=== PATIENT | female | born 1940 | race Caucasian/White ===

== ENCOUNTER 2016-04-10 08:00 | Outpatient (CLI) | payer MEDICARE, OTHER | END 2016-04-10 08:01 | disposition home or self-care (01) | DX: E43 Unspecified severe protein-calorie malnutrition (principal); Z87.19 Personal history of other diseases of the digestive system; E87.8 Other disorders of electrolyte and fluid balance, not elsewhere classified ==

== ENCOUNTER 2016-04-16 10:00 | Outpatient (CLI) | payer MEDICARE | END 2016-04-16 10:01 | disposition home or self-care (01) | DX: E43 Unspecified severe protein-calorie malnutrition (principal); Z87.19 Personal history of other diseases of the digestive system; E87.8 Other disorders of electrolyte and fluid balance, not elsewhere classified ==

== ENCOUNTER 2016-04-23 09:00 | Outpatient (CLI) | payer MEDICARE | END 2016-04-23 09:01 | disposition home or self-care (01) | DX: E43 Unspecified severe protein-calorie malnutrition (principal); E87.8 Other disorders of electrolyte and fluid balance, not elsewhere classified; Z87.19 Personal history of other diseases of the digestive system ==

== ENCOUNTER 2016-04-30 08:45 | Outpatient (CLI) | payer MEDICARE | END 2016-04-30 08:46 | disposition home or self-care (01) | DX: E43 Unspecified severe protein-calorie malnutrition (principal); Z87.19 Personal history of other diseases of the digestive system; E87.8 Other disorders of electrolyte and fluid balance, not elsewhere classified ==

== ENCOUNTER 2016-05-09 13:19 | Outpatient (CLI) | payer MEDICARE | END 2016-05-09 13:20 | disposition home or self-care (01) | DX: E43 Unspecified severe protein-calorie malnutrition (principal); Z87.19 Personal history of other diseases of the digestive system; E87.8 Other disorders of electrolyte and fluid balance, not elsewhere classified ==

== ENCOUNTER 2016-05-14 09:00 | Outpatient (CLI) | payer MEDICARE | END 2016-05-14 09:01 | disposition home or self-care (01) | DX: E43 Unspecified severe protein-calorie malnutrition (principal); Z87.19 Personal history of other diseases of the digestive system; E87.8 Other disorders of electrolyte and fluid balance, not elsewhere classified ==

== ENCOUNTER 2016-05-21 20:04 | Outpatient (CLI) | payer MEDICARE | END 2016-05-21 20:05 | disposition home or self-care (01) | DX: E43 Unspecified severe protein-calorie malnutrition (principal); E87.8 Other disorders of electrolyte and fluid balance, not elsewhere classified; Z87.19 Personal history of other diseases of the digestive system ==

== ENCOUNTER 2016-05-28 12:48 | Outpatient (CLI) | payer MEDICARE | END 2016-05-28 12:49 | disposition home or self-care (01) | DX: E43 Unspecified severe protein-calorie malnutrition (principal); Z87.19 Personal history of other diseases of the digestive system; E87.8 Other disorders of electrolyte and fluid balance, not elsewhere classified ==

== ENCOUNTER 2016-06-05 10:23 | Outpatient (CLI) | payer MEDICARE | END 2016-06-05 10:24 | disposition home or self-care (01) | DX: E43 Unspecified severe protein-calorie malnutrition (principal); Z87.19 Personal history of other diseases of the digestive system; E87.8 Other disorders of electrolyte and fluid balance, not elsewhere classified ==

== ENCOUNTER 2016-06-11 09:05 | Outpatient (CLI) | payer MEDICARE | END 2016-06-11 09:06 | disposition home or self-care (01) | DX: E43 Unspecified severe protein-calorie malnutrition (principal); Z87.19 Personal history of other diseases of the digestive system; E87.8 Other disorders of electrolyte and fluid balance, not elsewhere classified ==

== ENCOUNTER 2016-06-18 09:00 | Outpatient (CLI) | payer MEDICARE | END 2016-06-18 09:01 | disposition home or self-care (01) | DX: Z87.19 Personal history of other diseases of the digestive system (principal); E43 Unspecified severe protein-calorie malnutrition; E87.8 Other disorders of electrolyte and fluid balance, not elsewhere classified ==

== ENCOUNTER 2016-06-25 08:00 | Outpatient (CLI) | payer MEDICARE | END 2016-06-25 08:01 | disposition home or self-care (01) | DX: E43 Unspecified severe protein-calorie malnutrition (principal); Z87.19 Personal history of other diseases of the digestive system; E87.8 Other disorders of electrolyte and fluid balance, not elsewhere classified ==

== ENCOUNTER 2016-07-02 08:45 | Outpatient (CLI) | payer MEDICARE | END 2016-07-02 08:46 | disposition home or self-care (01) | DX: E43 Unspecified severe protein-calorie malnutrition (principal); E87.8 Other disorders of electrolyte and fluid balance, not elsewhere classified; Z87.19 Personal history of other diseases of the digestive system ==

== ENCOUNTER 2016-10-19 18:18 | Outpatient (CLI) | payer MEDICARE, OTHER | END 2016-10-19 18:19 | disposition short-term general hospital (02) | LOC: EMS 18:18 | PROVIDERS: ATTEND Surgery | DX: M25.552 Pain in left hip (principal); W18.39XA Other fall on same level, initial encounter; Y93.H2 Activity, gardening and landscaping; Y92.008 Other place in unspecified non-institutional (private) residence as the place of occurrence of the external cause | CPT/HCPCS: A0170; A0425; A0429 ==

== ENCOUNTER 2016-10-24 08:00 | Outpatient (CLI) | payer MEDICARE, OTHER ==
[2016-10-24 18:37] LABS: BASOPHILS # (AUTO) 0.1 10^3/uL (0.0-0.1); BASOPHILS % (AUTO) 0.7 %; EOSINOPHILS # (AUTO) 0.2 10^3/uL (0.0-0.7); EOSINOPHILS % (AUTO) 2.1 %; HCT - HEMATOCRIT 32.7 % (37.0-47.0); HGB - HEMOGLOBIN 10.8 g/dL (12.0-16.0); LYMPHOCYTES # (AUTO) 0.4 10^3/uL (1.5-3.5); LYMPHOCYTES % (AUTO) 5.2 %; MEAN CORPUSCULAR HEMOGLOBIN 29.3 pg (27.0-31.0); MEAN CORPUSCULAR HGB CONC 32.9 g/dL (32.0-36.0); MEAN CORPUSCULAR VOLUME 88.8 fL (81.0-99.0); MEAN PLATELET VOLUME 8.4 fL (7.9-10.8); MONOCYTES # (AUTO) 0.9 10^3/uL (0.0-1.0); MONOCYTES % (AUTO) 11.2 %; NEUTROPHILS # (AUTO) 6.8 10^3/uL (1.5-6.6); NEUTROPHILS % (AUTO) 80.8 %; NUCLEATED RED BLOOD CELLS AUTO 0.1 /100WBC; RED BLOOD COUNT 3.68 10^6/uL (4.20-5.40); RED CELL DISTRIBUTION WIDTH 14.9 % (12.0-15.0); UNCORRECTED WHITE BLOOD COUNT 8.4 x10^3/uL; WHITE BLOOD COUNT 8.4 x10^3/uL (4.8-10.8)
[2016-10-24 18:50] LABS: ALBUMIN/GLOBULIN RATIO 0.9 (1.0-2.2); BILIRUBIN,TOTAL 0.7 mg/dL (0.2-1.0); CALCIUM 8.9 mg/dL (8.5-10.3); MAGNESIUM 1.8 mg/dL (1.7-2.8); PHOSPHORUS 4.2 mg/dL (2.5-4.6); TOTAL PROTEIN 6.4 g/dL (6.7-8.2)
== END 2016-10-24 08:01 | disposition home or self-care (01) ==
LOC: LAB.F 08:00
PROVIDERS: ATTEND Urology
DX: K90.9 Intestinal malabsorption, unspecified (principal); K90.49 Malabsorption due to intolerance, not elsewhere classified
CPT/HCPCS: 36415; 80053; 83735; 84100; 85025

== ENCOUNTER 2016-10-30 08:00 | Outpatient (CLI) | payer MEDICARE, OTHER ==
[2016-10-30 19:08] LABS: BASOPHILS # (AUTO) 0.1 10^3/uL (0.0-0.1); BASOPHILS % (AUTO) 1.2 %; EOSINOPHILS # (AUTO) 0.5 10^3/uL (0.0-0.7); EOSINOPHILS % (AUTO) 5.6 %; HCT - HEMATOCRIT 32.6 % (37.0-47.0); HGB - HEMOGLOBIN 10.7 g/dL (12.0-16.0); LYMPHOCYTES # (AUTO) 0.8 10^3/uL (1.5-3.5); LYMPHOCYTES % (AUTO) 9.4 %; MEAN CORPUSCULAR HEMOGLOBIN 29.5 pg (27.0-31.0); MEAN CORPUSCULAR HGB CONC 32.8 g/dL (32.0-36.0); MEAN CORPUSCULAR VOLUME 89.8 fL (81.0-99.0); MEAN PLATELET VOLUME 7.7 fL (7.9-10.8); MONOCYTES # (AUTO) 0.7 10^3/uL (0.0-1.0); NEUTROPHILS # (AUTO) 6.7 10^3/uL (1.5-6.6); NEUTROPHILS % (AUTO) 75.8 %; NUCLEATED RED BLOOD CELLS AUTO 0.1 /100WBC; RED BLOOD COUNT 3.63 10^6/uL (4.20-5.40); RED CELL DISTRIBUTION WIDTH 14.6 % (12.0-15.0); UNCORRECTED WHITE BLOOD COUNT 8.8 x10^3/uL; WHITE BLOOD COUNT 8.8 x10^3/uL (4.8-10.8)
[2016-10-30 19:22] LABS: ALBUMIN/GLOBULIN RATIO 0.9 (1.0-2.2); BILIRUBIN,TOTAL 0.5 mg/dL (0.2-1.0); CREATININE 1.1 mg/dL (0.4-1.0); PHOSPHORUS 4.4 mg/dL (2.5-4.6); POTASSIUM 3.4 mmol/L (3.5-5.0); TOTAL PROTEIN 6.7 g/dL (6.7-8.2)
== END 2016-10-30 08:01 | disposition home or self-care (01) ==
LOC: LAB.R 08:00
PROVIDERS: ATTEND Urology
DX: K90.9 Intestinal malabsorption, unspecified (principal); K90.49 Malabsorption due to intolerance, not elsewhere classified
CPT/HCPCS: 80053; 83735; 84100; 85025

== ENCOUNTER → 2016-11-06 | Outpatient (CLI) | payer MEDICARE, OTHER ==
[2016-11-06 19:34] LABS: BASOPHILS % (AUTO) 0.4 %; EOSINOPHILS % (AUTO) 0.3 %; HCT - HEMATOCRIT 33.4 % (37.0-47.0); HGB - HEMOGLOBIN 10.7 g/dL (12.0-16.0); LYMPHOCYTES # (AUTO) 0.6 10^3/uL (1.5-3.5); LYMPHOCYTES % (AUTO) 7.1 %; MEAN CORPUSCULAR HEMOGLOBIN 28.8 pg (27.0-31.0); MEAN CORPUSCULAR HGB CONC 31.9 g/dL (32.0-36.0); MEAN CORPUSCULAR VOLUME 90.3 fL (81.0-99.0); MEAN PLATELET VOLUME 7.7 fL (7.9-10.8); MONOCYTES # (AUTO) 0.5 10^3/uL (0.0-1.0); MONOCYTES % (AUTO) 6.2 %; NEUTROPHILS # (AUTO) 7.4 10^3/uL (1.5-6.6); RED BLOOD COUNT 3.69 10^6/uL (4.20-5.40); RED CELL DISTRIBUTION WIDTH 14.7 % (12.0-15.0); UNCORRECTED WHITE BLOOD COUNT 8.6 x10^3/uL; WHITE BLOOD COUNT 8.6 x10^3/uL (4.8-10.8)
[2016-11-06 19:35] LABS: ALBUMIN/GLOBULIN RATIO 0.8 (1.0-2.2); BILIRUBIN,TOTAL 0.5 mg/dL (0.2-1.0); CREATININE 1.3 mg/dL (0.4-1.0); MAGNESIUM 2.1 mg/dL (1.7-2.8); PHOSPHORUS 3.7 mg/dL (2.5-4.6); POTASSIUM 3.4 mmol/L (3.5-5.0)
== END ==
LOC: LAB.R 08:00
PROVIDERS: ATTEND Urology
DX: K90.9 Intestinal malabsorption, unspecified (principal); K90.49 Malabsorption due to intolerance, not elsewhere classified
CPT/HCPCS: 80053; 83735; 84100; 84134; 84478; 85025; 86140

== ENCOUNTER → 2016-11-13 | Outpatient (CLI) | payer MEDICARE, OTHER ==
[2016-11-13 18:19] LABS: BASOPHILS # (AUTO) 0.1 10^3/uL (0.0-0.1); BASOPHILS % (AUTO) 1.3 %; EOSINOPHILS # (AUTO) 0.6 10^3/uL (0.0-0.7); EOSINOPHILS % (AUTO) 5.6 %; HCT - HEMATOCRIT 33.1 % (37.0-47.0); HGB - HEMOGLOBIN 10.7 g/dL (12.0-16.0); LYMPHOCYTES # (AUTO) 0.6 10^3/uL (1.5-3.5); LYMPHOCYTES % (AUTO) 6.2 %; MEAN CORPUSCULAR HEMOGLOBIN 28.7 pg (27.0-31.0); MEAN CORPUSCULAR HGB CONC 32.3 g/dL (32.0-36.0); MEAN CORPUSCULAR VOLUME 88.9 fL (81.0-99.0); MEAN PLATELET VOLUME 8.3 fL (7.9-10.8); MONOCYTES # (AUTO) 0.9 10^3/uL (0.0-1.0); MONOCYTES % (AUTO) 9.5 %; NEUTROPHILS # (AUTO) 7.6 10^3/uL (1.5-6.6); NEUTROPHILS % (AUTO) 77.4 %; RED BLOOD COUNT 3.72 10^6/uL (4.20-5.40); RED CELL DISTRIBUTION WIDTH 14.5 % (12.0-15.0); UNCORRECTED WHITE BLOOD COUNT 9.8 x10^3/uL; WHITE BLOOD COUNT 9.8 x10^3/uL (4.8-10.8)
[2016-11-13 18:30] LABS: BILIRUBIN,TOTAL 0.7 mg/dL (0.2-1.0); CREATININE 0.9 mg/dL (0.4-1.0); PHOSPHORUS 3.9 mg/dL (2.5-4.6); POTASSIUM 4.4 mmol/L (3.5-5.0); TOTAL PROTEIN 6.7 g/dL (6.7-8.2)
== END ==
LOC: LAB.F 08:00
PROVIDERS: ATTEND Urology
DX: K90.9 Intestinal malabsorption, unspecified (principal); K90.89 Other intestinal malabsorption
CPT/HCPCS: 80053; 83735; 84100; 85025

== ENCOUNTER 2016-11-20 08:00 | Outpatient (CLI) | payer MEDICARE, OTHER ==
[2016-11-21 11:33] LABS: BASOPHILS # (AUTO) 0.1 10^3/uL (0.0-0.1); BASOPHILS % (AUTO) 1.2 %; EOSINOPHILS # (AUTO) 0.5 10^3/uL (0.0-0.7); EOSINOPHILS % (AUTO) 5.4 %; HCT - HEMATOCRIT 34.7 % (37.0-47.0); LYMPHOCYTES # (AUTO) 0.6 10^3/uL (1.5-3.5); LYMPHOCYTES % (AUTO) 6.7 %; MEAN CORPUSCULAR HEMOGLOBIN 28.5 pg (27.0-31.0); MEAN CORPUSCULAR HGB CONC 31.8 g/dL (32.0-36.0); MEAN CORPUSCULAR VOLUME 89.6 fL (81.0-99.0); MEAN PLATELET VOLUME 8.4 fL (7.9-10.8); MONOCYTES # (AUTO) 0.5 10^3/uL (0.0-1.0); MONOCYTES % (AUTO) 5.7 %; NEUTROPHILS # (AUTO) 7.6 10^3/uL (1.5-6.6); NUCLEATED RED BLOOD CELLS AUTO 0.1 /100WBC; RED BLOOD COUNT 3.87 10^6/uL (4.20-5.40); UNCORRECTED WHITE BLOOD COUNT 9.4 x10^3/uL; WHITE BLOOD COUNT 9.4 x10^3/uL (4.8-10.8)
[2016-11-21 11:41] LABS: ALBUMIN/GLOBULIN RATIO 0.9 (1.0-2.2); BILIRUBIN,TOTAL 0.5 mg/dL (0.2-1.0); CALCIUM 9.4 mg/dL (8.5-10.3); MAGNESIUM 1.9 mg/dL (1.7-2.8); PHOSPHORUS 3.6 mg/dL (2.5-4.6); POTASSIUM 4.5 mmol/L (3.5-5.0); TOTAL PROTEIN 7.1 g/dL (6.7-8.2)
== END 2016-11-20 08:01 | disposition home or self-care (01) ==
LOC: LAB.F 08:00
PROVIDERS: ATTEND Urology
DX: K90.49 Malabsorption due to intolerance, not elsewhere classified (principal); K63.2 Fistula of intestine; K91.2 Postsurgical malabsorption, not elsewhere classified; K90.89 Other intestinal malabsorption
CPT/HCPCS: 36415; 80053; 83735; 84100; 84134; 84478; 85025; 86140

== ENCOUNTER 2016-11-27 11:00 | Outpatient (CLI) | payer MEDICARE, OTHER ==
[2016-11-27 17:46] LABS: BASOPHILS # (AUTO) 0.1 10^3/uL (0.0-0.1); BASOPHILS % (AUTO) 0.7 %; EOSINOPHILS # (AUTO) 0.4 10^3/uL (0.0-0.7); EOSINOPHILS % (AUTO) 5.2 %; HCT - HEMATOCRIT 33.2 % (37.0-47.0); HGB - HEMOGLOBIN 10.8 g/dL (12.0-16.0); LYMPHOCYTES # (AUTO) 0.6 10^3/uL (1.5-3.5); LYMPHOCYTES % (AUTO) 7.4 %; MEAN CORPUSCULAR HEMOGLOBIN 28.6 pg (27.0-31.0); MEAN CORPUSCULAR HGB CONC 32.4 g/dL (32.0-36.0); MEAN CORPUSCULAR VOLUME 88.4 fL (81.0-99.0); MEAN PLATELET VOLUME 8.1 fL (7.9-10.8); MONOCYTES # (AUTO) 0.4 10^3/uL (0.0-1.0); MONOCYTES % (AUTO) 5.7 %; NEUTROPHILS # (AUTO) 6.3 10^3/uL (1.5-6.6); RED BLOOD COUNT 3.76 10^6/uL (4.20-5.40); RED CELL DISTRIBUTION WIDTH 14.9 % (12.0-15.0); UNCORRECTED WHITE BLOOD COUNT 7.8 x10^3/uL; WHITE BLOOD COUNT 7.8 x10^3/uL (4.8-10.8)
[2016-11-27 18:18] LABS: ALBUMIN/GLOBULIN RATIO 0.9 (1.0-2.2); BILIRUBIN,TOTAL 0.4 mg/dL (0.2-1.0); CALCIUM 8.9 mg/dL (8.5-10.3); PHOSPHORUS 3.9 mg/dL (2.5-4.6); TOTAL PROTEIN 6.8 g/dL (6.7-8.2)
== END 2016-11-27 11:01 | disposition home or self-care (01) ==
LOC: LAB.R 11:00
PROVIDERS: ATTEND Urology
DX: K90.49 Malabsorption due to intolerance, not elsewhere classified (principal)
CPT/HCPCS: 80053; 83735; 84100; 85025

== ENCOUNTER 2016-12-04 09:30 | Outpatient (CLI) | payer MEDICARE, OTHER ==
[2016-12-04 18:17] LABS: BASOPHILS % (AUTO) 0.6 %; EOSINOPHILS # (AUTO) 0.4 10^3/uL (0.0-0.7); EOSINOPHILS % (AUTO) 4.5 %; HCT - HEMATOCRIT 35.1 % (37.0-47.0); HGB - HEMOGLOBIN 11.4 g/dL (12.0-16.0); LYMPHOCYTES # (AUTO) 0.7 10^3/uL (1.5-3.5); LYMPHOCYTES % (AUTO) 8.7 %; MEAN CORPUSCULAR HEMOGLOBIN 28.7 pg (27.0-31.0); MEAN CORPUSCULAR HGB CONC 32.5 g/dL (32.0-36.0); MEAN CORPUSCULAR VOLUME 88.4 fL (81.0-99.0); MEAN PLATELET VOLUME 8.4 fL (7.9-10.8); MONOCYTES # (AUTO) 0.5 10^3/uL (0.0-1.0); MONOCYTES % (AUTO) 6.5 %; NEUTROPHILS # (AUTO) 6.2 10^3/uL (1.5-6.6); NEUTROPHILS % (AUTO) 79.7 %; RED BLOOD COUNT 3.97 10^6/uL (4.20-5.40); UNCORRECTED WHITE BLOOD COUNT 7.8 x10^3/uL; WHITE BLOOD COUNT 7.8 x10^3/uL (4.8-10.8)
[2016-12-04 18:22] LABS: BILIRUBIN,TOTAL 0.7 mg/dL (0.2-1.0); BUN - BLOOD UREA NITROGEN 70 mg/dL (6-20); CALCIUM 9.1 mg/dL (8.5-10.3); CARBON DIOXIDE - CO2 18 mmol/L (21-32); CHLORIDE 110 mmol/L (101-111); CREATININE 0.9 mg/dL (0.4-1.0); GFR - MDRD 61 (>89); GLUCOSE 120 mg/dL (70-100); PHOSPHORUS 3.9 mg/dL (2.5-4.6); POTASSIUM 3.7 mmol/L (3.5-5.0); PREALBUMIN 24 mg/dL (18-45); SODIUM 136 mmol/L (135-145); TOTAL PROTEIN 6.9 g/dL (6.7-8.2); TRIGLYCERIDES 63 mg/dL
== END 2016-12-04 09:31 | disposition home or self-care (01) ==
LOC: LAB.R 09:30
PROVIDERS: ATTEND Urology
DX: K90.49 Malabsorption due to intolerance, not elsewhere classified (principal)
CPT/HCPCS: 80053; 83735; 84100; 84134; 84478; 85025; 86140

== ENCOUNTER → 2016-12-11 | Outpatient (CLI) | payer MEDICARE, OTHER ==
[2016-12-11 19:20] LABS: BASOPHILS % (AUTO) 0.5 %; EOSINOPHILS # (AUTO) 0.3 10^3/uL (0.0-0.7); EOSINOPHILS % (AUTO) 4.5 %; HCT - HEMATOCRIT 37.4 % (37.0-47.0); HGB - HEMOGLOBIN 11.9 g/dL (12.0-16.0); LYMPHOCYTES # (AUTO) 0.9 10^3/uL (1.5-3.5); LYMPHOCYTES % (AUTO) 12.5 %; MEAN CORPUSCULAR HEMOGLOBIN 28.2 pg (27.0-31.0); MEAN CORPUSCULAR VOLUME 88.1 fL (81.0-99.0); MEAN PLATELET VOLUME 8.5 fL (7.9-10.8); MONOCYTES # (AUTO) 0.7 10^3/uL (0.0-1.0); MONOCYTES % (AUTO) 10.2 %; NEUTROPHILS % (AUTO) 72.3 %; RED BLOOD COUNT 4.24 10^6/uL (4.20-5.40); RED CELL DISTRIBUTION WIDTH 15.1 % (12.0-15.0)
[2016-12-11 19:54] LABS: BILIRUBIN,TOTAL 0.5 mg/dL (0.2-1.0); BUN - BLOOD UREA NITROGEN 67 mg/dL (6-20); CALCIUM 9.6 mg/dL (8.5-10.3); CARBON DIOXIDE - CO2 18 mmol/L (21-32); CHLORIDE 108 mmol/L (101-111); CREATININE 0.9 mg/dL (0.4-1.0); GFR - MDRD 61 (>89); GLUCOSE 85 mg/dL (70-100); MAGNESIUM 2.2 mg/dL (1.7-2.8); PHOSPHORUS 3.7 mg/dL (2.5-4.6); POTASSIUM 4.6 mmol/L (3.5-5.0); PREALBUMIN 29 mg/dL (18-45); SODIUM 136 mmol/L (135-145); TOTAL PROTEIN 7.3 g/dL (6.7-8.2); TRIGLYCERIDES 84 mg/dL
== END ==
LOC: LAB.F 08:00
PROVIDERS: ATTEND Urology
DX: K90.49 Malabsorption due to intolerance, not elsewhere classified (principal)
CPT/HCPCS: 80053; 83735; 84100; 84134; 84478; 85025; 86140

== ENCOUNTER 2016-12-18 19:34 | Outpatient (CLI) | payer MEDICARE, OTHER ==
[2016-12-18 17:43] LABS: BASOPHILS % (AUTO) 0.5 %; EOSINOPHILS # (AUTO) 0.2 10^3/uL (0.0-0.7); EOSINOPHILS % (AUTO) 2.6 %; HCT - HEMATOCRIT 36.3 % (37.0-47.0); HGB - HEMOGLOBIN 11.9 g/dL (12.0-16.0); LYMPHOCYTES % (AUTO) 10.5 %; MEAN CORPUSCULAR HEMOGLOBIN 28.2 pg (27.0-31.0); MEAN CORPUSCULAR HGB CONC 32.7 g/dL (32.0-36.0); MEAN CORPUSCULAR VOLUME 86.2 fL (81.0-99.0); MEAN PLATELET VOLUME 8.6 fL (7.9-10.8); MONOCYTES % (AUTO) 11.1 %; NEUTROPHILS # (AUTO) 7.1 10^3/uL (1.5-6.6); NEUTROPHILS % (AUTO) 75.3 %; RED BLOOD COUNT 4.21 10^6/uL (4.20-5.40); RED CELL DISTRIBUTION WIDTH 15.1 % (12.0-15.0); UNCORRECTED WHITE BLOOD COUNT 9.4 x10^3/uL; WHITE BLOOD COUNT 9.4 x10^3/uL (4.8-10.8)
[2016-12-18 18:02] LABS: BILIRUBIN,TOTAL 0.5 mg/dL (0.2-1.0); CALCIUM 9.4 mg/dL (8.5-10.3); CREATININE 0.9 mg/dL (0.4-1.0); PHOSPHORUS 3.5 mg/dL (2.5-4.6); POTASSIUM 4.3 mmol/L (3.5-5.0); TOTAL PROTEIN 7.3 g/dL (6.7-8.2)
== END 2016-12-18 19:35 | disposition home or self-care (01) ==
LOC: LAB.R 19:34
PROVIDERS: ATTEND Urology
DX: K90.49 Malabsorption due to intolerance, not elsewhere classified (principal)
CPT/HCPCS: 80053; 83735; 84100; 85025

== ENCOUNTER 2017-06-05 13:35 | Inpatient (IN) | payer MEDICARE, OTHER ==
--- NOTE | 2017-06-05 14:44 | ED Physician Documentation ---
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 for about 2 yr, and she had bladder cancer and has a RLQ urostomy for about 1 yr, and 2 weeks ago she had more surgery to create a new urostomy to be used for self catheterization and she has a R chest central access device for TPN her R chest dressing was changed at [facility] yesterday and a diff antibiotic patch was used now there is redness to the chest and she has had a fever to 100.3 no cough NVD new urinary sx Review of Systems Constitutional: reports: Fever Throat: denies: Sore throat Cardiac: denies: Chest pain / pressure Respiratory: denies: Dyspnea, Cough GI: denies: Abdominal Pain, Nausea, Vomiting, Diarrhea : reports: Other (urostomy) Skin: reports: Rash Endocrine: denies: Easy bruising / bleeding Immunocompromised: denies: Immunocompromised PD PAST MEDICAL HISTORY - Past Medical History Cardiovascular: None Neuro: None Endocrine/Autoimmune: HyPOthyroidism GI: Other : Other Psych: None Musculoskeletal: None Derm: None - Past Surgical History Past Surgical History: Yes General: Cholecystectomy, Bowel surgery Ortho: Hip replacement /CROSS CUT SAWYER: Hysterectomy, Oophrectomy HEENT: Tonsil/Adenoidectomy - Present Medications Home Medications: Ambulatory Orders Medication Instructions Recorded Confirmed Bumetanide [Bumetanide] 2 mg PO DAILY 06/05/17 06/05/17 Escitalopram Oxalate [Lexapro] 20 mg PO DAILY 06/05/17 06/05/17 Levothyroxine Sodium [Synthroid] 112 mcg PO QDAC 06/05/17 06/05/17 Potassium Chloride 20 meq PO DAILYWM 06/05/17 06/05/17 oxyCODONE [Roxicodone] 5 mg PO Q6H PRN 06/05/17 06/05/17 - Allergies Allergies/Adverse Reactions: Allergies Allergy/AdvReac Type Severity Reaction Status Date / Time codeine Allergy Nausea Verified 06/05/17 13:52 ciprofloxacin [From Cipro] AdvReac bones ache Verified 06/05/17 13:52 ciprofloxacin HCl * AdvReac bones ache Verified 06/05/17 13:52 [From Cipro] - Social History Does the pt smoke?: No Smoking Status: Former smoker Does the pt have substance abuse?: No - Immunizations Immunizations are current?: Yes PD ED PE NORMAL - Vitals Vital signs reviewed: Yes (tachy) - General General: Alert and oriented X 3 - Neck Neck: Supple, no meningeal sign - Cardiac Cardiac: RRR, No murmur, Other - Respiratory Respiratory: No respiratory distress, Clear bilaterally - Abdomen Abdomen: Soft, Non tender, Other (LLQ ileostomy, 2 RLQ ileostomy, the new one is leaking urine around the tube) - Derm Derm: Other (R chest with diffuse erythema, under op site dressing there is increased geomtric erythema suggesting some local chemical rxn, but there is also a 3 X 2 cm bullae containing thick green pus approx 1 cm above actual device insertion site, no crepitus, culture obtained and in doing dso bullae sloughed off) - Extremities Extremities: Other (mild symm edema) - Neuro Neuro: Alert and oriented X 3 Results - Vitals Vitals: Vital Signs - 24 hr 06/05/17 13:45 Temperature 37.4 C Heart Rate 109 H Respiratory 20 Rate Blood Pressure 110/75 O2 Saturation 95 Oxygen O2 Source Room air - Labs Labs: Microbiology 06/05/17 14:25 Wound Culture - Preliminary Abscess Laboratory Tests 06/05/17 06/05/17 06/05/17 15:26 15:26 15:26 WBC 13.5 H RBC 4.60 Hgb 12.0 Hct 36.9 L MCV 80.3 L MCH 26.2 L MCHC 32.6 RDW 17.7 H Plt Count 567 H MPV 7.1 L Neut # 11.5 H Lymph # 0.7 L [place] # 1.1 H Eos # 0.1 Baso # 0.2 H Absolute Nucleated RBC 0.00 Nucleated RBC % 0.0 Sodium 137 Potassium 3.7 Chloride 95 L Carbon Dioxide 27 Anion Gap 15.0 H BUN 32 H Creatinine 1.2 H Estimated GFR (MDRD) 44 L Glucose 117 H Lactic Acid 1.3 Calcium 8.8 PD MEDICAL DECISION MAKING - ED course ED course: seen by [facility] as well, site cleaned dressing changed erythema seems [employer] party an acute inflammatory rxn to new dressing but also febroile 100.3 at home, elev WBC and purulence on exam at this time infection is actually just above line insertion site so hopefully if tx aggressively will not need to pull line rec pt atay for obs overnight to get IV ab no hx MRSA and pt is very worried about getting C diff again so just gave zosyn and florastor blood cx were pulled from central line as well and periph paged hospitalist at 1700 d/w hospitalist at 1810 Departure - Departure Disposition: 66 [facility] DC/Xfer Clinical Impression: Cellulitis Qualifiers: Site of cellulitis: trunk Site of cellulitis of trunk: chest wall Qualified Code(s): L03.313 - Cellulitis of chest wall Condition: Fair
--- NOTE | 2017-06-05 15:26 | XRAY Report ---
EXAM: CHEST RADIOGRAPHY EXAM DATE: 06/05/2017 03:09 PM. CLINICAL HISTORY: Infected Right chest central access. COMPARISON: None. TECHNIQUE: 2 views. FINDINGS: Lungs/Pleura: Horizontal band opacities extend across the left mid lung to the pleura from the left h ilum, could represent malignancy, scarring or pneumonia. There are no comparisons. Small left pleural effusion. No pneumothorax. Mediastinum: Heart and mediastinal contours are unremarkable. Other: Right central line with the tip at the superior vena cava/right atrial junction. IMPRESSION: Horizontal band opacities extend across the left mid lung to the pleura from the left hil um, could represent malignancy, scarring or pneumonia. There are no comparisons. Small left pleural e ffusion. [facility] Referring Provider Line: [phone] SITE ID: [id number]
[2017-06-05 15:43] LABS: BASOPHILS # (AUTO) 0.2 10^3/uL (0.0-0.1); BASOPHILS % (AUTO) 1.2 %; EOSINOPHILS # (AUTO) 0.1 10^3/uL (0.0-0.7); EOSINOPHILS % (AUTO) 0.4 %; LYMPHOCYTES # (AUTO) 0.7 10^3/uL (1.5-3.5); LYMPHOCYTES % (AUTO) 5.1 %; MEAN CORPUSCULAR HEMOGLOBIN 26.2 pg (27.0-31.0); MEAN CORPUSCULAR HGB CONC 32.6 g/dL (32.0-36.0); MEAN CORPUSCULAR VOLUME 80.3 fL (81.0-99.0); MEAN PLATELET VOLUME 7.1 fL (7.9-10.8); MONOCYTES # (AUTO) 1.1 10^3/uL (0.0-1.0); MONOCYTES % (AUTO) 8.1 %; NEUTROPHILS # (AUTO) 11.5 10^3/uL (1.5-6.6); NEUTROPHILS % (AUTO) 85.2 %; PLT - PLATELET COUNT 567 10^3/uL (130-450); RED CELL DISTRIBUTION WIDTH 17.7 % (12.0-15.0); WHITE BLOOD COUNT 13.5 x10^3/uL (4.8-10.8)
[2017-06-05 15:54] LABS: CALCIUM 8.8 mg/dL (8.5-10.3); CREATININE 1.2 mg/dL (0.4-1.0)
[2017-06-05] MEDS ORDERED: SACCHAROMYCES BOULARDII 250 MG CAPSULE PO STA (17:03)
[2017-06-05] MEDS ORDERED: PIPERACILLIN/TAZOBACTAM 3.375 GM in SODIUM CHLORIDE 0.9% MINIBAG 100 ML IV STA (17:03)
[2017-06-05] MEDS ORDERED: PROCHLORPERAZINE 10 MG/2 ML VIAL IVP PRN (19:40)
[2017-06-05] MEDS ORDERED: TEMAZEPAM 15 MG CAPSULE PO PRN (19:40)
[2017-06-05] MEDS ORDERED: CLINDAMYCIN 600 MG/50 ML 50 ML IV SCH (20:00)
[2017-06-05] MEDS: SODIUM CHLORIDE FLUSH 0.9% 10 ML SYRINGE IVP PRN (21:10)
[2017-06-05] MEDS: CLINDAMYCIN 600 MG/50 ML 50 ML IV SCH (21:11)
[2017-06-05] MEDS: D5.45NS W/20 MEQ KCL 1,000 ML IV SCH (21:11)
--- NOTE | 2017-06-05 21:46 | HISTORY & PHYSICAL EXAMINATION ---
History of Present Illness - Admitted From Admitted From:: home - History Obtained From Records Reviewed: yes History obtained from: patient - History of Present Illness HPI Comment/Other: Mrs. Princess Aldana is a very pleasant 77-year-old female who has a history of malnutrition for which she takes nightly TPN through port in her chest. She also has multiple cancer history. She has been having some increasing discomfort in the area of her port and came into the emergency department today where an abscess was drained just superior to the port. She is brought into the hospital for IV antibiotics and monitoring. History - Past Medical History Cardiovascular: reports: None, Congestive heart failure Respiratory: reports: None Neuro: reports: None Endocrine/Autoimmune: reports: HyPOthyroidism, Other (thyroid cancer history) GI: reports: Other : reports: Other (bladder cancer history) HEENT: reports: None Psych: reports: None Musculoskeletal: reports: None Derm: reports: None MRSA Hx?: No Other Past Medical History: urostomy, TPN at night (started 9 months due to malabsorption) - Past Surgical History General: reports: Cholecystectomy, Bowel surgery Ortho: reports: Hip replacement /[employer]: reports: Hysterectomy, Oophrectomy, Other (s/p cystectomy, creation of neobladder) HEENT: reports: Tonsil/Adenoidectomy, Other (thyroidectomy) Meds/Allgy - Home Medications Home Medications: Ambulatory Orders Medication Instructions Recorded Confirmed Bumetanide [Bumetanide] 2 mg PO DAILY 06/05/17 06/05/17 Escitalopram Oxalate [Lexapro] 20 mg PO DAILY 06/05/17 06/05/17 Levothyroxine Sodium [Synthroid] 112 mcg PO QDAC 06/05/17 06/05/17 Multivitamin [Multiple Vitamins] 1 tab DAILY 06/05/17 06/05/17 Potassium Chloride 20 meq PO DAILYWM 06/05/17 06/05/17 oxyCODONE [Roxicodone] 5 mg PO Q6H PRN 06/05/17 06/05/17 - Allergies Allergies/Adverse Reactions: Allergies Allergy/AdvReac Type Severity Reaction Status Date / Time codeine Allergy Nausea Verified 06/05/17 13:52 ciprofloxacin [From Cipro] AdvReac bones ache Verified 06/05/17 13:52 ciprofloxacin HCl * AdvReac bones ache Verified 06/05/17 13:52 [From Cipro] Review of Systems - Constitutional Constitutional: denies: Fatigue, Fever, Chills, Malaise - Eyes Eyes: denies: Pain, Irritation, Blurred vision, Dipolpia - Ears, Nose & Throat Ears, Nose & Throat: denies: Ear pain, Hearing loss, Hearing aids, Tinnitus, Vertigo, Nasal pain, Nasal discharge - Cardiovascular Cariovascular: denies: Irregular heart rate, Palpitations, Chest pain, Edema - Respiratory Respiratory: denies: Cough, Sputum production, Wheezing, Snoring - Gastrointestinal Gastrointestinal: denies: Abdominal pain, Abdominal distention, Constipation, Diarrhea, Change in bowel habits, Rectal bleeding - Genitourinary Genitourinary: denies: Dysuria, Frequency, Urgency, Hematuria - Musculoskeletal Musculoskeletal: denies: Muscle pain, Back pain, Muscle aches, Stiffness - Integumentary Integumentary: reports: Pruritis, Lesions, Other (abscess r chest) - Neurological Neurological: denies: General weakness, Focal weakness, Headache, Dizziness, Numbness - Psychiatric Psychiatric: denies: Depression, Anxiety, Suicidal, Hallucinations - Endocrine Endocrine: denies: Polyuria, Polydypsia, Polyphagia, Intolerance to cold - Hematologic/Lymphatic Hematologic/Lymphatic: denies: Anemia, Bruising, Petechiae, Blood clots, Lymphadenopathy - All Other Systems All Other Systems: reports: Reviewed and negative Exam - Vital Signs Reviewed Vital Signs: Yes Vital Signs: Vital Signs x48h Temp Pulse Resp BP Pulse Ox 06/05/17 20:17 36.6 C 90 18 83/60 L 98 - Physical Exam General Appearance: positive: No acute distress, Alert Eyes Bilateral: positive: Normal inspection, PERRL, EOMI, No lid inflammation, Conjunctivae nml, No scleral icterus ENT: positive: ENT inspection nml, Pharynx nml, No signs of dehydration Neck: positive: Nml inspection, Thyroid nml, No JVD, Trachea midline. negative : Thyromegaly Respiratory: positive: Chest non-tender, No respiratory distress, Breath sounds nml. negative: Wheezes, Rales, Rhonchi Cardiovascular: positive: Regular rate & rhythm, No murmur, No gallop Peripheral Pulses: positive: 1+ Abdomen: positive: Non-tender, No organomegaly, Nml bowel sounds, No distention. negative: Guarding, Rebound Back: positive: Nml inspection. negative: CVA tenderness (R), CVA tenderness (L ) Skin: positive: Warm, Dry, Other (rubor around area of abscess superior to port) . negative: Cyanosis, Pallor Extremities: positive: Non-tender, Full ROM, Nml appearance, No pedal edema Neurologic/Psychiatric: positive: Oriented x3, CN's nml (2-12), Motor nml, Sensation nml, Mood/affect nml Conclusion/Plan - Problem List (1) Cellulitis Conclusion/Plan: The pt had an abscess drained in the ED, I have put her on clindamycin IV. Will monitor overnight, if pt remains stable will consider d/c home tomorrow. Qualifiers: Site of cellulitis: trunk Site of cellulitis of trunk: chest wall Qualified Code(s): L03.313 - Cellulitis of chest wall (2) CHF (congestive heart failure) Conclusion/Plan: Pt has CHF history, no signs of CHF exacerbation at this time. Continue home medications. (3) Anxiety and depression Conclusion/Plan: Well managed, continue Lexapro (4) Hypothyroid Conclusion/Plan: Continue levothyroxine. Will order TSH level. - Lab Results Lab results reviewed: Yes Fish Bones: 06/05/17 15:26 06/05/17 15:26 - Diagnostic Imaging Results Diagnostic Imaging Results: positive: Final report reviewed Diagnostic Imaging Results Comments: EXAM: CHEST RADIOGRAPHY EXAM DATE: 06/05/2017 03:09 PM. CLINICAL HISTORY: Infected Right chest central access. COMPARISON: None. TECHNIQUE: 2 views. FINDINGS: Lungs/Pleura: Horizontal band opacities extend across the left mid lung to the pleura from the left hilum, could represent malignancy, scarring or pneumonia. There are no comparisons. Small left pleural effusion. No pneumothorax. Mediastinum: Heart and mediastinal contours are unremarkable. Other: Right central line with the tip at the superior vena cava/right atrial junction. IMPRESSION: Horizontal band opacities extend across the left mid lung to the pleura from the left hilum, could represent malignancy, scarring or pneumonia. There are no comparisons. Small left pleural effusion. Core Measures - Anticipated LOS I expect patient to be DC'd or transferred within 96 hours.: Yes - DVT/VTE - Prophylaxis VTE/DVT Device ordered at admit?: Yes
[2017-06-05 22:19] LABS: BILIRUBIN,URINE NEGATIVE (NEGATIVE); GLUCOSE, URINE (UA) NEGATIVE (NEGATIVE); KETONES,URINE (UA) NEGATIVE (NEGATIVE); LEUKOCYTE ESTERASE, URINE MODERATE (NEGATIVE); NITRITE,URINE NEGATIVE (NEGATIVE); OCCULT BLOOD,URINE MODERATE (NEGATIVE); PROTEIN,URINE NEGATIVE (NEGATIVE); UROBILINOGEN,URINE 0.2 (NORMAL) E.U./dL (NORMAL)
[2017-06-05 22:32] LABS: CLARITY,URINE CLOUDY (CLEAR)
[2017-06-05 22:38] LABS: RBC,URINE TNTC /HPF (0-5); WBC CLUMPS,URINE PRESENT
[2017-06-05 22:39] LABS: BACTERIA,URINE Moderate /HPF (None Seen); SQUAMOUS EPITHELIAL CELL,UR FEW Squamous (<= Few)
[2017-06-06] MEDS: SODIUM CHLORIDE FLUSH 0.9% 10 ML SYRINGE IVP SCH ×3 (01:32→15:48)
[2017-06-06] MEDS: CLINDAMYCIN 600 MG/50 ML 50 ML IV SCH ×2 (06:01→14:26)
[2017-06-06] MEDS: D5.45NS W/20 MEQ KCL 1,000 ML IV SCH ×2 (06:12→19:57)
[2017-06-06] MEDS: LEVOTHYROXINE 112 MCG TABLET PO SCH (06:13)
[2017-06-06] MEDS: oxyCODONE 5 MG TABLET PO PRN ×4 (06:32→21:27)
[2017-06-06] MEDS: POTASSIUM CHLORIDE 20 MEQ TABLET PO SCH (08:20)
[2017-06-06] MEDS: ESCITALOPRAM 10 MG TABLET PO SCH (08:20)
[2017-06-06] MEDS: BUMETANIDE 1 MG TABLET PO SCH (08:25)
[2017-06-06] MEDS: POLYETHYLENE GLYCOL 3350 17 GM PACKET PO SCH (08:26)
[2017-06-06 09:07] LABS: BASOPHILS # (AUTO) 0.1 10^3/uL (0.0-0.1); BASOPHILS % (AUTO) 0.8 %; EOSINOPHILS # (AUTO) 0.1 10^3/uL (0.0-0.7); EOSINOPHILS % (AUTO) 1.7 %; LYMPHOCYTES # (AUTO) 0.6 10^3/uL (1.5-3.5); LYMPHOCYTES % (AUTO) 7.4 %; MEAN CORPUSCULAR HGB CONC 32.1 g/dL (32.0-36.0); MEAN CORPUSCULAR VOLUME 80.9 fL (81.0-99.0); MEAN PLATELET VOLUME 6.9 fL (7.9-10.8); MONOCYTES # (AUTO) 0.8 10^3/uL (0.0-1.0); MONOCYTES % (AUTO) 9.2 %; NEUTROPHILS # (AUTO) 6.8 10^3/uL (1.5-6.6); NEUTROPHILS % (AUTO) 80.9 %; PLT - PLATELET COUNT 479 10^3/uL (130-450); RED BLOOD COUNT 4.23 10^6/uL (4.20-5.40); RED CELL DISTRIBUTION WIDTH 17.3 % (12.0-15.0); WHITE BLOOD COUNT 8.4 x10^3/uL (4.8-10.8)
[2017-06-06 09:20] LABS: ALBUMIN 2.5 g/dL (3.2-5.5); ALBUMIN/GLOBULIN RATIO 0.6 (1.0-2.2); BILIRUBIN,TOTAL 0.6 mg/dL (0.2-1.0); CALCIUM 8.5 mg/dL (8.5-10.3); CREATININE 1.1 mg/dL (0.4-1.0); TOTAL PROTEIN 6.6 g/dL (6.7-8.2)
--- NOTE | 2017-06-06 13:07 | PROVIDER PROGRESS NOTE ---
Subjective - Prog Note Date Prog Note Date: 06/06/17 Prog Note Time: 08:00 - Subjective Pt reports feeling: No change, Worse Subjective: Chloé complains of moderate to severe right upper chest and neck pain that is related to the infected RU chest port. She denies other chest pain, SOB, N/V or a new cough. Current Medications - Current Medications Current Medications: Active Medications Bumetanide (Bumex) 2 mg PO DAILY [facility] Last Admin: 06/07/17 10:21 Dose: 2 mg Escitalopram Oxalate (Lexapro) 20 mg PO DAILY [facility] Last Admin: 06/07/17 10:17 Dose: 20 mg Potassium Chloride/Dextrose/Sod Cl (D5.45ns W/20 Meq Kcl) 1,000 mls @ 100 mls/ hr IV .Q10H [facility] Last Admin: 06/07/17 09:31 Dose: 100 mls/hr Cefepime HCl 2 gm/ Sodium (Chloride) 100 mls @ 200 mls/hr IV BID [facility] Last Infusion: 06/07/17 11:11 Dose: Infused Vancomycin HCl 1 gm/ Sodium (Chloride) 250 mls @ 167 mls/hr IV Q24H [facility] Multivitamins 10 ml/ Amino (Acids/Electrolytes/Dextrose) 2,010 mls @ 83 mls/hr IV Q24H [facility] PRN Reason: Protocol Last Admin: 06/07/17 00:32 Dose: 83 mls/hr Fat Emulsion Intravenous (Intralipid 20%) 250 mls @ 21 mls/hr IV Q24H [facility] Last Admin: 06/07/17 00:32 Dose: 21 mls/hr Chromium/Copper/Manganese/Seleni/Zn 1 ml/ Sodium Chloride 51 mls @ 5 mls/hr IV Q24H [facility] Last Infusion: 06/07/17 09:31 Dose: Infused Magnesium Sulfate (Magnesium Sulfate) 2 gm in 50 mls @ 50 mls/hr IV Q1H [facility] Stop: 06/07/17 13:59 Potassium Chloride (Potassium Chloride) 10 meq in 100 mls @ 100 mls/hr IV Q1H [facility] Stop: 06/07/17 15:59 Iron Sucrose 200 mg/ Sodium (Chloride) 110 mls @ 110 mls/hr IV ONCE ONE Stop: 06/07/17 12:59 Levothyroxine Sodium (Synthroid) 112 mcg PO QDAC [facility] Last Admin: 06/07/17 06:04 Dose: 112 mcg Oxycodone HCl (Roxicodone) 5 mg PO Q4HR PRN PRN Reason: Pain 5 to 7 Last Admin: 06/07/17 10:17 Dose: 5 mg Polyethylene Glycol (Miralax) 17 gm PO DAILY [facility] Last Admin: 06/07/17 10:24 Dose: Not Given Potassium Chloride (K-Dur) 20 meq PO DAILYWM [facility] Last Admin: 06/07/17 10:18 Dose: 20 meq Prochlorperazine Edisylate (Compazine Inj) 10 mg IVP Q6HR PRN PRN Reason: Nausea / Vomiting Last Admin: 06/06/17 15:48 Dose: 10 mg Sodium Chloride (Normal Saline Flush 0.9%) 10 ml IVP PRN PRN PRN Reason: NEEDED PER PROVIDER ORDERS Last Admin: 06/07/17 06:04 Dose: 10 ml Sodium Chloride (Normal Saline Flush 0.9%) 10 ml IVP 0100,0900,1700 [facility] Last Admin: 06/07/17 10:24 Dose: Not Given Temazepam (Restoril) 15 mg PO QPM PRN PRN Reason: Insomnia Bumetanide [Bumetanide] 4 mg PO DAILY 06/05/17 Escitalopram Oxalate [Lexapro] 20 mg PO DAILY 06/05/17 Levothyroxine Sodium [Synthroid] 112 mcg PO QDAC 06/05/17 Multivitamin [Multiple Vitamins] 1 tab DAILY 06/05/17 Potassium Chloride 20 meq PO DAILYWM 06/05/17 oxyCODONE [Roxicodone] 5 mg PO Q6H PRN 06/05/17 Objective - Vital Signs/Intake & Output Reviewed Vital Signs: Yes Vital Signs: Vital Signs x48h Temp Pulse Resp BP Pulse Ox 06/06/17 08:00 37.2 C 89 17 92/69 93 Intake & Output: Intake & Output 06/03/17 06/04/17 06/05/17 06/06/17 23:59 23:59 23:59 23:59 Intake Total 150 1721.667 Output Total 425 900 Balance -275 821.667 - Objective General Appearance: positive: Alert, Moderate distress, Anxious Eyes Bilateral: positive: Normal inspection Eyes: OU Conjunctivae pale ENT: positive: ENT inspection nml, Pharynx nml, Dry mucous membranes Neck: positive: Nml inspection, Thyroid nml, No JVD, Stiff neck Respiratory: positive: Chest non-tender, No respiratory distress, Wheezes Cardiovascular: positive: Regular rate & rhythm, No gallop, Systolic murmur, Decreased pulse(s) Peripheral Pulses: 1+ Radial (R), 1+ Radial (L) Abdomen: positive: Tenderness, Abnml bowel sounds, Other (ostomy device, 2 right abdominal borden devices from [place] neobladders.) Back: positive: Nml inspection Skin: positive: No rash, Warm, Dry Extremities: positive: Non-tender, Pedal edema, Joint swelling Neurologic/Psychiatric: positive: Oriented x3, CN's nml (2-12), Motor nml, Sensation nml, Depressed mood/affect Reflexes: Bicep (R): 2+, Bicep (L): 2+ - Lab Results Fish Bones: 06/07/17 05:15 06/07/17 05:15 Other Labs: Lab Results x24hrs 06/06/17 06/06/17 06/05/17 Range/Units 08:58 08:58 22:10 WBC 8.4 (4.8-10.8) x10^3/uL RBC 4.23 (4.20-5.40) 10^6/uL Hgb 11.0 L (12.0-16.0) g/dL Hct 34.2 L (37.0-47.0) % MCV 80.9 L (81.0-99.0) fL MCH 26.0 L (27.0-31.0) pg MCHC 32.1 (32.0-36.0) g/dL RDW 17.3 H (12.0-15.0) % Plt Count 479 H (130-450) 10^3/uL MPV 6.9 L (7.9-10.8) fL Neut # 6.8 H (1.5-6.6) 10^3/uL Lymph # 0.6 L (1.5-3.5) 10^3/uL [place] # 0.8 (0.0-1.0) 10^3/uL Eos # 0.1 (0.0-0.7) 10^3/uL Baso # 0.1 (0.0-0.1) 10^3/uL Absolute Nucleated RBC 0.00 x10^3/uL Nucleated RBC % 0.0 /100WBC Sodium 136 (135-145) mmol/L Potassium 3.7 (3.5-5.0) mmol/L Chloride 95 L (101-111) mmol/L Carbon Dioxide 28 (21-32) mmol/L Anion Gap 13.0 (6-13) BUN 27 H (6-20) mg/dL Creatinine 1.1 H (0.4-1.0) mg/dL Estimated GFR (MDRD) 48 L (>89) Glucose 151 H (70-100) mg/dL Calcium 8.5 (8.5-10.3) mg/dL Total Bilirubin 0.6 (0.2-1.0) mg/dL AST 26 (10-42) IU/L ALT 23 (10-60) IU/L Alkaline Phosphatase 178 H (42-121) IU/L Total Protein 6.6 L (6.7-8.2) g/dL Albumin 2.5 L (3.2-5.5) g/dL Globulin 4.1 (2.1-4.2) g/dL Albumin/Globulin Ratio 0.6 L (1.0-2.2) Urine Color YELLOW Urine Clarity CLOUDY (CLEAR) Urine pH 7.0 (5.0-7.5) PH Ur Specific [place] 1.010 (1.002-1.030) Urine Protein NEGATIVE (NEGATIVE) mg/dL Urine Glucose (UA) NEGATIVE (NEGATIVE) mg/dL Urine Ketones NEGATIVE (NEGATIVE) mg/dL Urine Occult Blood MODERATE H (NEGATIVE) Urine Nitrite NEGATIVE (NEGATIVE) Urine Bilirubin NEGATIVE (NEGATIVE) Urine Urobilinogen 0.2 (NORMAL) (NORMAL) E.U./dL Ur Leukocyte Esterase MODERATE H (NEGATIVE) Urine RBC TNTC H (0-5) /HPF Urine WBC >25 H (0-5) /HPF Urine WBC Clumps PRESENT Ur Squamous Epith Cells FEW Squamous (<= Few) Urine Bacteria Moderate H (None Seen) /HPF Ur Microscopic Review INDICATED Urine Culture Comments INDICATED - Diagnostic Imaging Diagnostic Imaging Results: positive: Final report reviewed Assessment/Plan - Problem List (1) Cellulitis and abscess of trunk Impression: Patient presented to the ED with right upper chest cellulitis, which was lanced , drained and she was admitted for further IV antibiotic treatment. Plan: Patient will have her right chest port removed by Dr. Leung, general surgery later this evening as this is thought to be the source of infection. (2) CHF (congestive heart failure) Impression: Patient has a history of this and takes Bumex and potassium at home. She has chronic BLE edema, orthopnea, and H[place]. Plan: Continue to monitor fluid status. (3) Anxiety and depression Impression: Patient and her note that she has had greater than 90 days in the hospital over the past year. She does not want to be inpatient anymore than necessary. Plan: Promote well-being and sense of worth by spending extra time and frequent nursing cares. (4) Hypothyroid Impression: Patient takes Synthroid at home for this disease that she has had for several years. Plan: Check TSH and continue supplement. (5) Altered bowel elimination due to intestinal ostomy Impression: Per chart review patient has had a very complicated bowel surgical history. It began in 1991 with stage 3 cervical CA, recurrent after cobalt radiation to her pelvis. 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 *Her complications seems to start happening after a fall in 2014 when she fractured her femur. She developed an enterocutaneous fistula where she underwent 2 complicated surgeries; she had several adhesions and fragile tissues secondary to multiple previous surgeries and her radiation treatment for cervical and bladder cancer. She remains with an [place] pouch urostomy, a loop iliostomy located in the midline, and another borden tube below the [place] pouch. Plan: Continue to monitor and continue nursing cares.
[2017-06-06] MEDS: SODIUM CHLORIDE FLUSH 0.9% 10 ML SYRINGE IVP PRN ×2 (15:48→19:59)
[2017-06-06] MEDS ORDERED: VANCOMYCIN INJ 1.5 GM in SODIUM CHLORIDE 0.9% 500 ML IV ONE (16:55)
[2017-06-06] MEDS ORDERED: VANCOMYCIN PER PHARMACY 100 GM in SODIUM CHLORIDE 0.9% 250 ML IV SCH (17:00)
[2017-06-06] MEDS ORDERED: VANCOMYCIN 1.5 GM/NS 500 ML 1.5 GM/500 ML BAG IV ONE (18:00)
[2017-06-06] MEDS: CEFEPIME 2 GM in SODIUM CHLORIDE 0.9% MINIBAG 100 ML IV SCH (19:58)
[2017-06-06] MEDS ORDERED: LIDOCAINE 1% 2 ML VIAL ONE (20:50)
--- NOTE | 2017-06-06 21:54 | PROCEDURE REPORT ---
Hospitalist Procedure Note - Procedure Note Procedure Note: NOTE: This is NOT a Hospitalist Procedure Note but rather a Surgical Procedure Note. After obtaining verbal and written consent for removal of the central line for culture and after evaluating the patient and the chest x-ray and making the determination that this was a Simpson catheter, the area was prepped and draped in the usual sterile manner and the skin overlying the cuff was injected with 2 mL of 1% lidocaine. When the patient's skin was insensate, I cut down on the cuff and with gentle traction and counter-traction as well as blunt and sharp dissection I was able to free the cuff from the surrounding tissue and remove the catheter in a sterile manner. I held pressure and the medial clavicular junction for 5 minutes with resulting excellent hemostasis. The tip was cut off with sterile scissors and sent for culture and sensitivity. The remaining catheter was removed and the patient tolerated it surprisingly well. The incision was approximated with 1/2 inch steristrips. A dressing was applied. I will check on the patient in the AM and follow up will likely only be on an as needed basis.
[2017-06-07] MEDS: PPN (CLINIMIX E 4.25/5) 2,000 ML with MULTIVITAMIN 10 ML IV SCH ×4 (00:32→18:42)
[2017-06-07] MEDS: FAT EMULSION 20% 250 ML IV SCH ×2 (00:32→18:42)
[2017-06-07] MEDS: TRACE ELEMENTS V CONC 1 ML in SODIUM CHLORIDE 0.9% 50 ML IV SCH ×2 (00:33→19:43)
[2017-06-07] MEDS: SODIUM CHLORIDE FLUSH 0.9% 10 ML SYRINGE IVP SCH ×3 (01:09→16:56)
[2017-06-07 05:34] LABS: BASOPHILS # (AUTO) 0.1 10^3/uL (0.0-0.1); BASOPHILS % (AUTO) 0.9 %; EOSINOPHILS # (AUTO) 0.1 10^3/uL (0.0-0.7); EOSINOPHILS % (AUTO) 1.1 %; HGB - HEMOGLOBIN 10.4 g/dL (12.0-16.0); LYMPHOCYTES # (AUTO) 0.7 10^3/uL (1.5-3.5); MEAN CORPUSCULAR HGB CONC 32.2 g/dL (32.0-36.0); MEAN CORPUSCULAR VOLUME 80.5 fL (81.0-99.0); MONOCYTES % (AUTO) 10.6 %; NEUTROPHILS # (AUTO) 7.8 10^3/uL (1.5-6.6); NEUTROPHILS % (AUTO) 80.4 %; PLT - PLATELET COUNT 496 10^3/uL (130-450); RED BLOOD COUNT 4.02 10^6/uL (4.20-5.40); RED CELL DISTRIBUTION WIDTH 17.2 % (12.0-15.0); WHITE BLOOD COUNT 9.7 x10^3/uL (4.8-10.8)
[2017-06-07 05:54] LABS: ALBUMIN 2.5 g/dL (3.2-5.5); ALBUMIN/GLOBULIN RATIO 0.7 (1.0-2.2); BILIRUBIN,TOTAL 0.5 mg/dL (0.2-1.0); CALCIUM 8.1 mg/dL (8.5-10.3); CREATININE 0.9 mg/dL (0.4-1.0); MAGNESIUM 1.6 mg/dL (1.7-2.8); PHOSPHORUS 3.3 mg/dL (2.5-4.6); TOTAL PROTEIN 6.3 g/dL (6.7-8.2)
[2017-06-07] MEDS: LEVOTHYROXINE 112 MCG TABLET PO SCH (06:04)
[2017-06-07] MEDS: oxyCODONE 5 MG TABLET PO PRN ×3 (06:04→18:37)
[2017-06-07] MEDS: SODIUM CHLORIDE FLUSH 0.9% 10 ML SYRINGE IVP PRN (06:04)
[2017-06-07] MEDS: D5.45NS W/20 MEQ KCL 1,000 ML IV SCH (09:31)
[2017-06-07] MEDS: ESCITALOPRAM 10 MG TABLET PO SCH (10:17)
[2017-06-07] MEDS: CEFEPIME 2 GM in SODIUM CHLORIDE 0.9% MINIBAG 100 ML IV SCH ×2 (10:17→21:20)
[2017-06-07] MEDS: POTASSIUM CHLORIDE 20 MEQ TABLET PO SCH (10:18)
[2017-06-07] MEDS: BUMETANIDE 1 MG TABLET PO SCH (10:21)
[2017-06-07] MEDS: POLYETHYLENE GLYCOL 3350 17 GM PACKET PO SCH (10:24)
--- NOTE | 2017-06-07 11:33 | PROVIDER PROGRESS NOTE ---
Subjective - General Admit Date: 06/06/17 Procedure Date: 06/06/17 Post Op Days: 1 Procedure Performed: Removal Simpson for suspected infection - bacteremia with G +C - Review of Systems Wound/Incisions: positive: Dressing dry and intact General: positive: No symptoms HEENT: positive: No symptoms Pulmonary: positive: No symptoms Cardiovascular: positive: No symptoms Gastrointestinal: positive: No symptoms Genitourinary: positive: No symptoms Musculoskeletal: positive: No symptoms Skin: positive: No symptoms All Other Systems: positive: Reviewed and negative Objective - Patient Data Reviewed Vital Signs: Yes Vital Signs: Vital Signs x48h Temp Pulse Resp BP Pulse Ox 06/07/17 08:24 36.7 C 96 18 112/60 94 Weight: Weight 06/05/17 06/06/17 06/07/17 23:59 23:59 23:59 Weight (kg) 71.5 kg 74 kg Intake & Output: Intake and Output Totals x24h 06/05/17 06/06/17 06/07/17 23:59 23:59 23:59 Intake Total 2081.667 1947.667 Output Total 1775 1400 Balance 306.667 547.667 - Lab Results Lab Results: 06/07/17 05:15 06/07/17 05:15 Other Lab Results: Lab Results x24hrs 06/07/17 06/07/17 Range/Units 05:15 05:15 WBC 9.7 (4.8-10.8) x10^3/uL RBC 4.02 L (4.20-5.40) 10^6/uL Hgb 10.4 L (12.0-16.0) g/dL Hct 32.4 L (37.0-47.0) % MCV 80.5 L (81.0-99.0) fL MCH 26.0 L (27.0-31.0) pg MCHC 32.2 (32.0-36.0) g/dL RDW 17.2 H (12.0-15.0) % Plt Count 496 H (130-450) 10^3/uL MPV 7.0 L (7.9-10.8) fL Neut # 7.8 H (1.5-6.6) 10^3/uL Lymph # 0.7 L (1.5-3.5) 10^3/uL [place] # 1.0 (0.0-1.0) 10^3/uL Eos # 0.1 (0.0-0.7) 10^3/uL Baso # 0.1 (0.0-0.1) 10^3/uL Absolute Nucleated RBC 0.00 x10^3/uL Nucleated RBC % 0.0 /100WBC Sodium 133 L (135-145) mmol/L Potassium 3.2 L (3.5-5.0) mmol/L Chloride 98 L (101-111) mmol/L Carbon Dioxide 24 (21-32) mmol/L Anion Gap 11.0 (6-13) BUN 20 (6-20) mg/dL Creatinine 0.9 (0.4-1.0) mg/dL Estimated GFR (MDRD) 61 L (>89) Glucose 144 H (70-100) mg/dL Calcium 8.1 L (8.5-10.3) mg/dL Phosphorus 3.3 (2.5-4.6) mg/dL Magnesium 1.6 L (1.7-2.8) mg/dL Iron 9 L (28-170) ug/dL TIBC 209 L (250-450) ug/dL % Saturation 4 L (20-50) % Transferrin 149 L (192-382) mg/dL Total Bilirubin 0.5 (0.2-1.0) mg/dL AST 23 (10-42) IU/L ALT 23 (10-60) IU/L Alkaline Phosphatase 174 H (42-121) IU/L Total Protein 6.3 L (6.7-8.2) g/dL Albumin 2.5 L (3.2-5.5) g/dL Globulin 3.8 (2.1-4.2) g/dL Albumin/Globulin Ratio 0.7 L (1.0-2.2) Triglycerides 151 H ( - 149) mg/dL - Current Medications Current Medications: Current Medications Generic Name Dose Route Start Last Admin Trade Name Freq PRN Reason Stop Dose Admin Bumetanide 2 mg 06/06/17 09:00 06/07/17 10:21 Bumex PO 2 mg DAILY NICHO Administration Escitalopram Oxalate 20 mg 06/06/17 09:00 06/07/17 10:17 Lexapro PO 20 mg DAILY NICHO Administration Potassium Chloride/Dextrose/Sod Cl 1,000 mls @ 100 mls/hr 06/05/17 20:00 05/26 09:31 D5.45ns W/20 Meq Kcl IV 100 mls/hr .Q10H NICHO Administration Cefepime HCl 2 gm/ Sodium 100 mls @ 200 mls/hr 06/06/17 17:00 06/07/17 11:11 Chloride IV Infused BID NICHO Infusion Multivitamins 10 ml/ Amino 2,010 mls @ 83 mls/hr 06/06/17 19:00 06/07/17 00: 32 Acids/Electrolytes/Dextrose IV 83 mls/hr Q24H NICHO Administration Protocol Fat Emulsion Intravenous 250 mls @ 21 mls/hr 06/06/17 19:00 06/07/17 00:32 Intralipid 20% IV 21 mls/hr Q24H NICHO Administration Chromium/Copper/Manganese/ 51 mls @ 5 mls/hr 06/06/17 19:00 06/07/17 09:31 Seleni/Zn 1 ml/ Sodium IV Infused Chloride Q24H NICHO Infusion Levothyroxine Sodium 112 mcg 06/06/17 07:00 06/07/17 06:04 Synthroid PO 112 mcg QDAC NICHO Administration Oxycodone HCl 5 mg 06/05/17 19:40 06/07/17 10:17 Roxicodone PO 5 mg Q4HR PRN Administration Pain 5 to 7 Polyethylene Glycol 17 gm 06/06/17 09:00 06/07/17 10:24 Miralax PO Not Given DAILY NICHO Potassium Chloride 20 meq 06/06/17 08:00 06/07/17 10:18 K-Dur PO 20 meq DAILYWM NICHO Administration Prochlorperazine Edisylate 10 mg 06/05/17 19:40 06/06/17 15:48 Compazine Inj IVP 10 mg Q6HR PRN Administration Nausea / Vomiting Sodium Chloride 10 ml 06/05/17 19:40 06/07/17 06:04 Normal Saline Flush 0.9% IVP 10 ml PRN PRN Administration NEEDED PER PROVIDER ORDERS Sodium Chloride 10 ml 06/06/17 01:00 06/07/17 10:24 Normal Saline Flush 0.9% IVP Not Given 0100,0900,1700 [facility] - Physical Exam Wound/Incisions: positive: Dressing dry and intact General Appearance: positive: No acute distress Eyes Bilateral: positive: No lid inflammation, Conjunctivae nml, No scleral icterus Neck: positive: Trachea midline Neurologic/Psychiatric: positive: Oriented x3 Impression/Plan - Problem List Problem List: D1 s/p removal Simpson and culture of tip for bacteremia with Gram + cocci. Treatment (for suspected Staph) is 4 weeks of antibiotics. I would not place a permanent or semipermanent IV catheter in prior to completion of therapy. Recommend ECHO to look for seeding or vegetations. On the good side patient's WBC has normalized and she is afebrile without signs of sepsis. Have patient follow up with me in the office upon her discharge. To be complete when was her last workup of her bowel? In short how much functional bowel does she have? Where exactly are her fistulae? A determination of this could then plan for enteric feeding (possibly).... This could be started here in this hospital with radiographic studies and then a nutrition consult or it can be done outpatient or at another institution. Will sign off her care for now call me if there are further surgical questions or concerns.
[2017-06-07] MEDS ORDERED: IRON SUCROSE 200 MG in SODIUM CHLORIDE 0.9% 100ML 100 ML IV ONE (12:00)
[2017-06-07] MEDS ORDERED: ONDANSETRON 4 MG/2 ML VIAL IVP PRN (12:18)
--- NOTE | 2017-06-07 12:32 | PROVIDER PROGRESS NOTE ---
Subjective - Prog Note Date Prog Note Date: 06/07/17 Prog Note Time: 12:31 - Subjective Pt reports feeling: No change Subjective: Namrata complains about her prolonged stay in the hospital. She denies increased cough, N/V or worsening SOB. She continues to have poor appetite. Current Medications - Current Medications Current Medications: Active Medications Bumetanide (Bumex) 2 mg PO DAILY [facility] Last Admin: 06/07/17 10:21 Dose: 2 mg Escitalopram Oxalate (Lexapro) 20 mg PO DAILY [facility] Last Admin: 06/07/17 10:17 Dose: 20 mg Potassium Chloride/Dextrose/Sod Cl (D5.45ns W/20 Meq Kcl) 1,000 mls @ 100 mls/ hr IV .Q10H [facility] Last Admin: 06/07/17 09:31 Dose: 100 mls/hr Cefepime HCl 2 gm/ Sodium (Chloride) 100 mls @ 200 mls/hr IV BID [facility] Last Infusion: 06/07/17 11:11 Dose: Infused Vancomycin HCl 1 gm/ Sodium (Chloride) 250 mls @ 167 mls/hr IV Q24H [facility] Last Admin: 06/07/17 16:56 Dose: 167 mls/hr Multivitamins 10 ml/ Amino (Acids/Electrolytes/Dextrose) 2,010 mls @ 83 mls/hr IV Q24H [facility] PRN Reason: Protocol Last Admin: 06/07/17 00:32 Dose: 83 mls/hr Fat Emulsion Intravenous (Intralipid 20%) 250 mls @ 21 mls/hr IV Q24H [facility] Last Infusion: 06/07/17 14:55 Dose: Infused Chromium/Copper/Manganese/Seleni/Zn 1 ml/ Sodium Chloride 51 mls @ 5 mls/hr IV Q24H [facility] Last Infusion: 06/07/17 09:31 Dose: Infused Levothyroxine Sodium (Synthroid) 112 mcg PO QDAC [facility] Last Admin: 06/07/17 06:04 Dose: 112 mcg Ondansetron HCl (Zofran Inj) 4 mg IVP Q4HR PRN PRN Reason: Nausea / Vomiting Last Admin: 06/07/17 12:29 Dose: 4 mg Oxycodone HCl (Roxicodone) 5 mg PO Q4HR PRN PRN Reason: Pain 5 to 7 Last Admin: 06/07/17 10:17 Dose: 5 mg Polyethylene Glycol (Miralax) 17 gm PO DAILY [facility] Last Admin: 06/07/17 10:24 Dose: Not Given Potassium Chloride (K-Dur) 20 meq PO DAILYWM [facility] Last Admin: 06/07/17 10:18 Dose: 20 meq Prochlorperazine Edisylate (Compazine Inj) 10 mg IVP Q6HR PRN PRN Reason: Nausea / Vomiting Last Admin: 06/06/17 15:48 Dose: 10 mg Sodium Chloride (Normal Saline Flush 0.9%) 10 ml IVP PRN PRN PRN Reason: NEEDED PER PROVIDER ORDERS Last Admin: 06/07/17 06:04 Dose: 10 ml Sodium Chloride (Normal Saline Flush 0.9%) 10 ml IVP 0100,0900,1700 [facility] Last Admin: 06/07/17 16:56 Dose: Not Given Temazepam (Restoril) 15 mg PO QPM PRN PRN Reason: Insomnia Bumetanide [Bumetanide] 4 mg PO DAILY 06/05/17 Escitalopram Oxalate [Lexapro] 20 mg PO DAILY 06/05/17 Levothyroxine Sodium [Synthroid] 112 mcg PO QDAC 06/05/17 Multivitamin [Multiple Vitamins] 1 tab DAILY 06/05/17 Potassium Chloride 20 meq PO DAILYWM 06/05/17 oxyCODONE [Roxicodone] 5 mg PO Q6H PRN 06/05/17 Objective - Vital Signs/Intake & Output Reviewed Vital Signs: Yes Vital Signs: Vital Signs x48h Temp Pulse Resp BP Pulse Ox 06/07/17 08:24 36.7 C 96 18 112/60 94 Intake & Output: Intake & Output 06/04/17 06/05/17 06/06/17 06/07/17 23:59 23:59 23:59 23:59 Intake Total 2081.667 1947.667 Output Total 1775 1400 Balance 306.667 547.667 - Objective General Appearance: positive: No acute distress, Alert, Anxious Eyes Bilateral: positive: Normal inspection, PERRL Eyes: OU Conjunctivae pale ENT: positive: ENT inspection nml, Pharynx nml, Dry mucous membranes Neck: positive: Nml inspection, Thyroid nml, Stiff neck Respiratory: positive: Chest non-tender, No respiratory distress Cardiovascular: positive: Regular rate & rhythm, No gallop, Systolic murmur, Decreased pulse(s) Peripheral Pulses: 1+ Radial (R), 1+ Radial (L) Abdomen: positive: No organomegaly, Tenderness Back: positive: Nml inspection Skin: positive: No rash, Warm, Dry, Pallor Extremities: positive: Non-tender, Full ROM Neurologic/Psychiatric: positive: Oriented x3, CN's nml (2-12), Motor nml, Sensation nml, Weakness, Depressed mood/affect Reflexes: Bicep (R): 2+, Bicep (L): 2+ - Lab Results Fish Bones: 06/07/17 05:15 06/07/17 05:15 Other Labs: Lab Results x24hrs 06/07/17 06/07/17 Range/Units 05:15 05:15 WBC 9.7 (4.8-10.8) x10^3/uL RBC 4.02 L (4.20-5.40) 10^6/uL Hgb 10.4 L (12.0-16.0) g/dL Hct 32.4 L (37.0-47.0) % MCV 80.5 L (81.0-99.0) fL MCH 26.0 L (27.0-31.0) pg MCHC 32.2 (32.0-36.0) g/dL RDW 17.2 H (12.0-15.0) % Plt Count 496 H (130-450) 10^3/uL MPV 7.0 L (7.9-10.8) fL Neut # 7.8 H (1.5-6.6) 10^3/uL Lymph # 0.7 L (1.5-3.5) 10^3/uL [place] # 1.0 (0.0-1.0) 10^3/uL Eos # 0.1 (0.0-0.7) 10^3/uL Baso # 0.1 (0.0-0.1) 10^3/uL Absolute Nucleated RBC 0.00 x10^3/uL Nucleated RBC % 0.0 /100WBC Sodium 133 L (135-145) mmol/L Potassium 3.2 L (3.5-5.0) mmol/L Chloride 98 L (101-111) mmol/L Carbon Dioxide 24 (21-32) mmol/L Anion Gap 11.0 (6-13) BUN 20 (6-20) mg/dL Creatinine 0.9 (0.4-1.0) mg/dL Estimated GFR (MDRD) 61 L (>89) Glucose 144 H (70-100) mg/dL Calcium 8.1 L (8.5-10.3) mg/dL Phosphorus 3.3 (2.5-4.6) mg/dL Magnesium 1.6 L (1.7-2.8) mg/dL Iron 9 L (28-170) ug/dL TIBC 209 L (250-450) ug/dL % Saturation 4 L (20-50) % Transferrin 149 L (192-382) mg/dL Total Bilirubin 0.5 (0.2-1.0) mg/dL AST 23 (10-42) IU/L ALT 23 (10-60) IU/L Alkaline Phosphatase 174 H (42-121) IU/L Total Protein 6.3 L (6.7-8.2) g/dL Albumin 2.5 L (3.2-5.5) g/dL Globulin 3.8 (2.1-4.2) g/dL Albumin/Globulin Ratio 0.7 L (1.0-2.2) Triglycerides 151 H ( - 149) mg/dL - Diagnostic Imaging Diagnostic Imaging Results: positive: Final report reviewed Assessment/Plan - Problem List (1) Cellulitis and abscess of trunk Impression: Patient's right upper chest port was removed by general surgery, Dr. Leung last evening. Plan: Culture tip-pending, and continue IV antibiotics. (2) CHF (congestive heart failure) Impression: Patient has a history of this and takes oral Bumex at home. Plan: Continue meds and monitor fluid status. (3) Anxiety and depression Impression: Patient has increased anxiety surrounding her hospital stay and her notes that she has been in the hospital over 90 days in the past year. Plan: Determine placement of tubes; ostomy and work on infusion clinic capabilities. (4) Hypothyroid Impression: Synthroid is prescribed at 112mcg PO for out patient use. Plan: Continue same dose and check a TSH. (5) Altered bowel elimination due to intestinal ostomy Impression: Records obtained via [facility]; Discharge summary from [facility] from 06/20/15-06/24/15 on Procedures performed including cystoplasty and very difficult pelvic adhesiolysis was performed in which they could not get to the base of neobladder with enterotomy closure x4. Postoperatively, she had a RONAK drain in place (then removed on post op day #2) and a 20-Urdu cystostomy tube into the neobladder. On 06/21 and 06/22 a KUB was performed and showed a probable postoperative ileus, which resolved on the day of discharge.
[2017-06-07] MEDS: MAGNESIUM SULFATE 2 GRAM 2 GM/50 ML BAG IV SCH ×2 (12:48→14:00)
[2017-06-07] MEDS: POTASSIUM CHLOR 10 MEQ/100 ML 10 MEQ/100 ML BAG IV SCH ×4 (16:56→21:26)
[2017-06-07] MEDS ORDERED: VANCOMYCIN INJ 1 GM in SODIUM CHLORIDE 0.9% 250 ML IV SCH (17:00)
[2017-06-07] MEDS ORDERED: POTASSIUM CHLOR 10 MEQ/100 ML 10 MEQ/100 ML BAG IV ONE (21:27)
[2017-06-08] MEDS: D5.45NS W/20 MEQ KCL 1,000 ML IV SCH ×3 (00:34→20:58)
[2017-06-08] MEDS: SODIUM CHLORIDE FLUSH 0.9% 10 ML SYRINGE IVP SCH ×3 (04:51→16:20)
[2017-06-08] MEDS: LEVOTHYROXINE 112 MCG TABLET PO SCH (06:51)
[2017-06-08] MEDS: POTASSIUM CHLORIDE 20 MEQ TABLET PO SCH (09:52)
[2017-06-08] MEDS: CEFEPIME 2 GM in SODIUM CHLORIDE 0.9% MINIBAG 100 ML IV SCH (09:52)
[2017-06-08] MEDS: BUMETANIDE 1 MG TABLET PO SCH (09:52)
[2017-06-08] MEDS: ESCITALOPRAM 10 MG TABLET PO SCH (09:53)
[2017-06-08] MEDS: POLYETHYLENE GLYCOL 3350 17 GM PACKET PO SCH (09:53)
[2017-06-08] MEDS ORDERED: SODIUM CHLORIDE 0.9% IV SCH (15:00)
[2017-06-08] MEDS ORDERED: GENTAMICIN PER PHARMACY IV SCH (15:00)
[2017-06-08] MEDS: FAT EMULSION 20% 250 ML IV SCH (18:36)
[2017-06-08] MEDS: PPN (CLINIMIX E 4.25/5) 2,000 ML with MULTIVITAMIN 10 ML IV SCH ×2 (18:36)
[2017-06-08] MEDS: TRACE ELEMENTS V CONC 1 ML in SODIUM CHLORIDE 0.9% 50 ML IV SCH (18:37)
--- NOTE | 2017-06-08 19:26 | PROVIDER PROGRESS NOTE ---
Subjective - Prog Note Date Prog Note Date: 06/08/17 Prog Note Time: 08:00 - Subjective Pt reports feeling: No change Subjective: Chloé was tearful about going to SNF. She said "she cannot go because she has a fear of dying in a place like that". was called and updated from her room. She denies SOB, chest pain, N/V or a new cough. Current Medications - Current Medications Current Medications: Active Medications Bumetanide (Bumex) 2 mg PO DAILY [facility] Last Admin: 06/08/17 09:52 Dose: 2 mg Escitalopram Oxalate (Lexapro) 20 mg PO DAILY [facility] Last Admin: 06/08/17 09:53 Dose: 20 mg Multivitamins 10 ml/ Amino (Acids/Electrolytes/Dextrose) 2,010 mls @ 83 mls/hr IV Q24H [facility] PRN Reason: Protocol Last Admin: 06/08/17 18:36 Dose: 83 mls/hr Fat Emulsion Intravenous (Intralipid 20%) 250 mls @ 21 mls/hr IV Q24H [facility] Last Admin: 06/08/17 18:36 Dose: 21 mls/hr Chromium/Copper/Manganese/Seleni/Zn 1 ml/ Sodium Chloride 51 mls @ 5 mls/hr IV Q24H [facility] Last Admin: 06/08/17 18:37 Dose: 5 mls/hr Potassium Chloride/Dextrose/Sod Cl (D5.45ns W/20 Meq Kcl) 1,000 mls @ 50 mls/ hr IV .Q20H [facility] Levothyroxine Sodium (Synthroid) 112 mcg PO QDAC [facility] Last Admin: 06/08/17 06:51 Dose: 112 mcg Linezolid (Zyvox) 600 mg PO BID [facility] Stop: 06/22/17 21:00 Moxifloxacin HCl (Avelox) 400 mg PO BID [facility] Stop: 06/22/17 21:00 Ondansetron HCl (Zofran Inj) 4 mg IVP Q4HR PRN PRN Reason: Nausea / Vomiting Last Admin: 06/07/17 12:29 Dose: 4 mg Oxycodone HCl (Roxicodone) 5 mg PO Q4HR PRN PRN Reason: Pain 5 to 7 Last Admin: 06/07/17 18:37 Dose: 5 mg Polyethylene Glycol (Miralax) 17 gm PO DAILY [facility] Last Admin: 06/08/17 09:53 Dose: Not Given Potassium Chloride (K-Dur) 20 meq PO DAILYWM [facility] Last Admin: 06/08/17 09:52 Dose: 20 meq Prochlorperazine Edisylate (Compazine Inj) 10 mg IVP Q6HR PRN PRN Reason: Nausea / Vomiting Last Admin: 06/06/17 15:48 Dose: 10 mg Sodium Chloride (Normal Saline Flush 0.9%) 10 ml IVP PRN PRN PRN Reason: NEEDED PER PROVIDER ORDERS Last Admin: 06/07/17 06:04 Dose: 10 ml Sodium Chloride (Normal Saline Flush 0.9%) 10 ml IVP 0100,0900,1700 [facility] Last Admin: 06/08/17 16:20 Dose: Not Given Temazepam (Restoril) 15 mg PO QPM PRN PRN Reason: Insomnia Bumetanide [Bumetanide] 4 mg PO DAILY 06/05/17 Escitalopram Oxalate [Lexapro] 20 mg PO DAILY 06/05/17 Levothyroxine Sodium [Synthroid] 112 mcg PO QDAC 06/05/17 RX: Multivitamin [Multiple Vitamins] 1 tab DAILY 06/05/17 RX: Potassium Chloride 20 meq PO DAILYWM 06/05/17 RX: oxyCODONE [Roxicodone] 5 mg PO Q6H PRN 06/05/17 Objective - Vital Signs/Intake & Output Reviewed Vital Signs: Yes Vital Signs: Vital Signs x48h Temp Pulse Resp BP Pulse Ox 06/08/17 15:45 36.8 C 94 20 102/58 L 95 Intake & Output: Intake & Output 06/05/17 06/06/17 06/07/17 06/08/17 23:59 23:59 23:59 23:59 Intake Total 2081.667 5915.500 4284.7 Output Total 1775 4400 2850 Balance 239.595 2871.500 1434.7 - Objective General Appearance: positive: Alert, Moderate distress, Anxious Eyes Bilateral: positive: Normal inspection ENT: positive: ENT inspection nml, Pharynx nml, Dry mucous membranes Neck: positive: Nml inspection, Thyroid nml, No JVD Respiratory: positive: Chest non-tender, No respiratory distress, Wheezes, Rhonchi Cardiovascular: positive: Regular rate & rhythm, No gallop, Systolic murmur, Decreased pulse(s) Peripheral Pulses: 1+ Radial (R), 1+ Radial (L) Abdomen: positive: Tenderness, Abnml bowel sounds, Other (ostomy, 2 borden devices.) Back: positive: Nml inspection Skin: positive: No rash, Warm, Dry Extremities: positive: Non-tender, Pedal edema, Joint swelling Neurologic/Psychiatric: positive: Oriented x3, CN's nml (2-12), Motor nml, Sensation nml, Depressed mood/affect Reflexes: Bicep (R): 2+, Bicep (L): 2+ - Lab Results Fish Bones: 06/07/17 05:15 06/07/17 05:15 Other Labs: Lab Results x24hrs 06/08/17 06/08/17 Range/Units 04:43 04:43 B-Natriuretic Peptide 61 (5-100) pg/mL TSH 1.58 (0.34-5.60) uIU/mL - Diagnostic Imaging Diagnostic Imaging Results: positive: Final report reviewed Assessment/Plan - Problem List (1) Cellulitis and abscess of trunk Impression: Patient's right upper chest port was removed by general surgery, Dr. Leung shortly after admission. Plan: Culture central line tip, which has been NGTD, and STOP IV antibiotics as per patient request to refuse SNF for further IV antibiotics. Start Moxifloxacin PO and linezolid PO for 14 days with probiotics. (2) CHF (congestive heart failure) Impression: Patient has a history of this and takes oral Bumex at home. Plan: Continue meds and monitor fluid status. Qualifiers: Congestive heart failure type: combined Congestive heart failure chronicity : acute on chronic Qualified Code(s): I50.43 - Acute on chronic combined systolic (congestive) and diastolic (congestive) heart failure (3) Anxiety and depression Impression: Patient has increased anxiety surrounding her hospital stay and her notes that she has been in the hospital over 90 days in the past year. Patient was presented with going to a SNF for the appropriate IV treatment of the + cultures. She immediately became tearful and stated that she just could not handle that. A phone call from her room to her was made to update him of the plans. Plan: Continue conversations about future plans and follow wishes to go home on oral antibiotics, and HOLD TPN/PPN for the next 14 days at home until a new central line can be placed. She should have 2 sets of negative blood cultures before a new line is placed. (5) Altered bowel elimination due to intestinal ostomy Impression: Records obtained via [facility]; Discharge summary from [facility] from 06/20/15-06/24/15 on Procedures performed including cystoplasty and very difficult pelvic adhesiolysis was performed in which they could not get to the base of neobladder with enterotomy closure x4. Postoperatively, she had a RONAK drain in place (then removed on post op day #2) and a 20-Tajik cystostomy tube into the neobladder. On 06/21 and 06/22 a KUB was performed and showed a probable postoperative ileus, which resolved on the day of discharge.
[2017-06-08] MEDS ORDERED: MOXIFLOXACIN 400 MG TABLET PO SCH (21:00)
[2017-06-08] MEDS: LINEZOLID 600 MG TABLET PO SCH (21:56)
[2017-06-09] MEDS: SODIUM CHLORIDE FLUSH 0.9% 10 ML SYRINGE IVP SCH ×3 (00:33→17:10)
[2017-06-09] MEDS ORDERED: WATER FOR INJECTION,STERILE 0 ML ONE (04:56)
[2017-06-09 05:11] LABS: ALBUMIN 2.3 g/dL (3.2-5.5); ALBUMIN/GLOBULIN RATIO 0.6 (1.0-2.2); BILIRUBIN,TOTAL 0.6 mg/dL (0.2-1.0); CALCIUM 8.2 mg/dL (8.5-10.3); CREATININE 0.9 mg/dL (0.4-1.0); PHOSPHORUS 3.9 mg/dL (2.5-4.6); TOTAL PROTEIN 6.4 g/dL (6.7-8.2)
[2017-06-09] MEDS: oxyCODONE 5 MG TABLET PO PRN ×3 (06:16→20:07)
[2017-06-09] MEDS: LEVOTHYROXINE 112 MCG TABLET PO SCH (06:16)
[2017-06-09] MEDS: LINEZOLID 600 MG TABLET PO SCH (08:47)
[2017-06-09] MEDS: BUMETANIDE 1 MG TABLET PO SCH (08:47)
[2017-06-09] MEDS: POTASSIUM CHLORIDE 20 MEQ TABLET PO SCH (08:47)
[2017-06-09] MEDS: ESCITALOPRAM 10 MG TABLET PO SCH (08:47)
[2017-06-09] MEDS: POLYETHYLENE GLYCOL 3350 17 GM PACKET PO SCH (08:48)
[2017-06-09] MEDS ORDERED: MOXIFLOXACIN 400 MG TABLET PO SCH (09:00)
--- NOTE | 2017-06-09 10:53 | PROVIDER PROGRESS NOTE ---
Subjective - Prog Note Date Prog Note Date: 06/09/17 Prog Note Time: 08:00 - Subjective Pt reports feeling: Improved Subjective: Patient sitting up in bed, no distress. She denies fever, chills, she has had some pain in the hands which she says is from the antibiotics (moxifloxcin?). She reports no N/V, normal loose output from ileostomy. She reports weakness from lack of mobility here, says she hasn't been out of bed, reports usually walks with walker. Current Medications - Current Medications Current Medications: Active Medications Bumetanide (Bumex) 2 mg PO DAILY [facility] Last Admin: 06/09/17 08:47 Dose: 2 mg Escitalopram Oxalate (Lexapro) 20 mg PO DAILY [facility] Last Admin: 06/09/17 08:47 Dose: 20 mg Multivitamins 10 ml/ Amino (Acids/Electrolytes/Dextrose) 2,010 mls @ 83 mls/hr IV Q24H [facility] PRN Reason: Protocol Last Admin: 06/08/17 18:36 Dose: 83 mls/hr Fat Emulsion Intravenous (Intralipid 20%) 250 mls @ 21 mls/hr IV Q24H [facility] Last Infusion: 06/09/17 06:52 Dose: Infused Chromium/Copper/Manganese/Seleni/Zn 1 ml/ Sodium Chloride 51 mls @ 5 mls/hr IV Q24H [facility] Last Infusion: 06/09/17 05:28 Dose: Infused Potassium Chloride/Dextrose/Sod Cl (D5.45ns W/20 Meq Kcl) 1,000 mls @ 50 mls/ hr IV .Q20H [facility] Last Admin: 06/08/17 20:58 Dose: 50 mls/hr Cefepime HCl 2 gm/ Sodium (Chloride) 100 mls @ 200 mls/hr IV Q12H [facility] Last Infusion: 06/09/17 11:36 Dose: Infused Vancomycin HCl 1 gm/ Sodium (Chloride) 250 mls @ 167 mls/hr IV Q12H [facility] Last Infusion: 06/09/17 13:15 Dose: Infused Levothyroxine Sodium (Synthroid) 112 mcg PO QDAC [facility] Last Admin: 06/09/17 06:16 Dose: 112 mcg Ondansetron HCl (Zofran Inj) 4 mg IVP Q4HR PRN PRN Reason: Nausea / Vomiting Last Admin: 06/07/17 12:29 Dose: 4 mg Oxycodone HCl (Roxicodone) 5 mg PO Q4HR PRN PRN Reason: Pain 5 to 7 Last Admin: 06/09/17 06:16 Dose: 5 mg Polyethylene Glycol (Miralax) 17 gm PO DAILY [facility] Last Admin: 06/09/17 08:48 Dose: Not Given Potassium Chloride (K-Dur) 20 meq PO DAILYWM [facility] Last Admin: 06/09/17 08:47 Dose: 20 meq Prochlorperazine Edisylate (Compazine Inj) 10 mg IVP Q6HR PRN PRN Reason: Nausea / Vomiting Last Admin: 06/06/17 15:48 Dose: 10 mg Sodium Chloride (Normal Saline Flush 0.9%) 10 ml IVP PRN PRN PRN Reason: NEEDED PER PROVIDER ORDERS Last Admin: 06/07/17 06:04 Dose: 10 ml Sodium Chloride (Normal Saline Flush 0.9%) 10 ml IVP 0100,0900,1700 [facility] Last Admin: 06/09/17 08:48 Dose: Not Given Temazepam (Restoril) 15 mg PO QPM PRN PRN Reason: Insomnia HOME MEDS: Bumetanide [Bumetanide] 4 mg PO DAILY 06/05/17 Escitalopram Oxalate [Lexapro] 20 mg PO DAILY 06/05/17 Levothyroxine Sodium [Synthroid] 112 mcg PO QDAC 06/05/17 Multivitamin [Multiple Vitamins] 1 tab DAILY 06/05/17 Potassium Chloride 20 meq PO DAILYWM 06/05/17 oxyCODONE [Roxicodone] 5 mg PO Q6H PRN 06/05/17 Objective - Vital Signs/Intake & Output Reviewed Vital Signs: Yes Vital Signs: Vital Signs x48h Temp Pulse Resp BP Pulse Ox 06/09/17 09:10 37.0 C 88 18 113/62 99 Intake & Output: Intake & Output 06/06/17 06/07/17 06/08/17 06/09/17 23:59 23:59 23:59 23:59 Intake Total 2081.667 5915.500 5884.7 501 Output Total 1775 4400 4450 1000 Balance 514.617 8795.500 1434.7 -499 - Objective General Appearance: positive: No acute distress Eyes Bilateral: positive: Normal inspection ENT: positive: No signs of dehydration Neck: positive: No JVD Respiratory: positive: Chest non-tender, No respiratory distress, Breath sounds nml Cardiovascular: positive: Regular rate & rhythm Peripheral Pulses: 1+ Dorsalis pedis (R), 1+ Dorsalis pedis (L), 2+ Radial (R), 2+ Radial (L) Abdomen: positive: Non-tender, Nml bowel sounds, No distention, Other ( ileostomy with liquid brown output) Rectal: positive: Other (urostomy tube and neobladder catheter to gravity borden bag) Skin: positive: Color nml, Warm, Dry Extremities: positive: Non-tender, Full ROM, Nml appearance. negative: Pedal edema Neurologic/Psychiatric: positive: Oriented x3, Motor nml, Sensation nml, Mood/ affect nml - Lab Results Fish Bones: 06/07/17 05:15 06/09/17 04:39 Other Labs: Lab Results x24hrs 06/09/17 Range/Units 04:39 Sodium 131 L (135-145) mmol/L Potassium 3.4 L (3.5-5.0) mmol/L Chloride 96 L (101-111) mmol/L Carbon Dioxide 24 (21-32) mmol/L Anion Gap 11.0 (6-13) BUN 28 H (6-20) mg/dL Creatinine 0.9 (0.4-1.0) mg/dL Estimated GFR (MDRD) 61 L (>89) Glucose 139 H (70-100) mg/dL Calcium 8.2 L (8.5-10.3) mg/dL Phosphorus 3.9 (2.5-4.6) mg/dL Magnesium 2.0 (1.7-2.8) mg/dL Total Bilirubin 0.6 (0.2-1.0) mg/dL AST 42 (10-42) IU/L ALT 42 (10-60) IU/L Alkaline Phosphatase 182 H (42-121) IU/L Total Protein 6.4 L (6.7-8.2) g/dL Albumin 2.3 L (3.2-5.5) g/dL Globulin 4.1 (2.1-4.2) g/dL Albumin/Globulin Ratio 0.6 L (1.0-2.2) Prealbumin 10 L (18-45) mg/dL Triglycerides 98 ( - 149) mg/dL Assessment/Plan - Problem List (1) Bacteremia associated with IV line Impression: P/W right chest wall cellulitis at site of barrett catheter., WBC 13k. BCx2 obtained, line cx x2 + Methicillin Resistant Staph Epi. Patient had coverage with vancomycin 06/06-06/08, then stopped 06/09 because patient did not want to go to SNF to complete antibiotics. I discussed case with CAT Caldwell at [facility]. Would reccomend 1 week IV coverage, PO will not provide adequate coverage. -Repeat BC today, if negative then it will be safe to replace line (PICC) -D/w patient and her , she is agreeable to complete antibiotics at home, this will be out of pocket cost but she is willing to accept that in place of going to SNF -Resume vanco per pharmacy dosing Qualifiers: Encounter type: initial encounter Qualified Code(s): T82.7XXA - Infection and inflammatory reaction due to other cardiac and vascular devices, implants and grafts, initial encounter; R78.81 - Bacteremia; R78.81 - Bacteremia (2) UTI (urinary tract infection) due to urinary indwelling catheter Impression: S/P cystectomy with neobladder and has [address], 1 created more recently for self-catheterization, the other (larger one) should be removed in a few weeks. Urine cx + psuedomonas aeruginosa, she denies hx of same. Covered by cefepime from 06/06-06/08, stopped for same as above. -Resume cefepime 2g IV bid -Drains to gravity Qualifiers: Indwelling urinary catheter type: cystostomy catheter Encounter type: initial encounter Qualified Code(s): T83.510A - Infection and inflammatory reaction due to cystostomy catheter, initial encounter; N39.0 - Urinary tract infection, site not specified; N39.0 - Urinary tract infection, site not specified (3) Cellulitis Impression: P/W right chest cellulitos which occurred 2d [employer], thought to be chemical reaction to new antibiotic disc used during routine care. She did have a 3x2cm bullae superior to port which had green pus, Cx of pus had no growth. Cellulitis resolved with coverage as noted above. Qualifiers: Site of cellulitis: trunk Site of cellulitis of trunk: chest wall Qualified Code(s): L03.313 - Cellulitis of chest wall (4) Hypothyroid Impression: Due to thyroid cancer. 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 Has been on TPN qHS [id number] and "dwindles" when it is stopped per her . No CVC currently so has been on PPN. -Continue PPN ans resume qHS TPN once CVC reestablished -Dual lumen PICC preferred DC PLAN: Home with , [facility] to manage TPN and Vanco + Cefepime until .
[2017-06-09] MEDS ORDERED: CEFEPIME 2 GM in SODIUM CHLORIDE 0.9% MINIBAG 100 ML IV SCH (11:00)
[2017-06-09] MEDS ORDERED: VANCOMYCIN PER PHARMACY 100 GM in SODIUM CHLORIDE 0.9% 250 ML IV SCH (11:00)
[2017-06-09] MEDS: CEFEPIME 2 GM in SODIUM CHLORIDE 0.9% MINIBAG 100 ML IV SCH (11:06)
[2017-06-09] MEDS: VANCOMYCIN INJ 1 GM in SODIUM CHLORIDE 0.9% 250 ML IV SCH (11:43)
[2017-06-09] MEDS: PPN (CLINIMIX E 4.25/5) 2,000 ML with MULTIVITAMIN 10 ML IV SCH ×2 (18:27)
[2017-06-09] MEDS: D5.45NS W/20 MEQ KCL 1,000 ML IV SCH (18:27)
[2017-06-09] MEDS: FAT EMULSION 20% 250 ML IV SCH (18:28)
[2017-06-09] MEDS: TRACE ELEMENTS V CONC 1 ML in SODIUM CHLORIDE 0.9% 50 ML IV SCH (18:28)
[2017-06-10] MEDS: CEFEPIME 2 GM in SODIUM CHLORIDE 0.9% MINIBAG 100 ML IV SCH ×3 (00:02→22:06)
[2017-06-10] MEDS ORDERED: IBUPROFEN 600 MG TABLET PO PRN (00:15)
[2017-06-10] MEDS: oxyCODONE 5 MG TABLET PO PRN ×4 (00:31→22:06)
[2017-06-10] MEDS: VANCOMYCIN INJ 1 GM in SODIUM CHLORIDE 0.9% 250 ML IV SCH ×2 (01:06→12:27)
[2017-06-10] MEDS: SODIUM CHLORIDE FLUSH 0.9% 10 ML SYRINGE IVP SCH ×4 (01:08→22:14)
[2017-06-10] MEDS: LEVOTHYROXINE 112 MCG TABLET PO SCH (06:39)
[2017-06-10] MEDS ORDERED: ACETAMINOPHEN 325 MG TABLET PO PRN (07:33)
[2017-06-10] MEDS: BUMETANIDE 1 MG TABLET PO SCH (09:11)
[2017-06-10] MEDS: ESCITALOPRAM 10 MG TABLET PO SCH (09:11)
[2017-06-10] MEDS: POTASSIUM CHLORIDE 20 MEQ TABLET PO SCH (09:11)
[2017-06-10] MEDS: D5.45NS W/20 MEQ KCL 1,000 ML IV SCH (14:05)
[2017-06-10] MEDS ORDERED: IRON DEXTRAN 25 MG in SODIUM CHLORIDE 0.9% 50 ML IV SCH (14:30)
--- NOTE | 2017-06-10 14:59 | PROVIDER PROGRESS NOTE ---
Subjective - Prog Note Date Prog Note Date: 06/10/17 Prog Note Time: 08:45 - Subjective Pt reports feeling: Improved Subjective: Pateint sitting up in bed, ate 70% of breakfast. She reports pain from moxifloxacin is slowly improving, so bad she could only sit EOB yesterday. She reports otherwise feeling well and hoping to go home tomorrow. She denies fever , chills, no chest pain or SOB, no coughing/congestion. No abdominal pain. Current Medications - Current Medications Current Medications: Active Medications Acetaminophen (Tylenol) 650 mg PO Q4HR PRN PRN Reason: Pain or Fever > 38C (100.4F) Bumetanide (Bumex) 2 mg PO DAILY [facility] Last Admin: 06/10/17 09:11 Dose: 2 mg Escitalopram Oxalate (Lexapro) 20 mg PO DAILY [facility] Last Admin: 06/10/17 09:11 Dose: 20 mg Multivitamins 10 ml/ Amino (Acids/Electrolytes/Dextrose) 2,010 mls @ 83 mls/hr IV Q24H [facility] PRN Reason: Protocol Stop: 06/10/17 18:59 Last Admin: 06/09/17 18:27 Dose: 83 mls/hr Fat Emulsion Intravenous (Intralipid 20%) 250 mls @ 21 mls/hr IV Q24H [facility] Last Infusion: 06/10/17 06:25 Dose: Infused Chromium/Copper/Manganese/Seleni/Zn 1 ml/ Sodium Chloride 51 mls @ 5 mls/hr IV Q24H [facility] Last Infusion: 06/10/17 04:40 Dose: Infused Potassium Chloride/Dextrose/Sod Cl (D5.45ns W/20 Meq Kcl) 1,000 mls @ 50 mls/ hr IV .Q20H [facility] Last Admin: 06/10/17 14:05 Dose: Not Given Cefepime HCl 2 gm/ Sodium (Chloride) 100 mls @ 200 mls/hr IV Q12H [facility] Last Infusion: 06/10/17 11:32 Dose: Infused Vancomycin HCl 1 gm/ Sodium (Chloride) 250 mls @ 167 mls/hr IV Q12H [facility] Last Infusion: 06/10/17 13:57 Dose: Infused Multivitamins 10 ml/ Amino (Acids/Dextrose) 2,010 mls @ 83 mls/hr IV Q24H [facility] PRN Reason: Protocol Iron Dextran 200 mg/ Sodium (Chloride) 104 mls @ 208 mls/hr IV ONCE [facility] Stop: 06/10/17 16:30 Ibuprofen (Motrin) 600 mg PO Q6HR PRN PRN Reason: PAIN Last Admin: 06/10/17 01:08 Dose: 600 mg Levothyroxine Sodium (Synthroid) 112 mcg PO QDAC [facility] Last Admin: 06/10/17 06:39 Dose: 112 mcg Miconazole Nitrate (Remedy Antifungal) 1 applic TOP Q6HR [facility] Ondansetron HCl (Zofran Inj) 4 mg IVP Q4HR PRN PRN Reason: Nausea / Vomiting Last Admin: 06/07/17 12:29 Dose: 4 mg Oxycodone HCl (Roxicodone) 5 mg PO Q4HR PRN PRN Reason: Pain 5 to 7 Last Admin: 06/10/17 00:31 Dose: 5 mg Oxycodone HCl (Roxicodone) 10 mg PO Q4HR PRN PRN Reason: pain Last Admin: 06/10/17 12:33 Dose: 10 mg Potassium Chloride (K-Dur) 20 meq PO DAILYWM [facility] Last Admin: 06/10/17 09:11 Dose: 20 meq Prochlorperazine Edisylate (Compazine Inj) 10 mg IVP Q6HR PRN PRN Reason: Nausea / Vomiting Last Admin: 06/06/17 15:48 Dose: 10 mg Sodium Chloride (Normal Saline Flush 0.9%) 10 ml IVP PRN PRN PRN Reason: NEEDED PER PROVIDER ORDERS Last Admin: 06/07/17 06:04 Dose: 10 ml Sodium Chloride (Normal Saline Flush 0.9%) 10 ml IVP 0100,0900,1700 [facility] Last Admin: 06/10/17 09:11 Dose: Not Given Temazepam (Restoril) 15 mg PO QPM PRN PRN Reason: Insomnia HOME MEDS: Bumetanide [Bumetanide] 4 mg PO DAILY 06/05/17 Escitalopram Oxalate [Lexapro] 20 mg PO DAILY 06/05/17 Levothyroxine Sodium [Synthroid] 112 mcg PO QDAC 06/05/17 Multivitamin [Multiple Vitamins] 1 tab DAILY 06/05/17 Potassium Chloride 20 meq PO DAILYWM 06/05/17 oxyCODONE [Roxicodone] 5 mg PO Q6H PRN 06/05/17 Objective - Vital Signs/Intake & Output Reviewed Vital Signs: Yes Vital Signs: Vital Signs x48h Temp Pulse Pulse Pulse Resp BP BP 06/10/17 14:41 86 108/49 L 06/10/17 10:15 84 80 118/60 06/10/17 08:55 36.4 C L 79 20 103/50 L BP Pulse Ox 06/10/17 14:41 06/10/17 10:15 114/57 L 06/10/17 08:55 97 Intake & Output: Intake & Output 06/07/17 06/08/17 06/09/17 06/10/17 23:59 23:59 23:59 23:59 Intake Total 5915.500 5884.7 4870.55 1351.5 Output Total 4400 4450 3250 2850 Balance 9316.646 2344.7 1620.55 -1498.5 - Objective General Appearance: positive: No acute distress, Alert Eyes Bilateral: positive: Normal inspection, PERRL, EOMI ENT: positive: Pharynx nml, No signs of dehydration Neck: positive: No JVD Respiratory: positive: Chest non-tender, No respiratory distress, Breath sounds nml Cardiovascular: positive: Regular rate & rhythm Peripheral Pulses: 1+ Dorsalis pedis (R), 1+ Dorsalis pedis (L), 2+ Radial (R), 2+ Radial (L) Abdomen: positive: Non-tender, Nml bowel sounds, No distention, Other ( ileostomy with liquid brown output) Skin: positive: Color nml, No rash, Warm, Dry Extremities: positive: Non-tender, Full ROM, Nml appearance. negative: Pedal edema, Calf tenderness Neurologic/Psychiatric: positive: Oriented x3, Motor nml, Sensation nml, Mood/ affect nml - Lab Results Fish Bones: 06/07/17 05:15 06/09/17 04:39 Assessment/Plan - Problem List (1) Bacteremia associated with IV line Impression: P/W right chest wall cellulitis at site of barrett catheter. WBC 13k. BCx2 obtained, line cx x2 + Methicillin Resistant Staph Epi. Patient had coverage with vancomycin 06/06-06/08, then stopped 3/4 because patient did not want to go to SNF to complete antibiotics. I discussed case with CAT Caldwell at [facility]. Would recommend 1 week IV coverage, PO will not provide adequate coverage. Repeat BC 06/10. -If repeat BC negative then it will be safe to replace line (PICC) on 06/11 -D/w patient and her , she is agreeable to complete antibiotics at home, this will be out of pocket cost but she is willing to accept that in place of going to SNF -Continue vanco till 06/16, pharm dosing, trough tonight (2) UTI (urinary tract infection) due to urinary indwelling catheter Impression: S/P cystectomy with neobladder and has [address], 1 created more recently for self-catheterization, the other (larger one) will be removed in a few weeks. Urine cx + psuedomonas aeruginosa, she denies hx of same. Covered by cefepime from 06/06-06/08, stopped for same as above. -Cefepime 2g IV bid until 06/16 -Drains to gravity (3) Cellulitis Impression: P/W right chest cellulitis which occurred 2d [employer], thought to be chemical reaction to new antibiotic disc used during routine care. She did have a 3x2cm bullae superior to port which had green pus, Cx of pus had no growth. Cellulitis resolved with coverage as noted above. (4) Hypothyroid Impression: Due to thyroid cancer. Stable -Continue synthroid (5) Malnutrition Impression: Due to malabsorption from multiple GI surgeries and now ileostomy. Has been on TPN qHS [id number] and "dwindles" when it is stopped per her . No CVC currently so has been on PPN. -Continue PPN ans resume qHS TPN once CVC reestablished -Dual lumen PICC preferred (6) Iron deficinecy anemia Impression: Lack of absorption, iron studies very low. Given 200mg IV iron sucrose on 06/07. Based on iron studies and current H&H she needs ~1gr of IV iron. -Proceed with test dose 25mg then 175mg if no adverse reaction. -She will need additional 600mg IV infusion as oupatient, order will need to come for PCP for [facility] DC PLAN: Home with on 06/11, [facility] to manage TPN and Vanco BID + Cefepime BID until 06/16/17. Follow-up with [facility] weekly for labs and dressing change
[2017-06-10] MEDS ORDERED: IRON DEXTRAN 200 MG in SODIUM CHLORIDE 0.9% 100ML 100 ML IV SCH (15:30)
[2017-06-10] MEDS: MICONAZOLE CREAM 118 ML TUBE TOP SCH (22:06)
[2017-06-11] MEDS: FAT EMULSION 20% 250 ML IV SCH ×2 (00:47→19:34)
[2017-06-11] MEDS: TRACE ELEMENTS V CONC 1 ML in SODIUM CHLORIDE 0.9% 50 ML IV SCH ×2 (00:49→19:34)
[2017-06-11] MEDS: D5.45NS W/20 MEQ KCL 1,000 ML IV SCH (00:53)
[2017-06-11] MEDS: SODIUM CHLORIDE FLUSH 0.9% 10 ML SYRINGE IVP SCH ×4 (00:53→19:33)
[2017-06-11] MEDS: MICONAZOLE CREAM 118 ML TUBE TOP SCH ×4 (00:53→19:37)
[2017-06-11] MEDS: PPN IV SCH ×4 (02:45→19:34)
[2017-06-11] MEDS: MULTIVITAMIN IV SCH ×4 (02:45→19:34)
[2017-06-11] MEDS: VANCOMYCIN INJ 1 GM in SODIUM CHLORIDE 0.9% 250 ML IV SCH (02:47)
[2017-06-11 05:10] LABS: BASOPHILS # (AUTO) 0.1 10^3/uL (0.0-0.1); BASOPHILS % (AUTO) 1.3 %; EOSINOPHILS # (AUTO) 0.4 10^3/uL (0.0-0.7); HGB - HEMOGLOBIN 10.6 g/dL (12.0-16.0); LYMPHOCYTES # (AUTO) 0.7 10^3/uL (1.5-3.5); LYMPHOCYTES % (AUTO) 7.2 %; MEAN CORPUSCULAR HGB CONC 32.5 g/dL (32.0-36.0); MEAN PLATELET VOLUME 7.1 fL (7.9-10.8); MONOCYTES # (AUTO) 1.3 10^3/uL (0.0-1.0); MONOCYTES % (AUTO) 12.6 %; NEUTROPHILS # (AUTO) 7.8 10^3/uL (1.5-6.6); NEUTROPHILS % (AUTO) 74.9 %; PLT - PLATELET COUNT 446 10^3/uL (130-450); RED BLOOD COUNT 4.08 10^6/uL (4.20-5.40); WHITE BLOOD COUNT 10.4 x10^3/uL (4.8-10.8)
[2017-06-11 05:22] LABS: ALBUMIN 2.4 g/dL (3.2-5.5); ALBUMIN/GLOBULIN RATIO 0.5 (1.0-2.2); BILIRUBIN,TOTAL 0.6 mg/dL (0.2-1.0); CALCIUM 8.9 mg/dL (8.5-10.3); CREATININE 0.9 mg/dL (0.4-1.0); PHOSPHORUS 3.8 mg/dL (2.5-4.6); TOTAL PROTEIN 6.9 g/dL (6.7-8.2)
[2017-06-11] MEDS: LEVOTHYROXINE 112 MCG TABLET PO SCH (06:38)
[2017-06-11] MEDS: oxyCODONE 5 MG TABLET PO PRN ×2 (07:13→11:24)
[2017-06-11] MEDS ORDERED: POTASSIUM CHLOR 20 MEQ/100 ML 20 MEQ/100 ML BAG IV SCH (08:03)
[2017-06-11] MEDS: ESCITALOPRAM 10 MG TABLET PO SCH (08:47)
[2017-06-11] MEDS: POTASSIUM CHLORIDE 20 MEQ TABLET PO SCH (08:48)
[2017-06-11] MEDS: BUMETANIDE 1 MG TABLET PO SCH (08:48)
[2017-06-11] MEDS ORDERED: POTASSIUM CHLOR 10 MEQ/100 ML 10 MEQ/100 ML BAG IV SCH (09:00)
[2017-06-11] MEDS ORDERED: POTASSIUM CHLOR 10 MEQ/100 ML 10 MEQ/100 ML BAG IV ONE (11:00)
[2017-06-11] MEDS: CEFEPIME 2 GM in SODIUM CHLORIDE 0.9% MINIBAG 100 ML IV SCH ×2 (12:12→22:14)
--- NOTE | 2017-06-11 14:15 | PROVIDER PROGRESS NOTE ---
Subjective - Prog Note Date Prog Note Date: 06/11/17 - Subjective Pt reports feeling: Improved Subjective: pt denies fever, chill, cough, chest pain, shortness of breath. Pt refuse to go to nurse home or SNF. I explain to pt the risk of TPN on PICC to go to home, specially pt already got infection, bacteremia, by the port on TPN. Pt agree to have antibiotic on PICC but not TPN to go to home. Pt report she can eat foot without issue. Current Medications - Current Medications Current Medications: Active Medications Acetaminophen (Tylenol) 650 mg PO Q4HR PRN PRN Reason: Pain or Fever > 38C (100.4F) Bumetanide (Bumex) 2 mg PO DAILY [facility] Last Admin: 06/11/17 08:48 Dose: 2 mg Escitalopram Oxalate (Lexapro) 20 mg PO DAILY [facility] Last Admin: 06/11/17 08:47 Dose: 20 mg Fat Emulsion Intravenous (Intralipid 20%) 250 mls @ 21 mls/hr IV Q24H [facility] Last Admin: 06/11/17 00:47 Dose: Not Given Chromium/Copper/Manganese/Seleni/Zn 1 ml/ Sodium Chloride 51 mls @ 5 mls/hr IV Q24H [facility] Last Admin: 06/11/17 00:49 Dose: Not Given Potassium Chloride/Dextrose/Sod Cl (D5.45ns W/20 Meq Kcl) 1,000 mls @ 50 mls/ hr IV .Q20H [facility] Last Infusion: 06/11/17 12:42 Dose: 50 mls/hr Cefepime HCl 2 gm/ Sodium (Chloride) 100 mls @ 200 mls/hr IV Q12H [facility] Last Infusion: 06/11/17 12:42 Dose: Infused Multivitamins 10 ml/ Amino (Acids/Dextrose) 2,010 mls @ 83 mls/hr IV Q24H [facility] PRN Reason: Protocol Last Admin: 06/11/17 02:45 Dose: Not Given Vancomycin HCl 1 gm/ Sodium (Chloride) 250 mls @ 167 mls/hr IV Q24H [facility] Ibuprofen (Motrin) 600 mg PO Q6HR PRN PRN Reason: PAIN Last Admin: 06/10/17 01:08 Dose: 600 mg Levothyroxine Sodium (Synthroid) 112 mcg PO QDAC [facility] Last Admin: 06/11/17 06:38 Dose: 112 mcg Miconazole Nitrate (Remedy Antifungal) 1 applic TOP Q6HR [facility] Last Admin: 06/11/17 12:12 Dose: 1 applic Ondansetron HCl (Zofran Inj) 4 mg IVP Q4HR PRN PRN Reason: Nausea / Vomiting Last Admin: 06/07/17 12:29 Dose: 4 mg Oxycodone HCl (Roxicodone) 5 mg PO Q4HR PRN PRN Reason: Pain 5 to 7 Last Admin: 06/10/17 00:31 Dose: 5 mg Oxycodone HCl (Roxicodone) 10 mg PO Q4HR PRN PRN Reason: pain Last Admin: 06/11/17 11:24 Dose: 10 mg Potassium Chloride (K-Dur) 20 meq PO DAILYWM [facility] Last Admin: 06/11/17 08:48 Dose: 20 meq Prochlorperazine Edisylate (Compazine Inj) 10 mg IVP Q6HR PRN PRN Reason: Nausea / Vomiting Last Admin: 06/06/17 15:48 Dose: 10 mg Sodium Chloride (Normal Saline Flush 0.9%) 10 ml IVP PRN PRN PRN Reason: NEEDED PER PROVIDER ORDERS Last Admin: 06/07/17 06:04 Dose: 10 ml Sodium Chloride (Normal Saline Flush 0.9%) 10 ml IVP 0100,0900,1700 [facility] Last Admin: 06/11/17 08:06 Dose: Not Given Temazepam (Restoril) 15 mg PO QPM PRN PRN Reason: Insomnia Bumetanide [Bumetanide] 4 mg PO DAILY 06/05/17 Escitalopram Oxalate [Lexapro] 20 mg PO DAILY 06/05/17 Levothyroxine Sodium [Synthroid] 112 mcg PO QDAC 06/05/17 Multivitamin [Multiple Vitamins] 1 tab DAILY 06/05/17 Potassium Chloride 20 meq PO DAILYWM 06/05/17 oxyCODONE [Roxicodone] 5 mg PO Q6H PRN 06/05/17 Objective - Vital Signs/Intake & Output Reviewed Vital Signs: Yes Vital Signs: Vital Signs x48h Temp Pulse Resp BP Pulse Ox 06/11/17 07:58 36.8 C 88 16 107/52 L 95 Intake & Output: Intake & Output 06/08/17 06/09/17 06/10/17 06/11/17 23:59 23:59 23:59 23:59 Intake Total 5884.7 4870.55 5215.5 918.333 Output Total 4450 3250 4200 400 Balance 1434.7 1620.55 1015.5 518.333 - Objective General Appearance: positive: No acute distress, Alert. negative: Lethargic Eyes Bilateral: positive: Normal inspection, PERRL, No lid inflammation, Conjunctivae nml ENT: positive: ENT inspection nml, Pharynx nml, No signs of dehydration. negative: Purulent nasal drainage, Pharyngeal erythema, Oral lesions, Dry mucous membranes Neck: positive: Nml inspection, Thyroid nml, No JVD, Trachea midline. negative : Thyromegaly, Lymphadenopathy (R), Lymphadenopathy (L), Stiff neck, Carotid bruit, Swelling/bruising, Tracheal deviation Respiratory: positive: Chest non-tender, No respiratory distress, Breath sounds nml. negative: Wheezes, Rales, Rhonchi Cardiovascular: positive: Regular rate & rhythm, No murmur, No gallop. negative : Irregularly irregular, Extrasystoles, Tachycardia, Bradycardia, JVD present, Systolic murmur, Diastolic murmur Peripheral Pulses: 2+ Radial (R), 2+ Radial (L), 2+ Dorsalis pedis (R), 2+ Dorsalis pedis (L) Abdomen: positive: Non-tender, No organomegaly, Nml bowel sounds, No distention. negative: Tenderness, Guarding, Rebound Back: positive: Nml inspection. negative: CVA tenderness (R), CVA tenderness (L ) Skin: positive: Color nml, No rash, Warm, Dry. negative: Cyanosis, Diaphoresis , Pallor Extremities: positive: Non-tender, Full ROM, Nml appearance. negative: Calf tenderness, Joint swelling, Kyra's sign/cords Neurologic/Psychiatric: positive: Oriented x3, Sensation nml, Mood/affect nml. negative: Sensory loss, Facial droop, Slurred/abnml speech, Depressed mood/ affect - Lab Results Fish Bones: 06/11/17 04:59 06/11/17 04:59 Other Labs: Lab Results x24hrs 06/11/17 06/11/17 06/10/17 Range/Units 04:59 04:59 23:25 WBC 10.4 (4.8-10.8) x10^3/uL RBC 4.08 L (4.20-5.40) 10^6/uL Hgb 10.6 L (12.0-16.0) g/dL Hct 32.6 L (37.0-47.0) % MCV 80.0 L (81.0-99.0) fL MCH 26.0 L (27.0-31.0) pg MCHC 32.5 (32.0-36.0) g/dL RDW 17.0 H (12.0-15.0) % Plt Count 446 (130-450) 10^3/uL MPV 7.1 L (7.9-10.8) fL Neut # 7.8 H (1.5-6.6) 10^3/uL Lymph # 0.7 L (1.5-3.5) 10^3/uL [place] # 1.3 H (0.0-1.0) 10^3/uL Eos # 0.4 (0.0-0.7) 10^3/uL Baso # 0.1 (0.0-0.1) 10^3/uL Absolute Nucleated RBC 0.00 x10^3/uL Nucleated RBC % 0.0 /100WBC Sodium 132 L (135-145) mmol/L Potassium 3.1 L (3.5-5.0) mmol/L Chloride 97 L (101-111) mmol/L Carbon Dioxide 23 (21-32) mmol/L Anion Gap 12.0 (6-13) BUN 38 H (6-20) mg/dL Creatinine 0.9 (0.4-1.0) mg/dL Estimated GFR (MDRD) 61 L (>89) Glucose 133 H (70-100) mg/dL Calcium 8.9 (8.5-10.3) mg/dL Phosphorus 3.8 (2.5-4.6) mg/dL Magnesium 2.0 (1.7-2.8) mg/dL Total Bilirubin 0.6 (0.2-1.0) mg/dL AST 54 H (10-42) IU/L ALT 109 H (10-60) IU/L Alkaline Phosphatase 309 H (42-121) IU/L Total Protein 6.9 (6.7-8.2) g/dL Albumin 2.4 L (3.2-5.5) g/dL Globulin 4.5 H (2.1-4.2) g/dL Albumin/Globulin Ratio 0.5 L (1.0-2.2) Prealbumin 12 L (18-45) mg/dL Triglycerides 97 ( - 149) mg/dL Last Dose Date 06/10/17 Last Dose Time 1357 Vancomycin Trough 27.0 H* (5.0-15.0) ug/mL Assessment/Plan - Problem List (1) Bacteremia associated with IV line Impression: (1) Bacteremia associated with IV line Impression: call [facility], will put PICC today for home with antibiotics for bacteremia pt still refuse to be D/C to nurse home or SNF. pt agree to go to home without TPN. pt understand she had bacteremia, and high risk to get infection again with TPN. pt report she can normally eat food. Pt report she will see PCP and GI appointment as out-pt to manage her malnutrition. P/W right chest wall cellulitis at site of barrett catheter. WBC 13k. BCx2 obtained, line cx x2 + Methicillin Resistant Staph Epi. Patient had coverage with vancomycin 06/06-06/08, then stopped 06/09 because patient did not want to go to SNF to complete antibiotics. I discussed case with CAT Caldwell at [facility]. Would recommend 1 week IV coverage, PO will not provide adequate coverage. Repeat BC 06/10. -If repeat BC negative then it will be safe to replace line (PICC) on 06/11 -D/w patient and her , she is agreeable to complete antibiotics at home, this will be out of pocket cost but she is willing to accept that in place of going to SNF -Continue vanco till 06/16, pharm dosing, trough tonight (2) UTI (urinary tract infection) due to urinary indwelling catheter Impression: continue Cefepime S/P cystectomy with neobladder and has [address], 1 created more recently for self-catheterization, the other (larger one) will be removed in a few weeks. Urine cx + psuedomonas aeruginosa, she denies hx of same. Covered by cefepime from 06/06-06/08, stopped for same as above. -Cefepime 2g IV bid until 06/16 -Drains to gravity (3) Cellulitis Impression: continue dressing change, antibiotics P/W right chest cellulitis which occurred 2d [employer], thought to be chemical reaction to new antibiotic disc used during routine care. She did have a 3x2cm bullae superior to port which had green pus, Cx of pus had no growth. Cellulitis resolved with coverage as noted above. (4) Hypothyroid Impression: Due to thyroid cancer. Stable -Continue synthroid (5) Malnutrition Impression: pt agree PICC for antibiotic but not TPN. pt report she can eat normally. She will see her PCP and GI to manage her malnutrition. Due to malabsorption from multiple GI surgeries and now ileostomy. Has been on TPN qHS [id number] and "dwindles" when it is stopped per her . No CVC currently so has been on PPN. -Continue PPN ans resume qHS TPN once CVC reestablished -Dual lumen PICC preferred (6) Iron deficinecy anemia Impression: Lack of absorption, iron studies very low. Given 200mg IV iron sucrose on 06/07. Based on iron studies and current H&H she needs ~1gr of IV iron. -Proceed with test dose 25mg then 175mg if no adverse reaction. -She will need additional 600mg IV infusion as oupatient, order will need to come for PCP for [facility]
--- NOTE | 2017-06-11 17:17 | XRAY Report ---
FRONTAL CHEST: 06/11/2017 CLINICAL INDICATION: Right arm PICC placement. FINDINGS: Frontal view of the chest demonstrates a normal cardiac silhouette. Linear scarring or atelectasis in the left midlung is stable from 05/28/2017. Right arm PICC terminates in the right atrium, approximately 3 cm past the cavoatrial junction. Right jugular venous catheter has been removed. IMPRESSION: RIGHT ARM PICC TERMINATING IN THE RIGHT ATRIUM, APPROXIMATELY 3 CM PAST THE CAVOATRIAL JUNCTION. STABLE LEFT MIDLUNG OPACITY. TD: 06/11/2017 17:16 MTDD
[2017-06-11] MEDS: SODIUM CHLORIDE FLUSH 0.9% 10 ML SYRINGE IVP PRN (19:32)
[2017-06-12] MEDS: oxyCODONE 5 MG TABLET PO PRN (01:14)
[2017-06-12] MEDS: MICONAZOLE CREAM 118 ML TUBE TOP SCH ×3 (01:14→13:54)
[2017-06-12] MEDS: D5.45NS W/20 MEQ KCL 1,000 ML IV SCH (04:36)
[2017-06-12] MEDS: SODIUM CHLORIDE FLUSH 0.9% 10 ML SYRINGE IVP SCH ×2 (06:37→09:44)
[2017-06-12] MEDS: LEVOTHYROXINE 112 MCG TABLET PO SCH (06:41)
[2017-06-12] MEDS ORDERED: POTASSIUM CHLORIDE 20 MEQ TABLET PO SCH (07:29)
[2017-06-12] MEDS ORDERED: POTASSIUM CHLOR 20 MEQ/100 ML 20 MEQ/100 ML BAG IV SCH (07:30)
[2017-06-12] MEDS ORDERED: VANCOMYCIN INJ 1 GM in SODIUM CHLORIDE 0.9% 250 ML IV SCH (09:00)
[2017-06-12 09:01] LABS: VANCOMYCIN,TROUGH 9.9 ug/mL (5.0-15.0)
[2017-06-12] MEDS: POTASSIUM CHLORIDE 20 MEQ TABLET PO SCH (09:43)
[2017-06-12] MEDS: BUMETANIDE 1 MG TABLET PO SCH (09:43)
[2017-06-12] MEDS: ESCITALOPRAM 10 MG TABLET PO SCH (09:43)
--- NOTE | 2017-06-12 12:17 | Discharge Plan ---
Discharge Plan Disposition: Home, Self Care Condition: Stable Prescriptions: Miconazole Cream [Remedy Antifungal] 1 applic TOP Q6HR PRN #1 tube PRN Reason: Itching Bumetanide [Bumex] 2 mg PO DAILY #7 tablet Diet: Regular Activity Restrictions: Activity as Tolerated Shower Restrictions: No Weight Bearing: Full Weight Instruction Topics: Cefepime injection, Vancomycin injection, PICC, Nutrition Total Parenteral Ch, Central Line Infecs, PICC Line Flush Home Additional Instructions or Follow Up instructions: may see PCP in 2-3 days, follow up division superintendent as out-pt in one week, have home in fusion of Cefepime and Vancomycin for one week, have blood culture in one week. Follow-Up Care: Dietitian, Home Health - PT No Smoking: If you smoke, Please STOP! Call for help. Follow-up with: Julio Cesar Calixto MD [Primary Care Provider] -
[2017-06-12] MEDS: CEFEPIME 2 GM in SODIUM CHLORIDE 0.9% MINIBAG 100 ML IV SCH (13:00)
--- NOTE | 2017-06-12 14:13 | DISCHARGE SUMMARY ---
"Discharge Summary Discharge Date: 06/12/17 Discharging Provider: GEORGE Primary Care Provider: Julio Cesar Jin Condition at Discharge: Stable Discharge Disposition: 01 Home, Self Care Discharge Facility Name: Home - DIAGNOSES Admission Diagnoses: (1) Cellulitis (2) CHF (congestive heart failure) (3) Anxiety and depression (4) Hypothyroid Discharge Diagnoses with Status of Each Condition: (1) Bacteremia associated with IV line continue PCP management for one week IV antibiotics, and blood culture to R/O bacteremia (2) UTI (urinary tract infection) due to urinary indwelling catheter continue antibiotic course (3) Cellulitis continue dressing change as nurse instruction, and antibiotics as the above instruction (4) Hypothyroid Stable-Continue synthroid (5) Malnutrition Explain to pt the risk and benefit of TPN. Pt had bacteremia infected on her port site when she was on TPN. pt understand PICC for antibiotic but not TPN. pt report she can eat normally. She state she will see her PCP and GI to manage her malnutrition and TPN. (6) Iron deficinecy anemia Given 200mg IV iron sucrose in hospital, will continue to be managed by PCP - HPI History of Present Illness: refer from Dr. Aguilar's HPI on 06/05/17 as the following: Mrs. Princess Aldana is a very pleasant 77-year-old female who has a history of malnutrition for which she takes nightly TPN through port in her chest. She also has multiple cancer history. She has been having some increasing discomfort in the area of her port and came into the emergency department today where an abscess was drained just superior to the port. She is brought into the hospital for IV antibiotics and monitoring. - CONSULTS | PROCEDURES Consultations: consult with Dr. Leung and Anesthesiologist for PICC insert - HOSPITAL COURSE Hospital Course: Pt was admitted for an abscess with drainage just superior to the port. Pt used the port for her TPN. Surgeon was consulted to remove the port and treat the abscess. Pt was then found to have bacteremia in blood culture, appear to be infected from the port where pt used for her TPN. Pt was also found to have UTI. Pt was then treated with antibiotics according to the sensitive study. Pt was inserted PICC for out-pt continuing of IV antibiotics. - ALLERGIES Allergies/Adverse Reactions: Allergies Allergy/AdvReac Type Severity Reaction Status Date / Time codeine Allergy Nausea Verified 06/05/17 13:52 ciprofloxacin [From Cipro] AdvReac bones ache Verified 06/05/17 13:52 ciprofloxacin HCl * AdvReac bones ache Verified 06/05/17 13:52 [From Cipro] - MEDICATIONS Home Medications: Ambulatory Orders Medication Instructions Recorded Confirmed Escitalopram Oxalate [Lexapro] 20 mg PO DAILY 06/05/17 06/05/17 Levothyroxine Sodium [Synthroid] 112 mcg PO QDAC 06/05/17 06/05/17 Multivitamin [Multiple Vitamins] 1 tab DAILY 06/05/17 06/05/17 Potassium Chloride 20 meq PO DAILYWM 06/05/17 06/05/17 oxyCODONE [Roxicodone] 5 mg PO Q6H PRN 06/05/17 06/05/17 Bumetanide [Bumex] 2 mg PO DAILY #7 tablet 06/12/17 Cefepime 2 gm IV Q12H 06/12/17 06/12/17 Miconazole Cream [Remedy 1 applic TOP Q6HR PRN #1 tube 06/12/17 Antifungal] Vancomycin/0.9 % Sod Chloride 1 gm IV Q24H 06/12/17 06/12/17 [Vanco 1 Gram/250 ml-0.9% NaCl] - PHYSICAL EXAM AT DISCHARGE General Appearance: positive: No acute distress, Alert. negative: Lethargic Eyes Bilateral: positive: Normal inspection, PERRL, No lid inflammation, Conjunctivae nml ENT: positive: ENT inspection nml, Pharynx nml, No signs of dehydration. negative: Purulent nasal drainage, Pharyngeal erythema, Oral lesions Neck: positive: Nml inspection, Thyroid nml, No JVD, Trachea midline. negative : Thyromegaly, Lymphadenopathy (R), Lymphadenopathy (L), Stiff neck, Carotid bruit, Swelling/bruising, Tracheal deviation Cardiovascular: positive: Regular rate & rhythm, No murmur, No gallop. negative : Irregularly irregular, Extrasystoles, Tachycardia, Bradycardia, Systolic murmur, Diastolic murmur Peripheral Pulses: positive: 2+ Abdomen: positive: Non-tender, No organomegaly, Nml bowel sounds, No distention. negative: Tenderness, Guarding, Rebound Back: positive: Nml inspection. negative: CVA tenderness (R), CVA tenderness (L ) Skin: positive: Color nml, No rash, Warm, Dry. negative: Cyanosis, Diaphoresis , Pallor Extremities: positive: Non-tender, Full ROM. negative: Calf tenderness, Joint swelling, Kyra's sign/cords Neurologic/Psychiatric: positive: Oriented x3, Sensation nml, Mood/affect nml. negative: Sensory loss, Facial droop, Slurred/abnml speech, Depressed mood/ affect - LABS Result Diagrams: 06/11/17 04:59 06/11/17 04:59 - FOLLOW UP Follow Up: May have home infusion of antibiotics Cefepime and Vancomycin for one week, and with Vancomycin through to test vancomycin concentration in blood stream as the schedule per pharmacy. may have blood culture in one week. may see PCP in 2-3 days. May see teletype installer as the schedule. pt refused to be d/c to nurse home or SNF. I explained pt and her the risk and benefit of TPN. Pt state she understand the PICC is for home infusion of antibiotics not for TPN. Pt state she will discuss with her PCP and teletype installer about her malnutrition and TPN please refer the discharge summary to pt's PCP - TIME SPENT Time Spent in Discharge (Minutes): 60"
[2017-06-12 16:07] VITALS: BP 119/56
== END 2017-06-12 16:30 | disposition home health service (06) | DRG 314 ==
LOC: ED 13:35 → OBS 19:40 → MS3 06-06 10:22 → OBSVTOIN 06-06 10:22
PROVIDERS: ADMIT Hospitalist; ATTEND Nurse Practitioner Gerontology
PROC: 02PY33Z Removal of Infusion Device from Great Vessel, Percutaneous Approach (ICD-10-PCS; principal; 2017-06-06)
PROC: 3E0336Z Introduction of Nutritional Substance into Peripheral Vein, Percutaneous Approach (ICD-10-PCS; 2017-06-06)
PROC: 02H633Z Insertion of Infusion Device into Right Atrium, Percutaneous Approach (ICD-10-PCS; 2017-06-11)
DX: T80.212A Local infection due to central venous catheter, initial encounter (principal); T80.211A Bloodstream infection due to central venous catheter, initial encounter; I50.43 Acute on chronic combined systolic (congestive) and diastolic (congestive) heart failure; I50.9 Heart failure, unspecified; K90.9 Intestinal malabsorption, unspecified; L03.313 Cellulitis of chest wall; L02.213 Cutaneous abscess of chest wall; T83.510A Infection and inflammatory reaction due to cystostomy catheter, initial encounter; Y83.1 Surgical operation with implant of artificial internal device as the cause of abnormal reaction of the patient, or of later complication, without mention of misadventure at the time of the procedure; N39.0 Urinary tract infection, site not specified; Z85.41 Personal history of malignant neoplasm of cervix uteri; Z85.51 Personal history of malignant neoplasm of bladder; K91.2 Postsurgical malabsorption, not elsewhere classified; Z87.891 Personal history of nicotine dependence; Z86.19 Personal history of other infectious and parasitic diseases; B96.5 Pseudomonas (aeruginosa) (mallei) (pseudomallei) as the cause of diseases classified elsewhere; Y83.8 Other surgical procedures as the cause of abnormal reaction of the patient, or of later complication, without mention of misadventure at the time of the procedure; B95.7 Other staphylococcus as the cause of diseases classified elsewhere; F41.9 Anxiety disorder, unspecified; F32.9 Major depressive disorder, single episode, unspecified; E89.0 Postprocedural hypothyroidism; Y84.6 Urinary catheterization as the cause of abnormal reaction of the patient, or of later complication, without mention of misadventure at the time of the procedure; D50.8 Other iron deficiency anemias; Z16.11 Resistance to penicillins; Z96.0 Presence of urogenital implants; Z93.2 Ileostomy status; Z93.59 Other cystostomy status; Z93.6 Other artificial openings of urinary tract status; Z85.850 Personal history of malignant neoplasm of thyroid
CPT/HCPCS: 36415; 71045; 71046; 80048; 80053; 81001; 81003; 83540; 83605; 83735; 83880; 84100; 84134; 84443; 84466; 84478; 85025; 87040; 87070; 87071; 87077; 87086; 87205; 96361; 96365; 96366; 96367; 99283; 99284

== ENCOUNTER 2017-06-16 08:00 | Outpatient (CLI) | payer MEDICARE, OTHER ==
[2017-06-16 15:37] LABS: ALBUMIN 2.8 g/dL (3.2-5.5); ALBUMIN/GLOBULIN RATIO 0.7 (1.0-2.2); ALKALINE PHOSPHATASE 228 IU/L (42-121); ALT ALANINE AMINOTRANSFERASE 40 IU/L (10-60); AST ASPARTATE AMINOTRANSFERASE 24 IU/L (10-42); BILIRUBIN,TOTAL 0.7 mg/dL (0.2-1.0); BUN - BLOOD UREA NITROGEN 60 mg/dL (6-20); CALCIUM 9.2 mg/dL (8.5-10.3); CARBON DIOXIDE - CO2 22 mmol/L (21-32); CHLORIDE 101 mmol/L (101-111); CREATININE 1.6 mg/dL (0.4-1.0); GFR - MDRD 31 (>89); GLUCOSE 99 mg/dL (70-100); PHOSPHORUS 3.5 mg/dL (2.5-4.6); SODIUM 134 mmol/L (135-145); TOTAL PROTEIN 7.1 g/dL (6.7-8.2); VANCOMYCIN,TROUGH 22.7 ug/mL (5.0-15.0)
[2017-06-16 15:39] LABS: BASOPHILS % (AUTO) 1.1 %; EOSINOPHILS % (AUTO) 3.7 %; HGB - HEMOGLOBIN 11.4 g/dL (12.0-16.0); LYMPHOCYTES % (AUTO) 7.2 %; MEAN CORPUSCULAR HEMOGLOBIN 25.3 pg (27.0-31.0); MEAN CORPUSCULAR HGB CONC 31.4 g/dL (32.0-36.0); MEAN CORPUSCULAR VOLUME 80.6 fL (81.0-99.0); MEAN PLATELET VOLUME 7.8 fL (7.9-10.8); MONOCYTES % (AUTO) 7.9 %; NEUTROPHILS % (AUTO) 80.1 %; PLT - PLATELET COUNT 491 10^3/uL (130-450); RED BLOOD COUNT 4.52 10^6/uL (4.20-5.40); RED CELL DISTRIBUTION WIDTH 17.2 % (12.0-15.0); WHITE BLOOD COUNT 13.1 x10^3/uL (4.8-10.8)
[2017-06-16 15:42] LABS: ABNORMAL LYMPHS % (MANUAL) 0 %
[2017-06-16 18:06] LABS: BAND NEUTROPHILS % (MANUAL) 2 %; EOSINOPHILS # (MANUAL) 0.7 10^3/uL (0-0.7); LYMPHOCYTES # (MANUAL) 0.8 10^3/uL (1.5-3.5); LYMPHOCYTES % (MANUAL) 6 %; METAMYELOCYTES % (MANUAL) 1 %; MONOCYTES # (MANUAL) 0.9 10^3/uL (0.0-1.0); NEUTROPHILS # (MANUAL) 10.6 10^3/uL (1.5-6.6); NEUTROPHILS % (MANUAL) 79 %
[2017-06-16 18:08] LABS: DIFFERENTIAL COMMENT MANUAL DIFFERENTIAL; PLATELET ESTIMATE, MANUAL INCREASED (>450,000) (NORMAL); PLATELET MORPHOLOGY 1+ GIANT PLATELETS (NORMAL); RBC MORPHOLOGY (MULTIPLE) NORMAL APPEARANCE (NORMAL)
== END 2017-06-16 08:01 | disposition home or self-care (01) ==
LOC: LAB.R 08:00
PROVIDERS: ATTEND Urology
DX: K63.2 Fistula of intestine (principal); K91.2 Postsurgical malabsorption, not elsewhere classified; K90.89 Other intestinal malabsorption
CPT/HCPCS: 80053; 83735; 84100; 85025

== ENCOUNTER 2018-09-09 08:00 | Outpatient (CLI) | payer MEDICARE, OTHER ==
[2018-09-09 17:47] LABS: BILIRUBIN,URINE NEGATIVE (NEGATIVE); GLUCOSE, URINE (UA) NEGATIVE (NEGATIVE); KETONES,URINE (UA) NEGATIVE (NEGATIVE); LEUKOCYTE ESTERASE, URINE LARGE (NEGATIVE); NITRITE,URINE NEGATIVE (NEGATIVE); OCCULT BLOOD,URINE TRACE-INTA (NEGATIVE); PH,URINE 6.5 PH (5.0-7.5); PROTEIN,URINE NEGATIVE (NEGATIVE); UROBILINOGEN,URINE 0.2 (NORMAL) E.U./dL (NORMAL)
[2018-09-09 17:48] LABS: CLARITY,URINE CLOUDY (CLEAR)
[2018-09-09 18:40] LABS: BACTERIA,URINE Few /HPF (None Seen); SQUAMOUS EPITHELIAL CELL,UR RARE Squamous (<= Few)
== END 2018-09-09 23:59 | disposition home or self-care (01) ==
LOC: LAB.F 08:00
PROVIDERS: ATTEND Urology
DX: R30.0 Dysuria (principal)
CPT/HCPCS: 81001; 81003; 87086

== ENCOUNTER 2019-10-29 12:31 | Outpatient (CLI) | payer MEDICARE, OTHER ==
--- NOTE | 2019-10-29 17:21 | DEXA Report ---
Reason: OSTEOPENIA Procedure Date: 10/29/2019 Accession Number: [id number] / [id number] Procedure: DEX - Dexa Spine and/or Hip CPT Code: Final Report FULL RESULT: PROCEDURE: Dexa Spine and/or Hip INDICATIONS: OSTEOPENIA TECHNIQUE: Dual energy x-ray absorptiometry (DXA) was performed on a Click Contact System. Regions measured are the AP Spine, femoral neck, and if needed forearm. COMPARISON: 09/05/2012. FINDINGS: Lumbar Spine: Bone Mineral Density 1.061 g/cm/cm,T score -1.0, normal Left forearm: Bone Mineral Density 0.447 g/cm/cm, T score -3.8, osteopenia (T score greater or equal to -1.0: NORMAL) (T score from -1.1 to -2.4: OSTEOPENIA) (T score less than or equal to -2.5 to: OSTEOPOROSIS) Impression: Osteopenia. Patients with diagnosis of osteoporosis or osteopenia should have regular bone mineral density assessment. For those eligible for Medicare, routine testing is allowed once every 2 years. Testing frequency can be increased for patients who have rapidly progressing disease or for those who are receiving medical therapy to restore bone mass. Reviewed by: Jeannette Rivera MD, PhD on 10/29/2019 5:20 PM PDT Approved by: Jeannette Rivera MD, PhD on 10/29/2019 5:20 PM PDT Station ID: [id number]
== END 2019-10-29 12:32 | disposition home or self-care (01) ==
LOC: DI 12:31
PROVIDERS: ATTEND Family Medicine
DX: M85.89 Other specified disorders of bone density and structure, multiple sites (principal); Z13.820 Encounter for screening for osteoporosis
CPT/HCPCS: 77080; 77081

== ENCOUNTER 2021-01-05 11:52 | Outpatient (CLI) | payer MEDICARE, OTHER ==
--- NOTE | 2021-01-05 13:51 | XRAY Report ---
PROCEDURE: Chest 2 View X-Ray INDICATIONS: Cough TECHNIQUE: 2 view(s) of the chest. COMPARISON: 06/13/2017 FINDINGS: Surgical changes and devices: Right IJ catheter terminates near the cavoatrial junction. Lungs and pleura: No pleural effusions or pneumothorax. Streaky opacity in the left hilum and midlun g is unchanged. No new air space opacity identified. Mediastinum: Mediastinal contours are normal. Heart size is normal. Bones and chest wall: No suspicious bony abnormalities. Soft tissues appear unremarkable. IMPRESSION: No new or acute airspace opacity when compared with 06/13/2017 exam. Streaky opacity in th e left hilum and midlung is not significantly changed. Reviewed by: Jose Garcia MD on 01/05/2021 1:49 PM PDT Approved by: Jose Garcia MD on 01/05/2021 1:49 PM PDT Station ID: [id number]
== END 2021-01-05 11:53 ==
LOC: DI.S 11:52
PROVIDERS: ATTEND Physician Assistant Medical
DX: R05 Cough (principal); R91.8 Other nonspecific abnormal finding of lung field

== ENCOUNTER 2021-03-16 14:02 | Outpatient (CLI) | payer MEDICARE, OTHER ==
--- NOTE | 2021-03-16 16:02 | XRAY Report ---
PROCEDURE: Chest 2 View X-Ray INDICATIONS: CENTRILOBULAR EMPYSEMA TECHNIQUE: 2 view(s) of the chest. COMPARISON: Chest x-ray 2 view, 01/05/2021. Chest x-ray one view, 06/11/2017. FINDINGS: Surgical changes and devices: There is a right-sided central line with tip projecting to the area of SVC. Lungs and pleura: Diffuse interstitial prominence appears unchanged. No pleural effusions or pneumot horax. Linear densities in the left mid lung is compatible with scarring and atelectasis. Mediastinum: Mediastinal contours are normal. Heart size is normal. Bones and chest wall: No suspicious bony abnormalities. Soft tissues appear unremarkable. IMPRESSION: 1. Diffuse chronic interstitial prominence appears unchanged. 2. Left midlung scars and atelectasis. Reviewed by: Dona Westbrook MD on 03/16/2021 4:01 PM PST Approved by: Dona Westbrook MD on 03/16/2021 4:01 PM PST Station ID: [id number]
== END 2021-03-16 14:03 | disposition home or self-care (01) ==
LOC: DI 14:02
PROVIDERS: ATTEND Internal Medicine Pulmonary Disease
DX: J43.2 Centrilobular emphysema (principal); J47.9 Bronchiectasis, uncomplicated; C34.12 Malignant neoplasm of upper lobe, left bronchus or lung

== ENCOUNTER 2021-04-24 16:05 | Outpatient (CLI) | payer MEDICARE, OTHER ==
[2021-04-24 16:40] LABS: ALBUMIN 2.5 g/dL (3.2-5.5); ALBUMIN/GLOBULIN RATIO 0.5 (1.0-2.2); BILIRUBIN,TOTAL 0.5 mg/dL (0.2-1.0); CALCIUM 8.7 mg/dL (8.5-10.3); MAGNESIUM 2.1 mg/dL (1.7-2.8); PHOSPHORUS 3.4 mg/dL (2.5-4.6); POTASSIUM 4.6 mmol/L (3.5-5.0); TOTAL PROTEIN 7.2 g/dL (6.7-8.2)
== END 2021-04-24 16:06 | disposition home or self-care (01) ==
LOC: LAB.R 16:05
PROVIDERS: ATTEND Urology
DX: K63.2 Fistula of intestine (principal); K91.2 Postsurgical malabsorption, not elsewhere classified
CPT/HCPCS: 80053; 83735; 84100

== ENCOUNTER 2021-05-01 16:34 | Outpatient (CLI) | payer MEDICARE, OTHER ==
[2021-05-01 17:08] LABS: BASOPHILS # (AUTO) 0.1 10^3/uL (0.0-0.1); BASOPHILS % (AUTO) 0.8 %; EOSINOPHILS # (AUTO) 0.3 10^3/uL (0.0-0.7); EOSINOPHILS % (AUTO) 3.4 %; HCT - HEMATOCRIT 30.8 % (37.0-47.0); LYMPHOCYTES # (AUTO) 0.7 10^3/uL (1.5-3.5); LYMPHOCYTES % (AUTO) 7.6 %; MEAN CORPUSCULAR HEMOGLOBIN 22.5 pg (27.0-31.0); MEAN CORPUSCULAR HGB CONC 29.2 g/dL (32.0-36.0); MEAN PLATELET VOLUME 9.9 fL (7.9-10.8); MONOCYTES # (AUTO) 0.5 10^3/uL (0.0-1.0); MONOCYTES % (AUTO) 5.4 %; NEUTROPHILS # (AUTO) 7.8 10^3/uL (1.5-6.6); NEUTROPHILS % (AUTO) 81.8 %; PLT - PLATELET COUNT 333 10^3/uL (130-450); WHITE BLOOD COUNT 9.6 x10^3/uL (4.8-10.8)
[2021-05-01 17:23] LABS: ALBUMIN 2.4 g/dL (3.2-5.5); ALBUMIN/GLOBULIN RATIO 0.6 (1.0-2.2); BILIRUBIN,TOTAL 0.3 mg/dL (0.2-1.0); CALCIUM 8.3 mg/dL (8.5-10.3); CREATININE 1.1 mg/dL (0.4-1.0); PHOSPHORUS 3.5 mg/dL (2.5-4.6); TOTAL PROTEIN 6.7 g/dL (6.7-8.2)
== END 2021-05-01 16:35 | disposition home or self-care (01) ==
LOC: LAB.R 16:34
PROVIDERS: ATTEND Urology
DX: K63.2 Fistula of intestine (principal); K91.2 Postsurgical malabsorption, not elsewhere classified
CPT/HCPCS: 80053; 83735; 84100; 85025

== ENCOUNTER 2021-05-15 15:26 | Outpatient (CLI) | payer MEDICARE, OTHER ==
[2021-05-15 15:49] LABS: BASOPHILS # (AUTO) 0.1 10^3/uL (0.0-0.1); BASOPHILS % (AUTO) 0.8 %; EOSINOPHILS # (AUTO) 0.2 10^3/uL (0.0-0.7); EOSINOPHILS % (AUTO) 2.2 %; HCT - HEMATOCRIT 32.4 % (37.0-47.0); HGB - HEMOGLOBIN 9.5 g/dL (12.0-16.0); LYMPHOCYTES # (AUTO) 0.9 10^3/uL (1.5-3.5); MEAN CORPUSCULAR HEMOGLOBIN 22.5 pg (27.0-31.0); MEAN CORPUSCULAR HGB CONC 29.3 g/dL (32.0-36.0); MEAN CORPUSCULAR VOLUME 76.6 fL (81.0-99.0); MEAN PLATELET VOLUME 10.1 fL (7.9-10.8); MONOCYTES # (AUTO) 0.6 10^3/uL (0.0-1.0); MONOCYTES % (AUTO) 6.3 %; NEUTROPHILS # (AUTO) 7.1 10^3/uL (1.5-6.6); PLT - PLATELET COUNT 301 10^3/uL (130-450); RED BLOOD COUNT 4.23 10^6/uL (4.20-5.40); RED CELL DISTRIBUTION WIDTH 17.2 % (12.0-15.0); WHITE BLOOD COUNT 8.9 x10^3/uL (4.8-10.8)
[2021-05-15 15:54] LABS: SLIDE REVIEW? Not Indicated
[2021-05-15 16:04] LABS: ALBUMIN 2.4 g/dL (3.2-5.5); ALBUMIN/GLOBULIN RATIO 0.5 (1.0-2.2); BILIRUBIN,TOTAL 0.7 mg/dL (0.2-1.0); CALCIUM 8.6 mg/dL (8.5-10.3); CREATININE 0.9 mg/dL (0.4-1.0); CRP - C-REACTIVE PROTEIN 6.5 mg/dL (0-1.0); MAGNESIUM 1.9 mg/dL (1.7-2.8); PHOSPHORUS 3.2 mg/dL (2.5-4.6); POTASSIUM 4.1 mmol/L (3.5-5.0); TOTAL PROTEIN 7.2 g/dL (6.7-8.2)
== END 2021-05-15 15:27 | disposition home or self-care (01) ==
LOC: LAB.R 15:26
PROVIDERS: ATTEND Urology
DX: K63.2 Fistula of intestine (principal); K91.2 Postsurgical malabsorption, not elsewhere classified
CPT/HCPCS: 80053; 83735; 84100; 84478; 85025; 86140

== ENCOUNTER 2021-05-22 15:09 | Outpatient (CLI) | payer MEDICARE, OTHER ==
[2021-05-22 15:25] LABS: BASOPHILS # (AUTO) 0.1 10^3/uL (0.0-0.1); BASOPHILS % (AUTO) 0.8 %; EOSINOPHILS # (AUTO) 0.3 10^3/uL (0.0-0.7); EOSINOPHILS % (AUTO) 3.1 %; HCT - HEMATOCRIT 31.6 % (37.0-47.0); HGB - HEMOGLOBIN 9.3 g/dL (12.0-16.0); LYMPHOCYTES % (AUTO) 10.1 %; MEAN CORPUSCULAR HEMOGLOBIN 22.6 pg (27.0-31.0); MEAN CORPUSCULAR HGB CONC 29.4 g/dL (32.0-36.0); MEAN CORPUSCULAR VOLUME 76.7 fL (81.0-99.0); MEAN PLATELET VOLUME 10.1 fL (7.9-10.8); MONOCYTES # (AUTO) 0.6 10^3/uL (0.0-1.0); MONOCYTES % (AUTO) 6.4 %; NEUTROPHILS # (AUTO) 7.7 10^3/uL (1.5-6.6); NEUTROPHILS % (AUTO) 78.9 %; PLT - PLATELET COUNT 365 10^3/uL (130-450); RED BLOOD COUNT 4.12 10^6/uL (4.20-5.40); RED CELL DISTRIBUTION WIDTH 17.1 % (12.0-15.0); WHITE BLOOD COUNT 9.8 x10^3/uL (4.8-10.8)
[2021-05-22 15:43] LABS: ALBUMIN 2.6 g/dL (3.2-5.5); ALBUMIN/GLOBULIN RATIO 0.5 (1.0-2.2); BILIRUBIN,TOTAL 0.4 mg/dL (0.2-1.0); CALCIUM 8.5 mg/dL (8.5-10.3); CREATININE 0.9 mg/dL (0.4-1.0); PHOSPHORUS 3.7 mg/dL (2.5-4.6); POTASSIUM 4.4 mmol/L (3.5-5.0); TOTAL PROTEIN 7.4 g/dL (6.7-8.2)
== END 2021-05-22 15:10 | disposition home or self-care (01) ==
LOC: LAB.R 15:09
PROVIDERS: ATTEND Urology
DX: K63.2 Fistula of intestine (principal); Z79.899 Other long term (current) drug therapy; K91.2 Postsurgical malabsorption, not elsewhere classified
CPT/HCPCS: 80053; 83735; 84100; 85025

== ENCOUNTER 2021-05-29 16:02 | Outpatient (CLI) | payer MEDICARE, OTHER ==
[2021-05-29 16:32] LABS: BASOPHILS # (AUTO) 0.1 10^3/uL (0.0-0.1); BASOPHILS % (AUTO) 0.9 %; EOSINOPHILS # (AUTO) 0.4 10^3/uL (0.0-0.7); EOSINOPHILS % (AUTO) 4.5 %; HCT - HEMATOCRIT 31.9 % (37.0-47.0); HGB - HEMOGLOBIN 9.2 g/dL (12.0-16.0); LYMPHOCYTES % (AUTO) 10.4 %; MEAN CORPUSCULAR HEMOGLOBIN 22.3 pg (27.0-31.0); MEAN CORPUSCULAR HGB CONC 28.8 g/dL (32.0-36.0); MEAN CORPUSCULAR VOLUME 77.4 fL (81.0-99.0); MEAN PLATELET VOLUME 9.7 fL (7.9-10.8); MONOCYTES # (AUTO) 0.6 10^3/uL (0.0-1.0); MONOCYTES % (AUTO) 5.9 %; NEUTROPHILS # (AUTO) 7.3 10^3/uL (1.5-6.6); NEUTROPHILS % (AUTO) 77.7 %; PLT - PLATELET COUNT 408 10^3/uL (130-450); RED BLOOD COUNT 4.12 10^6/uL (4.20-5.40); RED CELL DISTRIBUTION WIDTH 17.2 % (12.0-15.0); WHITE BLOOD COUNT 9.4 x10^3/uL (4.8-10.8)
[2021-05-29 16:47] LABS: ALBUMIN 2.4 g/dL (3.2-5.5); ALBUMIN/GLOBULIN RATIO 0.5 (1.0-2.2); BILIRUBIN,TOTAL 0.4 mg/dL (0.2-1.0); CALCIUM 8.4 mg/dL (8.5-10.3); CREATININE 0.9 mg/dL (0.4-1.0); PHOSPHORUS 3.6 mg/dL (2.5-4.6); POTASSIUM 4.8 mmol/L (3.5-5.0); TOTAL PROTEIN 7.1 g/dL (6.7-8.2)
== END 2021-05-29 16:03 | disposition home or self-care (01) ==
LOC: LAB.R 16:02
PROVIDERS: ATTEND Urology
DX: K63.2 Fistula of intestine (principal); K91.2 Postsurgical malabsorption, not elsewhere classified
CPT/HCPCS: 80053; 83735; 84100; 85025

== ENCOUNTER 2021-06-12 15:54 | Outpatient (CLI) | payer MEDICARE, OTHER ==
[2021-06-12 16:15] LABS: BASOPHILS # (AUTO) 0.1 10^3/uL (0.0-0.1); BASOPHILS % (AUTO) 0.9 %; EOSINOPHILS # (AUTO) 0.3 10^3/uL (0.0-0.7); EOSINOPHILS % (AUTO) 2.6 %; HGB - HEMOGLOBIN 8.9 g/dL (12.0-16.0); LYMPHOCYTES # (AUTO) 1.2 10^3/uL (1.5-3.5); LYMPHOCYTES % (AUTO) 10.7 %; MEAN CORPUSCULAR HGB CONC 28.7 g/dL (32.0-36.0); MEAN CORPUSCULAR VOLUME 76.5 fL (81.0-99.0); MEAN PLATELET VOLUME 9.7 fL (7.9-10.8); MONOCYTES # (AUTO) 0.7 10^3/uL (0.0-1.0); MONOCYTES % (AUTO) 6.8 %; NEUTROPHILS # (AUTO) 8.4 10^3/uL (1.5-6.6); NEUTROPHILS % (AUTO) 78.2 %; PLT - PLATELET COUNT 394 10^3/uL (130-450); RED BLOOD COUNT 4.05 10^6/uL (4.20-5.40); RED CELL DISTRIBUTION WIDTH 17.3 % (12.0-15.0); WHITE BLOOD COUNT 10.8 x10^3/uL (4.8-10.8)
[2021-06-12 16:41] LABS: ALBUMIN 2.4 g/dL (3.2-5.5); ALBUMIN/GLOBULIN RATIO 0.5 (1.0-2.2); BILIRUBIN,TOTAL 0.5 mg/dL (0.2-1.0); CALCIUM 8.3 mg/dL (8.5-10.3); CRP - C-REACTIVE PROTEIN 6.4 mg/dL (0-1.0); PHOSPHORUS 3.9 mg/dL (2.5-4.6); POTASSIUM 4.7 mmol/L (3.5-5.0); TOTAL PROTEIN 7.1 g/dL (6.7-8.2)
[2021-06-12 17:44] LABS: PLATELET ESTIMATE, MANUAL NORMAL (130-450,000) (NORMAL); PLATELET MORPHOLOGY NORMAL APPEARANCE (NORMAL); SLIDE REVIEW? Indicated
[2021-06-12 17:45] LABS: WBC MORPHOLOGY (MULTIPLE) NORMAL APPEARANCE (NORMAL)
== END 2021-06-12 15:55 | disposition home or self-care (01) ==
LOC: LAB.R 15:54
PROVIDERS: ATTEND Urology
DX: K63.2 Fistula of intestine (principal); K91.2 Postsurgical malabsorption, not elsewhere classified; K90.89 Other intestinal malabsorption
CPT/HCPCS: 80053; 83735; 84100; 84478; 85025; 86140

== ENCOUNTER 2021-07-10 08:00 | Outpatient (CLI) | payer MEDICARE, OTHER ==
[2021-07-10 17:34] LABS: BASOPHILS # (AUTO) 0.1 10^3/uL (0.0-0.1); BASOPHILS % (AUTO) 0.7 %; EOSINOPHILS # (AUTO) 0.2 10^3/uL (0.0-0.7); EOSINOPHILS % (AUTO) 1.7 %; HCT - HEMATOCRIT 33.4 % (37.0-47.0); HGB - HEMOGLOBIN 9.4 g/dL (12.0-16.0); LYMPHOCYTES # (AUTO) 1.9 10^3/uL (1.5-3.5); LYMPHOCYTES % (AUTO) 13.6 %; MEAN CORPUSCULAR HEMOGLOBIN 21.2 pg (27.0-31.0); MEAN CORPUSCULAR HGB CONC 28.1 g/dL (32.0-36.0); MEAN CORPUSCULAR VOLUME 75.2 fL (81.0-99.0); MEAN PLATELET VOLUME 10.1 fL (7.9-10.8); MONOCYTES # (AUTO) 0.8 10^3/uL (0.0-1.0); MONOCYTES % (AUTO) 5.9 %; NEUTROPHILS # (AUTO) 10.9 10^3/uL (1.5-6.6); NEUTROPHILS % (AUTO) 77.6 %; PLT - PLATELET COUNT 481 10^3/uL (130-450); RED BLOOD COUNT 4.44 10^6/uL (4.20-5.40); RED CELL DISTRIBUTION WIDTH 18.9 % (12.0-15.0)
[2021-07-10 18:03] LABS: ALBUMIN 2.2 g/dL (3.2-5.5); ALBUMIN/GLOBULIN RATIO 0.4 (1.0-2.2); BILIRUBIN,TOTAL 0.5 mg/dL (0.2-1.0); CALCIUM 8.2 mg/dL (8.5-10.3); CRP - C-REACTIVE PROTEIN 4.6 mg/dL (0-1.0); MAGNESIUM 1.9 mg/dL (1.7-2.8); PHOSPHORUS 4.2 mg/dL (2.5-4.6); POTASSIUM 4.6 mmol/L (3.5-5.0); TOTAL PROTEIN 7.6 g/dL (6.7-8.2)
[2021-07-10 19:29] LABS: SLIDE REVIEW? Indicated
[2021-07-10 19:30] LABS: PLATELET ESTIMATE, MANUAL INCREASED (>450,000) (NORMAL); PLATELET MORPHOLOGY NORMAL APPEARANCE (NORMAL); WBC MORPHOLOGY (MULTIPLE) NORMAL APPEARANCE (NORMAL)
== END 2021-07-10 23:59 | disposition home or self-care (01) ==
LOC: LAB.R 08:00
PROVIDERS: ATTEND Urology
DX: K63.2 Fistula of intestine (principal); K91.2 Postsurgical malabsorption, not elsewhere classified
CPT/HCPCS: 80053; 83735; 84100; 84478; 85025; 86140

== ENCOUNTER 2021-07-18 16:23 | Outpatient (CLI) | payer MEDICARE, OTHER | END 2021-07-18 16:24 | disposition critical access hospital (66) | LOC: EMS 16:23 | DX: R06.02 Shortness of breath (principal); R05.9 Cough, unspecified; R50.9 Fever, unspecified; Z20.822 Contact with and (suspected) exposure to COVID-19 | CPT/HCPCS: A0425; A0429 ==

== ENCOUNTER 2021-07-18 17:03 | Inpatient (IN) | payer MEDICARE, OTHER ==
[2021-07-18] MEDS ORDERED: SODIUM CHLORIDE 0.9% 1,000 ML IV STA ×2 (17:36)
[2021-07-18] MEDS ORDERED: LORazepam 2 MG/ML VIAL IVP STA (17:36)
--- NOTE | 2021-07-18 17:40 | ED Physician Documentation ---
History of Present Illness - Stated complaint Stated Complaint: SOA - Chief complaint Chief Complaint: Resp - History obtained from History obtained from: Patient - History of Present Illness Pain level max: 0 Pain level now: 0 - Additonal information Additional information: Patient is an 81-year-old female with increasing cough over the past few days. Her tested positive for Covid yesterday. She states she has not had any fevers at home. She uses albuterol at home. She states that she had a "spot" on her right lung. She states that she had radiation that "made it fall off". She does not know what the spot was. She does not know if this was cancerous or not. Patient has a right-sided central line for home TPN. She has a Taveras catheter in place. She also has an ileostomy. Review of Systems Ten Systems: 10 systems reviewed and negative Constitutional: denies: Fever, Chills Throat: denies: Sore throat Cardiac: denies: Chest pain / pressure, Palpitations Respiratory: reports: Dyspnea, Cough, Wheezing GI: denies: Vomiting PD PAST MEDICAL HISTORY - Past Medical History Cardiovascular: None, Congestive heart failure Respiratory: Asthma, COPD Endocrine/Autoimmune: HyPOthyroidism, Other GI: Other : Other (bladder cancer history) HEENT: None Psych: None Musculoskeletal: None Derm: None - Past Surgical History Past Surgical History: Yes General: Cholecystectomy, Bowel surgery Ortho: Hip replacement /FOOT CUTTER: Hysterectomy, Oophrectomy, Other HEENT: Tonsil/Adenoidectomy, Other - Present Medications Home Medications: Ambulatory Orders Medication Instructions Recorded Confirmed Levothyroxine Sodium [Synthroid] 112 mcg PO QDAC 06/05/17 07/18/21 - Allergies Allergies/Adverse Reactions: Allergies Allergy/AdvReac Type Severity Reaction Status Date / Time codeine Allergy Nausea Verified 07/18/21 17:28 ciprofloxacin [From Cipro] AdvReac bones ache Verified 07/18/21 17:28 - Social History Does the pt smoke?: No Smoking Status: Former smoker Does the pt have substance abuse?: No - Immunizations Immunizations are current?: Yes PD ED PE NORMAL - Vitals Vital signs reviewed: Yes - General General: Alert and oriented X 3, Well developed/nourished, Other (Pursed lip breathing, tachypneic) - HEENT HEENT: Moist mucous membranes - Neck Neck: Supple, no meningeal sign - Cardiac Cardiac: RRR - Respiratory Respiratory: Other (Wheezing, tachypnea) - Abdomen Abdomen: Soft, Non tender, Non distended - Derm Derm: Warm and dry - Extremities Extremities: No edema - Neuro Neuro: Alert and oriented X 3 - Psych Psych: Normal mood, Normal affect Results - Vitals Vitals: Vital Signs - 24 hr 07/18/21 07/18/21 07/18/21 17:21 19:25 19:26 Temperature 37.7 C 37.2 C Heart Rate 122 H 121 H Respiratory 28 H 24 Rate Blood Pressure 149/59 H 133/59 H O2 Saturation 98 88 L 100 07/18/21 07/18/21 07/18/21 19:48 20:46 21:00 Temperature 37.2 C Heart Rate 113 H 118 H 119 H Respiratory 22 24 36 H Rate Blood Pressure 129/61 O2 Saturation 94 Oxygen O2 Source Nasal cannula - Labs Labs: Laboratory Tests 07/18/21 07/18/21 07/18/21 18:17 20:23 20:23 WBC 9.8 RBC 4.08 L Hgb 8.7 L Hct 29.8 L MCV 73.0 L MCH 21.3 L MCHC 29.2 L RDW 18.7 H Plt Count 334 MPV 9.1 Neut # (Auto) 8.1 H Lymph # (Auto) 1.0 L [place] # (Auto) 0.7 Eos # (Auto) 0.0 Baso # (Auto) 0.1 Absolute Nucleated RBC 0.00 Nucleated RBC % 0.0 Sodium 138 Potassium 4.7 Chloride 107 Carbon Dioxide 23 Anion Gap 8.0 BUN 30 H Creatinine 1.1 H Estimated GFR (MDRD) 48 L Glucose 111 H Calcium 8.2 L Total Bilirubin 0.6 AST 36 ALT 45 Alkaline Phosphatase 227 H Total Protein 8.1 Albumin 2.4 L Globulin 5.7 H Albumin/Globulin Ratio 0.4 L Lipase 36 Nasal Adenovirus (PCR) NOT DETECTED Nasal B. parapertussis DNA (PCR) NOT DETECTED Nasal Coronavir 229E PCR NOT DETECTED Nasal Coronavir HKU1 PCR NOT DETECTED Nasal Coronavir NL63 PCR NOT DETECTED Nasal Coronavir OC43 PCR NOT DETECTED Nasal Enterovir/Rhinovir PCR NOT DETECTED Nasal Influenza B PCR NOT DETECTED Nasal Influenza A PCR NOT DETECTED Nasal Parainfluen 1 PCR NOT DETECTED Nasal Parainfluen 2 PCR NOT DETECTED Nasal Parainfluen 3 PCR NOT DETECTED Nasal Parainfluen 4 PCR NOT DETECTED Nasal RSV (PCR) NOT DETECTED Nasal B.pertussis DNA PCR NOT DETECTED Nasal C.pneumoniae (PCR) NOT DETECTED Aurelio Human Metapneumo PCR NOT DETECTED Nasal M.pneumoniae (PCR) NOT DETECTED Nasal SARS-CoV-2 (PCR) DETECTED A - Rads (name of study) cxr Radiology: Final report received, EMP read contemporaneously, See rad report (no acute disease) PD MEDICAL DECISION MAKING - ED course Complexity details: reviewed results, re-evaluated patient, considered differential, d/w patient, d/w building performance consultant ED course: Patient is an 81-year-old female who presents to the emergency department with hypoxia, cough, tachypnea, tachycardia. She does use inhalers at home. She is Covid positive. She is requiring supplemental oxygen. She drops to 87 to 88% on room air fairly rapidly in the emergency department. No indication for antibiotics. She was given a dose of steroids for the COPD. She was also given nebulizer treatments. Continues to be hypoxic. Will need admission. Discussed the case with Dr. Gatica, hospitalist who accepts This document was made in part using voice recognition software. While efforts are made to proofread this document, sound alike and grammatical errors may occur. Departure - Departure Disposition: 66 [facility] DC/Xfer Clinical Impression: Hypoxia, COVID-19, Altered bowel elimination due to intestinal ostomy, Tachypnea, Tachycardia COPD (chronic obstructive pulmonary disease) Qualifiers: COPD type: unspecified COPD Qualified Code(s): J44.9 - Chronic obstructive pulmonary disease, unspecified Condition: Stable
--- NOTE | 2021-07-18 18:26 | XRAY Report ---
PROCEDURE: Chest 1 View X-Ray INDICATIONS: chest pain TECHNIQUE: One view of the chest was acquired. COMPARISON: CXR 03/16/2021, 01/05/2021, 06/11/2017. FINDINGS: Surgical changes and devices: Right-sided central venous line with the catheter tip at the right atri um. Wire projecting over the right lateral chest wall. Lungs and pleura: No pleural effusions or pneumothorax. Calcified granuloma in the right midlung fie ld appears unchanged. Curvilinear opacity in the left midlung is also unchanged and likely represents scarring or atelectasis. Mediastinum: Mediastinal contours appear unchanged. Heart size is normal. Bones and chest wall: No suspicious bony lesions. Overlying soft tissues appear unremarkable. IMPRESSION: No acute cardiopulmonary abnormality. Reviewed by: Tawanda Mathews MD on 07/18/2021 6:25 PM PDT Approved by: Tawanda Mathews MD on 07/18/2021 6:25 PM PDT Station ID: [id number]
[2021-07-18 19:27] LABS: CORONAVIRUS 229E-RESP PCR NOT DETECTED; CORONAVIRUS HKU1-RESP PCR NOT DETECTED; CORONAVIRUS NL63-RESP PCR NOT DETECTED; CORONAVIRUS OC43-RESP PCR NOT DETECTED
[2021-07-18 19:29] LABS: B. PARAPERTUSSIS- RESP PCR PAN NOT DETECTED; B. PERTUSSIS- RESP PCR PANEL NOT DETECTED; C. PNEUMONIAE- RESP PCR PANEL NOT DETECTED; HUMAN METAPNEUMOVIRUS NOT DETECTED; INFLUENZA A- RESP PCR PANEL NOT DETECTED; INFLUENZA B - RESP PCR PANEL NOT DETECTED; M. PNEUMONIAE- RESP PCR PANEL NOT DETECTED; PARAINFLUENZA VIRUS 1 NOT DETECTED; PARAINFLUENZA VIRUS 2 NOT DETECTED; PARAINFLUENZA VIRUS 3 NOT DETECTED; PARAINFLUENZA VIRUS 4 NOT DETECTED; RHINOVIRUS/ENTEROVIRUS NOT DETECTED; RSV- RESP PCR PANEL NOT DETECTED; SARS-CoV-2 -RESP PCR PANEL DETECTED
[2021-07-18] MEDS ORDERED: ALBUTEROL 1 PUFF INH STA (19:29)
[2021-07-18] MEDS ORDERED: predniSONE 20 MG TABLET PO STA (19:29)
[2021-07-18 20:29] LABS: BASOPHILS # (AUTO) 0.1 10^3/uL (0.0-0.1); BASOPHILS % (AUTO) 0.5 %; EOSINOPHILS % (AUTO) 0.2 %; HCT - HEMATOCRIT 29.8 % (37.0-47.0); HGB - HEMOGLOBIN 8.7 g/dL (12.0-16.0); LYMPHOCYTES % (AUTO) 9.7 %; MEAN CORPUSCULAR HEMOGLOBIN 21.3 pg (27.0-31.0); MEAN CORPUSCULAR HGB CONC 29.2 g/dL (32.0-36.0); MEAN PLATELET VOLUME 9.1 fL (7.9-10.8); MONOCYTES # (AUTO) 0.7 10^3/uL (0.0-1.0); MONOCYTES % (AUTO) 6.9 %; NEUTROPHILS # (AUTO) 8.1 10^3/uL (1.5-6.6); PLT - PLATELET COUNT 334 10^3/uL (130-450); RED BLOOD COUNT 4.08 10^6/uL (4.20-5.40); RED CELL DISTRIBUTION WIDTH 18.7 % (12.0-15.0); WHITE BLOOD COUNT 9.8 x10^3/uL (4.8-10.8)
[2021-07-18] MEDS ORDERED: IPRATROPIUM/ALBUTEROL 3 ML NEB INH STA (20:32)
[2021-07-18 20:40] LABS: ALBUMIN 2.4 g/dL (3.2-5.5); ALBUMIN/GLOBULIN RATIO 0.4 (1.0-2.2); BILIRUBIN,TOTAL 0.6 mg/dL (0.2-1.0); CALCIUM 8.2 mg/dL (8.5-10.3); CREATININE 1.1 mg/dL (0.4-1.0); POTASSIUM 4.7 mmol/L (3.5-5.0); TOTAL PROTEIN 8.1 g/dL (6.7-8.2)
[2021-07-18] MEDS ORDERED: NIRMATRELVIR/RITONAVIR PREPACK PO STA (20:58)
[2021-07-18] MEDS ORDERED: oxyCODONE 5 MG TABLET PO PRN (22:08)
[2021-07-18] MEDS ORDERED: ACETAMINOPHEN 325 MG TABLET PO PRN (22:08)
[2021-07-18] MEDS ORDERED: ONDANSETRON 4 MG/2 ML VIAL IVP PRN (22:08)
[2021-07-18] MEDS ORDERED: ONDANSETRON ODT 4 MG TABLET TL PRN (22:08)
[2021-07-18] MEDS ORDERED: ALBUTEROL NEB 2.5 MG/3 ML INH PRN (22:36)
--- NOTE | 2021-07-19 00:03 | ADVANCE CARE PLANNING NOTE ---
Advance Care Planning - Planning Encounter Date: 07/19/21 Time: 00:01 Purpose: establish care goals and code status Parties in Attendance: on phone, patient, hospitalist Decisional Capacity of the Patient: alert, disoriented to place, but able to state wishes that endorses - Diagnosis for Encounter (1) Dementia Qualifiers: Dementia type: Alzheimer's Alzheimer's disease onset: late-onset Dementia behavioral disturbance: without behavioral disturbance Qualified Code(s): G30.1 - Alzheimer's disease with late onset; F02.80 - Dementia in other diseases classified elsewhere without behavioral disturbance Summary: Context of a patient who has had catastrophic complications from the treatment of remote cervical cancer from 1965. - Encounter Subjective/Patient's Story: She is retired nurse. to her of over 62 years [place] to self as an active person. That even with all of her multiple abdominal problems due to her complications of treatment for cervical cancer in 1965, she persevered. Everything really started going really downhill when she fell and broke her hip in the fall 2014. A subsequent fall and pelvic fracture where she drove a pin from the hip repair into the acetabulum was the beginning of the end. She is continue to have problems due to her bowels and ureter. But pain in the hip has caused her to become less and less mobile to the point that her calls her "housebound". She is in constant pain. She is on constant TPN because she cannot eat normal food due to the complications of abdominal surgeries. She has been having problems with memory loss over the last couple of years but in the last 5 to 6 months much more severe. In addition to the memory, she has been having problems with increasing phlegm, increasing cough, increasing shortness of breath. He attributed somehow to the laser surgery she had to the right lung 2 and half years ago. He says it was either a new metastatic disease to the lung or a primary. He is not quite clear. Because of that they already filled out a POLST form for DO NOT RESUSCITATE status. Limited interventions, but no intubation, no CPR. Lately she and he have been talking about the diminished quality of her life such as it is. She can no longer garden. She cannot drive a car. She cannot focus to read. Her memory is bad. She is getting more despondent about it all. Objective/Medical Story: This is a patient who had some type of lung neoplasm treated 2-1/2 years ago. It is unclear if this was a primary lung neoplasm or whether it was metastatic disease from her remote cervical cancer from 1965 that recurred in 1991. For 1- 1/2 years she did "okay" after the treatment. She is described as having emphysema from her remote cigarettes that she stop smoking in approximately 1989. But she is not on oxygen. She did not have any need for bronchodilators either. Starting 5 or 6 months ago she began having increasing shortness of breath, increasing cough and increasing production of mucus. At times is quite copious and overwhelming. She and her are careful about their exposure because of her immunocompromised status. He goes out for groceries and she basically stays home. He became ill last week, and was diagnosed with Covid on Saturday (today is Saturday). He states that he kept a "close eye on her" this last weekend and she seemed to be doing okay. Her lung problems were stable. Then for the last 2 days she has been complaining of increasing fatigue, chills, coldness, but at the same time felt feverish. Cough was getting worse. No hemoptysis. No new GI symptoms. Today she was so fatigued that her called EMS.. This morning she became so short of breath. With the emergency room provider she was tachycardic to a heart rate was 122. Temperature was 37.7. Blood pressure 149/59. Respiratory rate 28. 88% on room air requiring 3 L to saturate to 94%. The emergency room provider described her as a fatigued, confused elderly female. She did respond to nasal cannula oxygen and tachypnea and tachycardia improved. Chest x-ray had no acute cardiopulmo nary abnormality. She does have the right port in place with the catheter tip at the right atrium. Calcified granuloma in the right midlung. Curvilinear opacity in the left midlung is unchanged. These are compared to chest x-rays from December and March 2021.Laboratory studies showed her to have acute kidney insufficiency. Baseline creatinine is 0.9 and she is 1.1. Baseline GFR is 60 and she is 48 today. Albumin is chronically low and she is 2.4 today. Total protein 8.1. White cell count 9.8 and hemoglobin is 8.7. She is usually chronically anemic with a hemoglobin of 9.3-9.5. She is Covid positive. Urinalysis has a large amount of leukocyte Estrace, greater than 25 white cells, 6-10 red cells, rare squamous, few bacteria. We are now placing her in inpatient status for acute hypoxia due to Covid pneumonia and possible early COPD exacerbation 1. Cervical cancer 1965. Status post complete hysterectomy and cobalt treatment. 1991 anterior pelvic exoneration for recurrent stage III cervical cancer. 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 Also had multiple enterocutaneous fistulas starting in 2014 with multiple hospitalizations due to significant network of adhesions and fragile tissues. Another significant complication was bladder cancer attributed to radiation therapy for the cervical cancer. Amanda pouch created for urinary diversion. Most recent complication is mets to the right lung June 2014, status post radiation therapy: a. anterior pelvic exenteration and creation of [place] pouch, urinary diversion 1991 b. percutaneous stent placement 1998 c.percutaneous drainage of perinephric abscess December 1999 d. Removal and replacement of obstructive left ureteral stent December 1999 e. Percutaneous neobladder cystoscopy and cystoscopy lithoplasty September 2000 f. Percutaneous removal and replacement of left double-J ureteral stent September 2000 g. Percutaneous antegrade double-J left ureteral stent in 2005 h. Percutaneous neobladder and cystoscopy and retrograde enterotomy September 2006 i. Cystoplasty lysis of pelvic adhesions and enterotomy repair June 2015 j. Fistula resection, small bowel resection, and lysis of adhesions September 2015 k. Exploratory laparotomy, removal of necrotic small bowel, anastomosis, ileostomy, moved [place] pouch location, colonic mucous fistula formation October 2015 2. Thyroid cancer with thyroidectomy 1978 3. Osteoarthritis with right hip replacement 2013, fall with trochanteric left femoral fracture November 2014 ([facility]), fall with pelvic fracture 2015 and dislodged left hip pin, reconstructed 4. Small bowel obstruction June 2014 with subsequent small bowel resection, ileostomy, and starting of maintenance TPN 5. Chronic protein calorie malnutrition. Admitted November 2015 for dehydration, failure to thrive, IV fluids. Usual baseline weight is 160. By June 2015 was 143 pounds 6. Depression, Anxiety and panic regarding health 7. Chest wall abscess due to port May 2017 8. C. difficile enteritis December 2015 9. History of coccyx pressure ulcers 10. COPD with use of bronchodilators, intubated after pelvic fracture postop 7 days Goals of Care: She would like to return to home as soon as possible. Her would like to move forward with focusing on comfort measures. They would like her tool room supervisor, and primary care provider kept up-to-date with what is going on. Plan: I have asked to bring in POLST form from home. The one we have in our EMR has DNR, comfort measures only. He thinks that it is still limited intervention. During the stay, we may have to fill out a new one depending on what she would like. I will send a copy of her history and physical to her tool room supervisor, and Dr. Cooper I will asked Dr. Valdez to refer her for palliative care follow-up in the outpatient setting Code Status: Do Not Attempt Resuscitation Time spent on advance care plannin minutes
--- NOTE | 2021-07-19 00:17 | HISTORY & PHYSICAL EXAMINATION ---
Chief Complaint - Chief Complaint Chief Complaint: short of breath History of Present Illness - Admitted From Admitted From:: home - History Obtained From Records Reviewed: [facility] History obtained from: patient, and Dr. Steven Exam Limitations: she has mild dementia worsening over 6 months - History of Present Illness HPI Comment/Other: This is a patient who had some type of lung neoplasm treated 2-1/2 years ago. It is unclear if this was a primary lung neoplasm or whether it was metastatic disease from her remote cervical cancer from 1965 that recurred in 1991. For 1- 1/2 years she did "okay" after the treatment. She is described as having emphysema from her remote cigarettes that she stop smoking in approximately 1989. But she is not on oxygen. She did not have any need for bronchodilators either. Starting 5 or 6 months ago she began having increasing shortness of breath, increasing cough and increasing production of mucus. At times is quite copious and overwhelming. She and her are careful about their exposure because of her immunocompromised status. He goes out for groceries and she basically stays home. He became ill last week, and was diagnosed with Covid on Saturday (today is Saturday). He states that he kept a "close eye on her" this last weekend and she seemed to be doing okay. Her lung problems were stable. Then for the last 2 days she has been complaining of increasing fatigue, chills, coldness, but at the same time felt feverish. Cough was getting worse. No hem optysis. No new GI symptoms. Today she was so fatigued that her called EMS.. This morning she became so short of breath. With the emergency room provider she was tachycardic to a heart rate was 122. Temperature was 37.7. Blood pressure 149/59. Respiratory rate 28. 88% on room air requiring 3 L to saturate to 94%. The emergency room provider described her as a fatigued, confused elderly female. She did respond to nasal cannula oxygen and tachypnea and tachycardia improved. Chest x-ray had no acute cardiopulmonary abnormality. She does have the right port in place with the cat heter tip at the right atrium. Calcified granuloma in the right midlung. Curvilinear opacity in the left midlung is unchanged. These are compared to chest x-rays from December and March 2021.Laboratory studies showed her to have acute kidney insufficiency. Baseline creatinine is 0.9 and she is 1.1. Baseline GFR is 60 and she is 48 today. Albumin is chronically low and she is 2.4 today. Total protein 8.1. White cell count 9.8 and hemoglobin is 8.7. She is usually chronically anemic with a hemoglobin of 9.3-9.5. She is Covid positive. Urinalysis has a large amount of leukocyte Estrace, greater than 25 white cells, 6-10 red cells, rare squamous, few bacteria. We are now placing her in inpatient status for acute hypoxia due to Covid pneumonia and possible early COPD exacerbation 1. Cervical cancer 1965. Status post complete hysterectomy and cobalt treatment. 1991 anterior pelvic exoneration for recurrent stage III cervical cancer. 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 Also had multiple enterocutaneous fistulas starting in 2014 with multiple hospitalizations due to significant network of adhesions and fragile tissues. Another significant complication was bladder cancer attributed to radiation therapy for the cervical cancer. Amanda pouch created for urinary diversion. Most recent complication is mets to the right lung June 2014, status post radiation therapy: a. anterior pelvic exenteration and creation of Amanda pouch, urinary diversion 1991 b. percutaneous stent placement 1998 c.percutaneous drainage of perinephric abscess December 1999 d. Removal and replacement of obstructive left ureteral stent December 1999 e. Percutaneous neobladder cystoscopy and cystoscopy lithoplasty September 2000 f. Percutaneous removal and replacement of left double-J ureteral stent September 2000 g. Percutaneous antegrade double-J left ureteral stent in 2005 h. Percutaneous neobladder and cystoscopy and retrograde enterotomy September 2006 i. Cystoplasty lysis of pelvic adhesions and enterotomy repair June 2015 j. Fistula resection, small bowel resection, and lysis of adhesions September 2015 k. Exploratory laparotomy, removal of necrotic small bowel, anastomosis, ileostomy, moved Haakon pouch location, colonic mucous fistula formation October 2015 2. Thyroid cancer with thyroidectomy 1978 3. Osteoarthritis with right hip replacement 2013, fall with trochanteric left femoral fracture November 2014 (ORIF), fall with pelvic fracture 2015 and dislodged left hip pin, reconstructed 4. Small bowel obstruction June 2014 with subsequent small bowel resection, ileostomy, and starting of maintenance TPN 5. Chronic protein calorie malnutrition. Admitted November 2015 for dehydration, failure to thrive, IV fluids. Usual baseline weight is 160. By June 2015 was 143 pounds 6. Depression, Anxiety and panic regarding health 7. Chest wall abscess due to port May 2017 8. C. difficile enteritis December 2015 9. History of coccyx pressure ulcers 10. COPD with use of bronchodilators, intubated after pelvic fracture postop 7 days History - Past Medical History Respiratory: reports: Asthma, COPD, Other (right lung tumor tx w laser 2.5 yrs ago) Neuro: reports: Dementia (started 2 yrs ago and getting worse last 6 months) Endocrine/Autoimmune: reports: HyPOthyroidism, Other GI: reports: Other SAND SLINGER OPERATOR: reports: Other (m, cervical cancer) : reports: Indwelling catheter, Other (bladder cancer history) HEENT: reports: None Psych: reports: Depression, Anxiety, Panic attacks, Post traumatic stress disorder Musculoskeletal: reports: Osteoarthritis, Osteoporosis Derm: reports: None MRSA Hx?: No Other Past Medical History: Chronic Borden catheter, Illeostomy - Past Surgical History General: reports: Cholecystectomy, Bowel surgery (multiple) Ortho: reports: Hip replacement ( and repair after fall/fracture) /SAND SLINGER OPERATOR: reports: Hysterectomy, Oophrectomy, Other (Haakon pouch) HEENT: reports: Tonsil/Adenoidectomy, Other (thyroidectomy) - Family & Social History Family History Comment/Other: Parents of old age, does not remember any major medical illnesses. Daughters are healthy Living arrangement: At home Living Situation: With spouse/s.o. Social History Notes: She is a retired nurse. 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 She quit smoking 1 pack/day in 1989. She has no history of alcohol abuse or recreational substance abuse. Her is her primary caregiver. - Substance History Use: Uses substance without health or social issues: NONE Abuse: Recurrent use of substance despite neg consequences: NONE Dependence: Experiences withdrawal or developed tolerances: NONE - POLST Patient has POLST: Yes POLST Status: DNR (On her refrigerator door) Meds/Allgy - Home Medications Home Medications: Ambulatory Orders Medication Instructions Recorded Confirmed Levothyroxine Sodium [Synthroid] 112 mcg PO QDAC 06/05/17 07/18/21 - Allergies Allergies/Adverse Reactions: Allergies Allergy/AdvReac Type Severity Reaction Status Date / Time codeine Allergy Nausea Verified 07/18/21 17:28 ciprofloxacin [From Cipro] AdvReac bones ache Verified 07/18/21 17:28 Review of Systems - Constitutional Constitutional: reports: Fatigue, Fever, Chills, Malaise, Weakness, Poor appetite, Weight loss - Eyes Eyes: reports: Blurred vision - Ears, Nose & Throat Ears, Nose & Throat: reports: Sore throat, Hoarseness. denies: Hearing loss, Hearing aids, Tinnitus - Cardiovascular Cariovascular: reports: Exertional dyspnea, Decr. exercise tolerance. denies: Irregular heart rate, Palpitations, Chest pain - Respiratory Respiratory: reports: Cough, Sputum production, SOB at rest, SOB with exertion, Other (2.5 years ago right lung mass, status post laser. Okay x1.5 years. 5 to 6 months ago terrible mucus production and increased work of breathing. This last week much worse). denies: Hemoptysis - Gastrointestinal Gastrointestinal: denies: Abdominal pain, Abdominal distention, Constipation, Diarrhea, Change in bowel habits, Rectal bleeding - Genitourinary Genitourinary: reports: Other (A urinary diversion with poorly fitting borden with on right mid to right upper quadrant of abdomen) - Musculoskeletal Musculoskeletal: reports: Stiffness, Joint pain, Other (Is basically immobile. Spends most of her time in bed or chair. Too much pain on a daily basis especially from left hip and left pelvic fracture history) - Integumentary Integumentary: reports: Dryness (Severe skin flaking lower extremities. Not able to get a regular bath for many months now. She is afraid of getting her port wet in her ileostomy wet) - Neurological Neurological: reports: General weakness, Memory problems, Incoordination - Psychiatric Psychiatric: reports: Depression, Anxiety. denies: Suicidal (But lately wishing that the "end would come" with her ), Hallucinations, Homicidal - Endocrine Endocrine: reports: Intolerance to cold (this weekend). denies: Polyuria, Polydypsia, Polyphagia - Hematologic/Lymphatic Hematologic/Lymphatic: reports: Anemia, Bruising. denies: Petechiae, Blood clots, Lymphadenopathy Prior Level of Functionality: She is unable to weight-bear on the left hip. Uses a wheelchair, and stays in chair or bed all day long. Sleeps 12 to 14 hours a night. She describes her self as a very active person who used to garden. Ever since her first fall and fracture of left hip in 2014, she feels that her life is slowly deteriorated and that she has no quality of life now. This makes her tearful and depressed. Exam - Vital Signs Reviewed Vital Signs: Yes Vital Signs: Vital Signs x48h Temp Pulse Resp BP Pulse Ox 07/18/21 23:00 37.2 C 115 H 35 H 104/78 93 07/18/21 21:00 37.2 C 119 H 36 H 129/61 94 07/18/21 20:46 118 H 24 07/18/21 19:48 113 H 22 07/18/21 19:26 37.2 C 121 H 24 133/59 H 100 07/18/21 19:25 88 L 07/18/21 17:21 37.7 C 122 H 28 H 149/59 H 98 - Physical Exam General Appearance: positive: Alert, Mild distress (panting but no longer pursed lip breathing in ER.), Other (tearful and forgetful, Elderly white female. Looks stated age) Eyes Bilateral: positive: PERRL, EOMI ENT: positive: Dry mucous membranes, Other (Bilateral temporal wasting) Neck: positive: No JVD, Lymphadenopathy (R), Lymphadenopathy (L). negative: Stiff neck, Carotid bruit Respiratory: positive: Other (inspiratory whistle upper anterior chest left > right, no cough, no phlem tyson up during exam, mildly tachypneic) Cardiovascular: positive: Regular rate & rhythm, Tachycardia. negative: Systolic murmur, Gallop/S4, Friction rub Peripheral Pulses: positive: 0 Abdomen: positive: Non-tender, No organomegaly, Nml bowel sounds, No distention, Other (R mid abd with borden leaking at skin site where Haakon pouch is. Ileostomy is almost suprapub and to the left slightly. Dark liquid in bag.) Skin: positive: Other (Dry and flaky. Moderately severe below the knees. Right leg worse than left leg. Has not had a bath in months. Feet are quite cold) Extremities: positive: Pedal edema (Left worse than right, calves and feet), Other Neurologic/Psychiatric: positive: CN's nml (2-12), Motor nml (except for weakness, generalized, nonfocal), Disoriented to place (she thinks she's in [facility]), Disoriented to time, Weakness, Depressed mood/affect (tearful). negative: Facial droop, Slurred/abnml speech Conclusion/Plan - Problem List (1) Acute respiratory failure with hypoxia Conclusion/Plan: She is not on oxygen at home but does have COPD. I do not think she is an acute COPD exacerbation. She does have COVID-19 by screening but no pneumonia on chest x-ray. Her chest x-ray may be lagging behind with objective findings at this time. Plan: Inpatient admission Treat causes of the hypoxia (2) COVID-19 Conclusion/Plan: is home with COVID-19. This amilcar lady has multiple factors that would make her at risk for morbidity and mortality from Covid. Chest x-ray is negative at this time. Plan: Remdesivir protocol for 5 days Decadron 6 mg for 10 days (3) COPD (chronic obstructive pulmonary disease) Conclusion/Plan: She is an extobacco smoker. Quit approximately 1989. She and her husban are asking me to make sure that her traffic operator, Dr. Salvador Ceballos is notified. She will already be getting steroids due to the Covid status. We will add DuoNeb via nebulizer 3 times daily with albuterol as needed Qualifiers: COPD type: emphysema Emphysema type: unspecified Qualified Code(s): J43.9 - Emphysema, unspecified (4) Renal insufficiency Conclusion/Plan: Baseline creatinine 0.9. She is 1.1 tonight. Will hydrate with IV fluids overnight and recheck tomorrow morning. (5) Protein-calorie malnutrition, mild Conclusion/Plan: As evidenced by low albumin that is chronic, as well as bilateral temporal wasting. She usually gets TPN for the week delivered on Saturday. And then every night her gives her her TPN bag. Our pharmacy policy does not allow TPN from home infusion services to be used here. She will start with our TPN here in [place] get a nutrition consult. (6) Complications of immobility Conclusion/Plan: She fell and broke her hip in the fall 2014. That was repaired. Then in the spring 2015 she fell again and was told that it was a simple small pelvic fracture. However with continued pain she was reevaluated and found to have driven one of the pins from the hip repair into the acetabulum. As such she was transferred to [facility] and had a repair there. Ever since then she has been unable to walk normally. Pain has caused her to be for the most part chair bound or bedbound and in the end, housebound. Plan: PT and OT eval. I do not know if it would help for her to be seen at home as well for PT and OT (7) Anemia Conclusion/Plan: This presents in a patient who is on chronic TPN and as such may not have enough supplements in her back. This woman is also had small bowel resection and may have resected the terminal ileum so that iron or B12 is not being absorbed well. Plan: Check anemia panel for etiologies to see if we can supplement Qualifiers: Anemia type: unspecified type Qualified Code(s): D64.9 - Anemia, unspecified (8) Anxiety and depression Conclusion/Plan: Her is emotionally exhausted and physically "done in". He and she have been discussing how much she is physically deteriorated in the last year. They have also started recognizing that her memory loss is getting precipitously worse over the last 6 months. She is housebound. Patient is requesting DNR status. We will also ask her palliative care consultation when she goes home. Please see advance care planning conversation under separate dictation (9) Hypothyroid Conclusion/Plan: check TSH Qualifiers: Hypothyroidism type: postoperative Qualified Code(s): E89.0 - Postprocedural hypothyroidism (10) History of urinary diversion procedure Conclusion/Plan: She has an Haakon Pouch which is a continent urinary reservoir, meaning no bag is necessary to store the urine outside the body. Instead of a bag, the right colon is removed from the rest of the bowel and re-fashioned into a pouch that can hold 600mL of fluid (equivalent to about two soda cans). UA has bacteria but I don't think it is clinically relevant at this time. I think it's colonized. will bring in supplies for the borden as well as for the ileostomy. Will ask ostomy nurse to oversee instructions for our nurses since she is prone to skin breakdown and has a difficult anatomy. (11) Assistance needed for personal hygiene Conclusion/Plan: Because of her immobility, her has not been able to get her up and safely in a tub or shower for many many months now. She is afraid of falling even with a shower chair. The 2 of them are not in agreement with 1 another. She states that he is the barrier to getting regular help in the home, that he does not want it. Her states that she is the barrier and does not likes "strangers" in her house. Due to the condition of her legs, I explained to the that she really needs a bath at least once a week. We will see if physical therapy and Occupational Therapy can evaluate her and help us with suggestions. will also ask social work to see if they qualify for home caretaker. (12) Dementia Conclusion/Plan: To her physical pain and suffering, she is now having problems with memory loss. Is been present for a couple of years but in the last few months much worse. She and have been talking about this additional burden on top of her already numerous medical problems. Again, he is interested in moving forward wi th discussing advance care planning, focusing on comfort for her sake. Qualifiers: Dementia type: Alzheimer's Alzheimer's disease onset: late-onset Dementia behavioral disturbance: without behavioral disturbance Qualified Code(s): G30.1 - Alzheimer's disease with late onset; F02.80 - Dementia in other diseases classified elsewhere without behavioral disturbance - Lab Results Lab results reviewed: Yes Fish Bones: 07/18/21 20:23 07/18/21 20:23 - Diagnostic Imaging Results Diagnostic Imaging Results: positive: Final report reviewed Diagnostic Imaging Results Comments: Surgical changes with right-sided central venous line with catheter tip at the right atrium. Wire projecting over the right lateral chest wall. No pleural effusions or pneumothorax. Calcified granuloma in the right midlung. Curvilinear opacity left midlung. Mediastinal contour unchanged. Heart size normal.
[2021-07-19] MEDS: SODIUM CHLORIDE 0.9% 1,000 ML IV SCH ×2 (00:36→11:44)
[2021-07-19] MEDS: SODIUM CHLORIDE FLUSH 0.9% 10 ML SYRINGE IVP SCH ×3 (00:36→15:38)
[2021-07-19] MEDS: LEVOTHYROXINE 112 MCG TABLET PO SCH (06:20)
[2021-07-19] MEDS: ZINC OXIDE 20% OINT 30 GM TUBE TOP PRN (06:20)
[2021-07-19] MEDS ORDERED: REMDESIVIR 100MG VIAL 200 MG in SODIUM CHLORIDE 0.9% 250 ML IV ONE ×2 (07:00→09:00)
[2021-07-19] MEDS ORDERED: NON FORMULARY MED (Remdesivir 200 MG) IVP ONE (07:00)
[2021-07-19] MEDS ORDERED: IOVERSOL 320 100 ML VIAL IVP ONE ×2 (07:46→09:39)
[2021-07-19] MEDS: DEXAMETHASONE 4 MG/ML VIAL IVP SCH (09:13)
[2021-07-19] MEDS: ENOXAPARIN 40 MG/0.4 ML SYRINGE SUBQ SCH (09:14)
--- NOTE | 2021-07-19 10:28 | CT Report ---
PROCEDURE: ANGIO CHEST W/WO INDICATIONS: Dyspnea. Hypoxia. Normal CXR. CONTRAST: IV CONTRAST: Optiray 320 ml: 80 PO CONTRAST: *NO PO CONTRAST TECHNIQUE: After the administration of intravenous contrast, 2 mm axial images were acquired from the pulmonary apices to the posterior costophrenic angles during the arterial phase. In addition, 1 mm lung kernel and 5 mm soft tissue kernel reconstructions were performed. 3-dimensional coronal oblique maximum int ensity projection (MIP) reformats, 8 mm axial MIP, and 5 mm coronal and sagittal MPR reformats were t hen performed through the thorax. For radiation dose reduction, the following was used: automated exp osure control, adjustment of mA and/or kV according to patient size. COMPARISON: Chest x-ray 07/18/2021 FINDINGS: Image quality: Excellent. Pulmonary arteries: Pulmonary arteries are normal in size, and demonstrate no intraluminal filling d efects to suggest central pulmonary embolism. Lungs and pleura: There is an overall appearance of increased pulmonary vascularity. Minimal to mild effusions are present. Patchy opacity is noted in the left perihilar region. No pneumothorax. Centra l and peripheral airways are patent. Mediastinum: Heart size is normal, without pericardial effusion. Borderline prominent mediastinal ly mph nodes are present. Thoracic aorta is normal in caliber and enhancement. Esophagus is normal in c aliber, without hiatal hernia. Bones and chest wall: No suspicious bony lesions. Ribs and thoracic spine appear intact throughout. No axillary or supraclavicular adenopathy. The thyroid is poorly visualized. Abdomen: Partially visualized atrophic left kidney with cysts are noted. Liver and spleen appear enl arged, although not completely visualized. Otherwise, visualized upper abdominal solid organs appear normal in the early arterial phase of enhancement. IMPRESSION: Increased vascular suggestive of edema. No pulmonary embolism. Minimal to mild bilateral effusions. Patchy opacity in the left perihilar region. This could be related to atelectasis or potentially pneu monia. However, given appearance other etiologies of mass lesion cannot be definitively excluded. Rec ommend short interval imaging follow-up with CT chest document resolution after appropriate therapy. CLINICAL RECOMMENDATION STATEMENTS: In patients <35 years with an ITN detected on CT, MRI, or extrathyroidal ultrasound, the Committee re commends further evaluation with dedicated thyroid ultrasound if the nodule is "e1 cm and has no susp icious imaging features, and if the patient has normal life expectancy. In patients "e35 years with an ITN detected on CT, MRI, or extrathyroidal ultrasound, the Committee r ecommends further evaluation with dedicated thyroid ultrasound if the nodule is "e1.5 cm and has no s uspicious imaging features, and if the patient has normal life expectancy. (ACR, 2014) Reviewed by: Maryjane Landin MD on 07/19/2021 10:27 AM PDT Approved by: Maryjane Landin MD on 07/19/2021 10:27 AM PDT Station ID: [id number]
[2021-07-19] MEDS: ALBUTEROL 1 PUFF INH PRN (13:26)
[2021-07-19] MEDS: INSULIN ASPART 300 UNIT/3 ML PEN SUBQ SCH ×3 (14:41→21:36)
--- NOTE | 2021-07-19 18:12 | PROVIDER PROGRESS NOTE ---
Subjective - Prog Note Date Prog Note Date: 07/19/21 - Subjective Subjective: She feels improved compared to last night. Still feels short of breath at times and has an occasional cough. She feels like she is most short of breath just at night and in the early mornings. Current Medications - Current Medications Current Medications: Active Medications Acetaminophen (Acetaminophen 325 Mg Tablet) 650 mg PO Q4HR PRN PRN Reason: Pain 1 to 4, or Fever Albuterol (Albuterol 1 Puff) 2 puffs INH Q4HR PRN PRN Reason: Wheezing Stop: 07/26/21 07:00 Last Admin: 07/19/21 13:26 Dose: 2 puffs Dexamethasone (Dexamethasone 4 Mg/Ml Vial) 6 mg IVP DAILY [facility] Last Admin: 07/19/21 09:13 Dose: 6 mg Enoxaparin Sodium (Enoxaparin 40 Mg/0.4 Ml Syringe) 40 mg SUBQ DAILY [facility] Last Admin: 07/19/21 09:14 Dose: 40 mg Remdesivir 100 mg/ Sodium (Chloride) 100 mls @ 200 mls/hr IV DAILY [facility] Stop: 07/23/21 09:29 Multivitamins 10 ml/ TRACE ELEMENTS 1 ml/ Amino Ac/Electrol/Dextrose/Calcium 2,011 mls @ 83 mls/hr IV Q24H [facility]; Protocol Fat Emulsion Intravenous (Intralipid 20%) 250 mls @ 21 mls/hr IV Q24H [facility] Insulin Aspart (Insulin Aspart 300 Unit/3 Ml Pen) 1 - 5 unit SUBQ 0800,1200,170 0,2100 [facility]; Protocol Last Admin: 07/19/21 17:03 Dose: Not Given Levothyroxine Sodium (Levothyroxine 112 Mcg Tablet) 112 mcg PO QDAC [facility] Last Admin: 07/19/21 06:20 Dose: 112 mcg Multi-Ingredient Ointment (Zinc Oxide 20% Oint 30 Gm Tube) 1 applic TOP PRN PRN PRN Reason: Skin Care Last Admin: 07/19/21 06:20 Dose: 1 applic Ondansetron HCl (Ondansetron Odt 4 Mg Tablet) 4 mg TL Q6HR PRN PRN Reason: Nausea / Vomiting Ondansetron HCl (Ondansetron 4 Mg/2 Ml Vial) 4 mg IVP Q6HR PRN PRN Reason: Nausea / Vomiting Oxycodone HCl (Oxycodone 5 Mg Tablet) 5 mg PO Q4HR PRN PRN Reason: Pain 5 to 7 Sodium Chloride (Sodium Chloride Flush 0.9% 10 Ml Syringe) 10 ml IVP PRN PRN PRN Reason: NEEDED PER PROVIDER ORDERS Sodium Chloride (Sodium Chloride Flush 0.9% 10 Ml Syringe) 10 ml IVP 01 00,0900,1700 [facility] Last Admin: 07/19/21 15:38 Dose: 10 ml Levothyroxine Sodium [Synthroid] 112 mcg PO QDAC 06/05/17 Albuterol Sulfate [Proair Hfa Inhaler] 1 - 2 puffs INH Q4H PRN 07/19/21 Cyclobenzaprine [Flexeril] 10 mg PO DAILY PRN 07/19/21 Ondansetron HCl 4 mg PO BID PRN 07/19/21 Oxycodone HCl 10 mg PO Q6H PRN 07/19/21 Umeclidinium Brm/Vilanterol Tr [Anoro Ellipta 62.5-25 Mcg INH] 1 puffs INH DAILY 07/19/21 Objective - Vital Signs/Intake & Output Reviewed Vital Signs: Yes Vital Signs: Vital Signs x48h Temp Pulse Pulse Resp BP Pulse Ox 07/19/21 15:40 36.5 C 85 24 117/53 L 92 07/19/21 13:30 80 22 07/19/21 13:00 84 30 H 118/54 L 98 Intake & Output: Intake & Output 07/16/21 07/17/21 07/18/21 07/19/21 23:59 23:59 23:59 23:59 Intake Total 1697.5 2810 Output Total 200 950 Balance 1497.5 1860 - Objective General Appearance: positive: No acute distress, Alert Eyes Bilateral: positive: Normal inspection, Conjunctivae nml ENT: positive: ENT inspection nml Neck: positive: Nml inspection Respiratory: positive: No respiratory distress. negative: Wheezes, Rales Cardiovascular: positive: Regular rate & rhythm. negative: Tachycardia Abdomen: positive: Other (Ileostomy in place over mid left abdomen. Taveras in place in right lower quadrant urostomy.) Skin: positive: Warm, Dry Extremities: positive: No pedal edema Neurologic/Psychiatric: positive: Other (No focal deficits.). negative: Disoriented to person, Disoriented to place - Lab Results Fish Bones: 07/18/21 20:23 07/18/21 20:23 Other Labs: Lab Results x24hrs 07/19/21 07/19/21 07/18/21 Range/Units 12:22 12:22 20:23 WBC (4.8-10.8) x10^3/uL RBC (4.20-5.40) 10^6/uL Hgb (12.0-16.0) g/dL Hct (37.0-47.0) % MCV (81.0-99.0) fL MCH (27.0-31.0) pg MCHC (32.0-36.0) g/dL RDW (12.0-15.0) % Plt Count (130-450) 10^3/uL MPV (7.9-10.8) fL Neut # (Auto) (1.5-6.6) 10^3/uL Lymph # (Auto) (1.5-3.5) 10^3/uL [place] # (Auto) (0.0-1.0) 10^3/uL Eos # (Auto) (0.0-0.7) 10^3/uL Baso # (Auto) (0.0-0.1) 10^3/uL Absolute Nucleated RBC x10^3/uL Nucleated RBC % /100WBC Sodium 138 (135-145) mmol/L Potassium 4.7 (3.5-5.0) mmol/L Chloride 107 (101-111) mmol/L Carbon Dioxide 23 (21-32) mmol/L Anion Gap 8.0 (6-13) BUN 30 H (6-20) mg/dL Creatinine 1.1 H (0.4-1.0) mg/dL Estimated GFR (MDRD) 48 L (>89) Glucose 111 H (70-100) mg/dL Calcium 8.2 L (8.5-10.3) mg/dL Total Bilirubin 0.6 (0.2-1.0) mg/dL AST 36 (10-42) IU/L ALT 45 (10-60) IU/L Alkaline Phosphatase 227 H (42-121) IU/L B-Natriuretic Peptide 170 H (5-100) pg/mL Total Protein 8.1 (6.7-8.2) g/dL Albumin 2.4 L (3.2-5.5) g/dL Globulin 5.7 H (2.1-4.2) g/dL Albumin/Globulin Ratio 0.4 L (1.0-2.2) Lipase 36 (22-51) U/L TSH 3.17 (0.34-5.60) uIU/mL Nasal Adenovirus (PCR) Nasal B. parapertussis DNA (PCR) Nasal Coronavir 229E PCR Nasal Coronavir HKU1 PCR Nasal Coronavir NL63 PCR Nasal Coronavir OC43 PCR Nasal Enterovir/Rhinovir PCR Nasal Influenza B PCR Nasal Influenza A PCR Nasal Parainfluen 1 PCR Nasal Parainfluen 2 PCR Nasal Parainfluen 3 PCR Nasal Parainfluen 4 PCR Nasal RSV (PCR) Nasal B.pertussis DNA PCR Nasal C.pneumoniae (PCR) Aurelio Human Metapneumo PCR Nasal M.pneumoniae (PCR) Nasal SARS-CoV-2 (PCR) 07/18/21 07/18/21 Range/Units 20:23 18:17 WBC 9.8 (4.8-10.8) x10^3/uL RBC 4.08 L (4.20-5.40) 10^6/uL Hgb 8.7 L (12.0-16.0) g/dL Hct 29.8 L (37.0-47.0) % MCV 73.0 L (81.0-99.0) fL MCH 21.3 L (27.0-31.0) pg MCHC 29.2 L (32.0-36.0) g/dL RDW 18.7 H (12.0-15.0) % Plt Count 334 (130-450) 10^3/uL MPV 9.1 (7.9-10.8) fL Neut # (Auto) 8.1 H (1.5-6.6) 10^3/uL Lymph # (Auto) 1.0 L (1.5-3.5) 10^3/uL [place] # (Auto) 0.7 (0.0-1.0) 10^3/uL Eos # (Auto) 0.0 (0.0-0.7) 10^3/uL Baso # (Auto) 0.1 (0.0-0.1) 10^3/uL Absolute Nucleated RBC 0.00 x10^3/uL Nucleated RBC % 0.0 /100WBC Sodium (135-145) mmol/L Potassium (3.5-5.0) mmol/L Chloride (101-111) mmol/L Carbon Dioxide (21-32) mmol/L Anion Gap (6-13) BUN (6-20) mg/dL Creatinine (0.4-1.0) mg/dL Estimated GFR (MDRD) (>89) Glucose (70-100) mg/dL Calcium (8.5-10.3) mg/dL Total Bilirubin (0.2-1.0) mg/dL AST (10-42) IU/L ALT (10-60) IU/L Alkaline Phosphatase (42-121) IU/L B-Natriuretic Peptide (5-100) pg/mL Total Protein (6.7-8.2) g/dL Albumin (3.2-5.5) g/dL Globulin (2.1-4.2) g/dL Albumin/Globulin Ratio (1.0-2.2) Lipase (22-51) U/L TSH (0.34-5.60) uIU/mL Nasal Adenovirus (PCR) NOT DETECTED Nasal B. parapertussis DNA (PCR) NOT DETECTED Nasal Coronavir 229E PCR NOT DETECTED Nasal Coronavir HKU1 PCR NOT DETECTED Nasal Coronavir NL63 PCR NOT DETECTED Nasal Coronavir OC43 PCR NOT DETECTED Nasal Enterovir/Rhinovir PCR NOT DETECTED Nasal Influenza B PCR NOT DETECTED Nasal Influenza A PCR NOT DETECTED Nasal Parainfluen 1 PCR NOT DETECTED Nasal Parainfluen 2 PCR NOT DETECTED Nasal Parainfluen 3 PCR NOT DETECTED Nasal Parainfluen 4 PCR NOT DETECTED Nasal RSV (PCR) NOT DETECTED Nasal B.pertussis DNA PCR NOT DETECTED Nasal C.pneumoniae (PCR) NOT DETECTED [place] Human Metapneumo PCR NOT DETECTED Nasal M.pneumoniae (PCR) NOT DETECTED Nasal SARS-CoV-2 (PCR) DETECTED A Assessment/Plan - Problem List (1) Acute respiratory failure with hypoxia Impression: We suspect this to be related to Covid pneumonia. We ordered a CT angiogram today to active pulmonary embolism. This was negative for PE and suggested mild pulmonary edema versus pneumonia. Clinically, she does not appear to be in hear t failure. I suspect her hypoxia may be due to Covid and she has shown significant improvement since admission yesterday evening. She is now on room air. We will continue Decadron and remdesivir. Hold off on antibiotics given lack of evidence of bacterial infection at this time. If she continues to improve we will do an exercise desaturation test tomorrow and consider discharge. If she is still dyspneic or becomes hypoxic will consider diuresis. Ideally would obtain an echocardiogram we do not have this available. (2) COVID-19 Impression: We suspect the cause of her respiratory failure with hypoxia. She is vaccinated with the booster vaccine. Continue contact precautions. Continue Decadron and remdesivir. 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 Continue her home TPN regimen with diet as tolerated. (4) Anemia Impression: She has chronic anemia which has progressed over the past few months. Her MCV is decreased with suggest iron deficiency. We will check iron studies and if they are suggestive of iron deficiency we will start her on iron segmentation. This may also be anemia of chronic disease. Qualifiers: Anemia type: unspecified type Qualified Code(s): D64.9 - Anemia, unspecified (5) Dementia Impression: She is little forgetful at times and does have some underlying dementia. We will try and avoid sedatives to decrease her risk of delirium. Qualifiers: Dementia type: Alzheimer's Alzheimer's disease onset: late-onset Dementia behavioral disturbance: without behavioral disturbance Qualified Code(s): G30.1 - Alzheimer's disease with late onset; F02.80 - Dementia in other diseases classified elsewhere without behavioral disturbance (6) Hypothyroid Impression: Continue Synthroid. Qualifiers: Hypothyroidism type: postoperative Qualified Code(s): E89.0 - Postprocedural hypothyroidism
[2021-07-19] MEDS: TPN (CLINIMIX E 5/15) 2,000 ML with MULTIVITAMIN 10 ML, TRACE ELEMENTS 1 ML IV SCH ×3 (18:41)
[2021-07-19] MEDS: FAT EMULSION 20% 250 ML IV SCH (18:42)
[2021-07-20] MEDS: SODIUM CHLORIDE FLUSH 0.9% 10 ML SYRINGE IVP SCH ×3 (00:32→16:44)
[2021-07-20 05:28] LABS: BASOPHILS % (AUTO) 0.4 %; EOSINOPHILS # (AUTO) 0.1 10^3/uL (0.0-0.7); EOSINOPHILS % (AUTO) 0.7 %; HCT - HEMATOCRIT 28.3 % (37.0-47.0); HGB - HEMOGLOBIN 8.1 g/dL (12.0-16.0); LYMPHOCYTES # (AUTO) 0.8 10^3/uL (1.5-3.5); LYMPHOCYTES % (AUTO) 11.6 %; MEAN CORPUSCULAR HEMOGLOBIN 21.2 pg (27.0-31.0); MEAN CORPUSCULAR HGB CONC 28.6 g/dL (32.0-36.0); MEAN CORPUSCULAR VOLUME 74.1 fL (81.0-99.0); MEAN PLATELET VOLUME 9.3 fL (7.9-10.8); MONOCYTES # (AUTO) 0.5 10^3/uL (0.0-1.0); MONOCYTES % (AUTO) 7.4 %; NEUTROPHILS # (AUTO) 5.6 10^3/uL (1.5-6.6); NEUTROPHILS % (AUTO) 79.1 %; PLT - PLATELET COUNT 323 10^3/uL (130-450); RED BLOOD COUNT 3.82 10^6/uL (4.20-5.40); RED CELL DISTRIBUTION WIDTH 18.8 % (12.0-15.0); WHITE BLOOD COUNT 7.1 x10^3/uL (4.8-10.8)
[2021-07-20 05:47] LABS: ALBUMIN 2.2 g/dL (3.2-5.5); ALBUMIN/GLOBULIN RATIO 0.4 (1.0-2.2); BILIRUBIN,TOTAL 0.2 mg/dL (0.2-1.0); CALCIUM 8.2 mg/dL (8.5-10.3); CREATININE 0.8 mg/dL (0.4-1.0); MAGNESIUM 1.8 mg/dL (1.7-2.8); PHOSPHORUS 2.8 mg/dL (2.5-4.6); POTASSIUM 3.5 mmol/L (3.5-5.0); TOTAL PROTEIN 7.5 g/dL (6.7-8.2)
[2021-07-20] MEDS: LEVOTHYROXINE 112 MCG TABLET PO SCH (06:26)
[2021-07-20] MEDS: ALBUTEROL 1 PUFF INH PRN (08:26)
[2021-07-20] MEDS: INSULIN ASPART 300 UNIT/3 ML PEN SUBQ SCH ×4 (08:46→21:59)
[2021-07-20] MEDS: ENOXAPARIN 40 MG/0.4 ML SYRINGE SUBQ SCH (08:48)
[2021-07-20] MEDS: DEXAMETHASONE 4 MG/ML VIAL IVP SCH (08:48)
[2021-07-20] MEDS ORDERED: REMDESIVIR 100MG VIAL 100 MG in SODIUM CHLORIDE 0.9% 100ML 100 ML IV SCH (09:00)
[2021-07-20] MEDS: FERROUS SULFATE 325 MG TABLET PO SCH (13:14)
--- NOTE | 2021-07-20 14:37 | PHARMACY PROGRESS NOTE ---
- Best Possible Medication History Admit Date and Time: 07/18/212207 Processed by: Pharmacy Medication History completed: Yes Patient Interview: Pt unable to participate Secondary Source(s): Physician records, Pharmacy records, Insurance records As the person ultimately responsible for medication therapy, providers are able to order a medication from an existing home medication list in [facility] via the "Reconcile Routine" prior to Confirmation of that medication by underwriting support specialist. Such practice is discouraged except when the physician, in their clinical judgment, deems that a medical need exists for a medication without regard to previous use.
--- NOTE | 2021-07-20 15:14 | PROVIDER PROGRESS NOTE ---
Subjective - Prog Note Date Prog Note Date: 07/20/21 - Subjective Subjective: She feels a little more short of breath compared to yesterday. Feels weak overall. Still has an occasional cough. She states the urostomy is leaking which is a chronic problem for her. Current Medications - Current Medications Current Medications: Active Medications Acetaminophen (Acetaminophen 325 Mg Tablet) 650 mg PO Q4HR PRN PRN Reason: Pain 1 to 4, or Fever Albuterol (Albuterol 1 Puff) 2 puffs INH Q4HR PRN PRN Reason: Wheezing Stop: 07/26/21 07:00 Last Admin: 07/20/21 08:26 Dose: 2 puffs Dexamethasone (Dexamethasone 4 Mg/Ml Vial) 6 mg IVP DAILY [facility] Last Admin: 07/20/21 08:48 Dose: 6 mg Enoxaparin Sodium (Enoxaparin 40 Mg/0.4 Ml Syringe) 40 mg SUBQ DAILY [facility] Last Admin: 07/20/21 08:48 Dose: 40 mg Ferrous Sulfate (Ferrous Sulfate 325 Mg Tablet) 325 mg PO QDLUNCH [facility] Last Admin: 07/20/21 13:14 Dose: 325 mg Multivitamins 10 ml/ TRACE ELEMENTS 1 ml/ Amino Ac/Electrol/Dextrose/Calcium 2,011 mls @ 83 mls/hr IV Q24H [facility]; Protocol Last Admin: 07/19/21 18:41 Dose: 50 mls/hr Fat Emulsion Intravenous (Intralipid 20%) 250 mls @ 21 mls/hr IV Q24H [facility] Last Infusion: 07/20/21 06:40 Dose: Infused Insulin Aspart (Insulin Aspart 300 Unit/3 Ml Pen) 1 - 5 unit SUBQ 0800,1 200,1700,2100 [facility]; Protocol Last Admin: 07/20/21 13:14 Dose: 1 unit Levothyroxine Sodium (Levothyroxine 112 Mcg Tablet) 112 mcg PO QDAC [facility] Last Admin: 07/20/21 06:26 Dose: 112 mcg Multi-Ingredient Ointment (Zinc Oxide 20% Oint 30 Gm Tube) 1 applic TOP PRN PRN PRN Reason: Skin Care Last Admin: 07/19/21 06:20 Dose: 1 applic Ondansetron HCl (Ondansetron Odt 4 Mg Tablet) 4 mg TL Q6HR PRN PRN Reason: Nausea / Vomiting Ondansetron HCl (Ondansetron 4 Mg/2 Ml Vial) 4 mg IVP Q6HR PRN PRN Reason: Nausea / Vomiting Oxycodone HCl (Oxycodone 5 Mg Tablet) 5 mg PO Q4HR PRN PRN Reason: Pain 5 to 7 Sodium Chloride (Sodium Chloride Flush 0.9% 10 Ml Syringe) 10 ml IVP PRN PRN PRN Reason: NEEDED PER PROVIDER ORDERS Sodium Chloride (Sodium Chloride Flush 0.9% 10 Ml Syringe) 10 ml IVP 0100,0900,1700 [facility] Last Admin: 07/20/21 08:49 Dose: 10 ml Levothyroxine Sodium [Synthroid] 112 mcg PO QDAC 06/05/17 Albuterol Sulfate [Proair Hfa Inhaler] 1 - 2 puffs INH Q4H PRN 07/19/21 Cyclobenzaprine [Flexeril] 10 mg PO DAILY PRN 07/19/21 Ondansetron HCl 4 mg PO BID PRN 07/19/21 Oxycodone HCl 10 mg PO Q6H PRN 07/19/21 Umeclidinium Brm/Vilanterol Tr [Anoro Ellipta 62.5-25 Mcg INH] 1 puffs INH DAILY 07/19/21 Objective - Vital Signs/Intake & Output Reviewed Vital Signs: Yes Vital Signs: Vital Signs x48h Temp Pulse Pulse Pulse Pulse Pulse Pulse 07/20/21 13:57 110 H 103 H 116 H 103 H 07/20/21 11:17 36.3 C L 107 H 07/20/21 08:27 95 07/20/21 07:48 36.7 C 99 Resp BP BP BP BP BP Pulse Ox 07/20/21 13:57 152/68 H 146/76 H 164/84 H 127/60 07/20/21 11:17 24 138/64 H 93 07/20/21 08:27 26 H 07/20/21 07:48 22 131/63 H 97 Intake & Output: Intake & Output 07/17/21 07/18/21 07/19/21 07/20/21 23:59 23:59 23:59 23:59 Intake Total 1697.5 3661 690 Output Total 200 1500 1125 Balance 1497.5 2161 -435 - Objective General Appearance: positive: No acute distress, Alert Eyes Bilateral: positive: Normal inspection, Conjunctivae nml Neck: positive: Nml inspection Respiratory: positive: Other (She is not in distress but is tachypneic today compared to yesterday. Breath sounds are diminished throughout.) Cardiovascular: positive: Regular rate & rhythm. negative: Tachycardia Abdomen: positive: Non-tender, Other (Ileostomy in place. Urostomy is noted with a Taveras catheter in place. There is a small amount of urine leaking.) Skin: positive: Warm, Dry Extremities: positive: Pedal edema (Trace edema in the bilateral lower extremities.) Neurologic/Psychiatric: positive: Disoriented to place, Disoriented to time. negative: Disoriented to person - Lab Results Fish Bones: 07/20/21 05:15 07/20/21 05:15 Other Labs: Lab Results x24hrs 07/20/21 07/20/21 07/20/21 Range/Units 05:15 05:15 05:15 WBC 7.1 (4.8-10.8) x10^3/uL RBC 3.82 L (4.20-5.40) 10^6/uL Hgb 8.1 L (12.0-16.0) g/dL Hct 28.3 L (37.0-47.0) % MCV 74.1 L (81.0-99.0) fL MCH 21.2 L (27.0-31.0) pg MCHC 28.6 L (32.0-36.0) g/dL RDW 18.8 H (12.0-15.0) % Plt Count 323 (130-450) 10^3/uL MPV 9.3 (7.9-10.8) fL Neut # (Auto) 5.6 (1.5-6.6) 10^3/uL Lymph # (Auto) 0.8 L (1.5-3.5) 10^3/uL Lane # (Auto) 0.5 (0.0-1.0) 10^3/uL Eos # (Auto) 0.1 (0.0-0.7) 10^3/uL Baso # (Auto) 0.0 (0.0-0.1) 10^3/uL Absolute Nucleated RBC 0.00 x10^3/uL Nucleated RBC % 0.0 /100WBC Sodium 137 (135-145) mmol/L Potassium 3.5 (3.5-5.0) mmol/L Chloride 108 (101-111) mmol/L Carbon Dioxide 22 (21-32) mmol/L Anion Gap 7.0 (6-13) BUN 26 H (6-20) mg/dL Creatinine 0.8 (0.4-1.0) mg/dL Estimated GFR (MDRD) 69 L (>89) Glucose 126 H (70-100) mg/dL Calcium 8.2 L (8.5-10.3) mg/dL Phosphorus 2.8 (2.5-4.6) mg/dL Magnesium 1.8 (1.7-2.8) mg/dL Iron 16 L (28-170) ug/dL TIBC 244 L (250-450) ug/dL % Saturation 7 L (20-50) % Transferrin 174 L (192-382) mg/dL Ferritin 200.6 (11.0-306.8) ng/mL Total Bilirubin 0.2 (0.2-1.0) mg/dL AST 29 (10-42) IU/L ALT 34 (10-60) IU/L Alkaline Phosphatase 168 H (42-121) IU/L Total Protein 7.5 (6.7-8.2) g/dL Albumin 2.2 L (3.2-5.5) g/dL Globulin 5.3 H (2.1-4.2) g/dL Albumin/Globulin Ratio 0.4 L (1.0-2.2) Prealbumin 15 L (18-45) mg/dL Triglycerides 109 ( - 149) mg/dL Assessment/Plan - Problem List (1) Acute respiratory failure with hypoxia Impression: We suspect this may related to Covid pneumonia. CT angiogram yesterday showed no evidence of pulmonary embolism. There was suggestion of possible mild pulmonary edema versus pneumonia. She does not appear to be in heart failure clinically. She is now on room air but she is still quite tachypneic today especially with minimal activity. We will keep her on Decadron but discontinue the remdesivir. We have held off on antibiotics given the lack of evidence of bacterial infection but if she becomes febrile or has a rising white count then we will add ceftriaxone/azithromycin. I spoke with the patient's spouse regarding overall condition and he is leaning towards focusing on her comfort and would like us to see if she is a candidate for hospice. (2) COVID-19 Impression: We suspect this is the cause of her respiratory failure with hypoxia. She is vaccinated with the booster vaccine. Continue contact precautions. Continue Decadron. (3) Complications of immobility Impression: She is quite deconditioned and was evaluated by physical therapy/Occupational Therapy today. It was felt that she benefit from SNF or home health at home. I discussed this with the patient's , Yoel, and he expressed concern about the patient going to a SNF as she did not do well in the past with this. He feels that she would not be agreeable to this. He expressed concerns over her overall prognosis and functional decline over the past few months. He is l eaning towards focusing on her comfort and is wondering if she would be appropriate for hospice. I explained to him that I will discuss this with the home hospice rn to see if they would be willing to admit the patient given her poor functional status with underlying dementia and multiple comorbidities. (4) Dementia Impression: She does have dementia and her tells me this has really progressed over the past 6 months. She is oriented to self and occasionally location but not to year or month. We we will avoid sedatives as she is at risk for delirium. 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 Continue her home TPN regimen with diet as tolerated. If she does ultimately go home on hospice then TPN will need to be discontinued. (6) Anemia Impression: Her iron studies are suggestive of anemia of chronic disease with a potential component of iron deficiency. We have started her on oral iron supplementation. Her stool is negative for occult blood. Qualifiers: Anemia type: unspecified type Qualified Code(s): D64.9 - Anemia, unspecified (7) History of urostomy Impression: She has a history of a urostomy. There is a small amount of leaking where the Taveras catheter inserts. We will continue with dressing changes to keep the ostomy as dry as possible. (8) Hypothyroid Impression: Continue synthroid. Qualifiers: Hypothyroidism type: postoperative Qualified Code(s): E89.0 - Postprocedural hypothyroidism
[2021-07-20] MEDS: FAT EMULSION 20% 250 ML IV SCH (18:44)
[2021-07-20] MEDS: TPN (CLINIMIX E 5/15) 2,000 ML with MULTIVITAMIN 10 ML, TRACE ELEMENTS 1 ML IV SCH ×3 (18:45)
[2021-07-21] MEDS: SODIUM CHLORIDE FLUSH 0.9% 10 ML SYRINGE IVP SCH ×3 (00:33→16:45)
[2021-07-21] MEDS: LEVOTHYROXINE 112 MCG TABLET PO SCH (06:00)
[2021-07-21 07:37] LABS: BASOPHILS # (AUTO) 0.1 10^3/uL (0.0-0.1); BASOPHILS % (AUTO) 0.4 %; EOSINOPHILS % (AUTO) 0.3 %; HCT - HEMATOCRIT 30.7 % (37.0-47.0); HGB - HEMOGLOBIN 9.1 g/dL (12.0-16.0); LYMPHOCYTES % (AUTO) 8.6 %; MEAN CORPUSCULAR HEMOGLOBIN 21.5 pg (27.0-31.0); MEAN CORPUSCULAR HGB CONC 29.6 g/dL (32.0-36.0); MEAN CORPUSCULAR VOLUME 72.6 fL (81.0-99.0); MEAN PLATELET VOLUME 8.9 fL (7.9-10.8); MONOCYTES # (AUTO) 0.6 10^3/uL (0.0-1.0); NEUTROPHILS # (AUTO) 9.6 10^3/uL (1.5-6.6); NEUTROPHILS % (AUTO) 84.8 %; PLT - PLATELET COUNT 347 10^3/uL (130-450); RED BLOOD COUNT 4.23 10^6/uL (4.20-5.40); RED CELL DISTRIBUTION WIDTH 18.6 % (12.0-15.0); WHITE BLOOD COUNT 11.3 x10^3/uL (4.8-10.8)
[2021-07-21 07:41] LABS: CALCIUM 7.8 mg/dL (8.5-10.3); CREATININE 0.8 mg/dL (0.4-1.0); POTASSIUM 3.8 mmol/L (3.5-5.0)
[2021-07-21] MEDS: INSULIN ASPART 300 UNIT/3 ML PEN SUBQ SCH ×4 (08:00→20:35)
[2021-07-21 08:11] LABS: FOLATE 10.9 ng/mL (5.90 - >24.8)
[2021-07-21] MEDS: ALBUTEROL 1 PUFF INH PRN (08:41)
[2021-07-21] MEDS: DEXAMETHASONE 4 MG/ML VIAL IVP SCH (09:28)
[2021-07-21] MEDS: ENOXAPARIN 40 MG/0.4 ML SYRINGE SUBQ SCH (09:28)
--- NOTE | 2021-07-21 09:52 | XRAY Report ---
PROCEDURE: Chest 1 View X-Ray INDICATIONS: Worsening dyspnea. Covid positive. TECHNIQUE: One view of the chest was acquired. COMPARISON: July 18, 2021. Reference is made to the CT chest dated July 20, 2019. FINDINGS: SUPPORT DEVICES: Redemonstrated right central venous catheter with tip overlying the cavoatrial regio n. LUNGS/PLEURA: Linear density left midlung zone, compatible atelectasis/scar. Coarsened interstitial markings. Blunting of the left costophrenic sulcus, compatible trace pleural fluid. No pneumothorax. MEDIASTINUM: The cardiomediastinal silhouette is within normal limits. BONES/SOFT TISSUES: No acute abnormality. IMPRESSION: 1.No significant interval change. Reviewed by: Prince Meade MD on 07/21/2021 9:50 AM PDT Approved by: Prince Meade MD on 07/21/2021 9:50 AM PDT Station ID: [id number]
[2021-07-21] MEDS ORDERED: cefTRIAXone 2 GM in SODIUM CHLORIDE 0.9% MINIBAG 100 ML IV SCH (10:00)
[2021-07-21] MEDS: cefTRIAXone 2 GM in SODIUM CHLORIDE 0.9% MINIBAG 100 ML IV SCH (10:45)
[2021-07-21] MEDS: SODIUM CHLORIDE FLUSH 0.9% 10 ML SYRINGE IVP PRN ×2 (10:45→19:07)
[2021-07-21] MEDS: ZINC OXIDE 20% OINT 30 GM TUBE TOP PRN (11:46)
[2021-07-21] MEDS: AZITHROMYCIN INJ 500 MG in SODIUM CHLORIDE 0.9% 250 ML IV SCH (11:46)
[2021-07-21] MEDS: FERROUS SULFATE 325 MG TABLET PO SCH (12:56)
--- NOTE | 2021-07-21 15:53 | PROVIDER PROGRESS NOTE ---
Subjective - Prog Note Date Prog Note Date: 07/21/21 - Subjective Subjective: She still feels short of breath with minimal activity. Denies any chest pain. Still has an occasional nonproductive cough. She is open to the idea of focusing on her comfort when I brought up hospice. Current Medications - Current Medications Current Medications: Active Medications Acetaminophen (Acetaminophen 325 Mg Tablet) 650 mg PO Q4HR PRN PRN Reason: Pain 1 to 4, or Fever Albuterol (Albuterol 1 Puff) 2 puffs INH Q4HR PRN PRN Reason: Wheezing Stop: 07/26/21 07:00 Last Admin: 07/21/21 08:41 Dose: 2 puffs Dexamethasone (Dexamethasone 4 Mg/Ml Vial) 6 mg IVP DAILY [facility] Last Admin: 07/21/21 09:28 Dose: 6 mg Enoxaparin Sodium (Enoxaparin 40 Mg/0.4 Ml Syringe) 40 mg SUBQ DAILY [facility] Last Admin: 07/21/21 09:28 Dose: 40 mg Ferrous Sulfate (Ferrous Sulfate 325 Mg Tablet) 325 mg PO QDLUNCH [facility] Last Admin: 07/21/21 12:56 Dose: 325 mg Heparin Sodium (Beef Lung) (Heparin Flush 50 Units/5 Ml Syringe) 30 - 50 unit IVP PRN PRN PRN Reason: Port Protocol (<24 hours) Multivitamins 10 ml/ TRACE ELEMENTS 1 ml/ Amino Ac/Electrol/Dextrose/Calcium 2,011 mls @ 83 mls/hr IV Q24H [facility]; Protocol Last Admin: 07/20/21 18:45 Dose: 83 mls/hr Fat Emulsion Intravenous (Intralipid 20%) 250 mls @ 21 mls/hr IV Q24H [facility] Last Infusion: 07/21/21 06:40 Dose: Infused Azithromycin 500 mg/ Sodium (Chloride) 250 mls @ 250 mls/hr IV 1000 [facility] Stop: 07/23/21 10:59 Last Infusion: 07/21/21 12:55 Dose: Infused Ceftriaxone Sodium 2 gm/ (Sodium Chloride) 100 mls @ 200 mls/hr IV DAILY [facility] Stop: 07/25/21 09:29 Last Infusion: 07/21/21 11:20 Dose: Infused Insulin Aspart (Insulin Aspart 300 Unit/3 Ml Pen) 1 - 5 unit SUBQ 0800,1200,1700,2100 [facility]; Protocol Last Admin: 07/21/21 12:56 Dose: Not Given Levothyroxine Sodium (Levothyroxine 112 Mcg Tablet) 112 mcg PO QDAC [facility] Last Admin: 07/21/21 06:00 Dose: 112 mcg Multi-Ingredient Ointment (Zinc Oxide 20% Oint 30 Gm Tube) 1 applic TOP PRN PRN PRN Reason: Skin Care Last Admin: 07/21/21 11:46 Dose: 1 applic Ondansetron HCl (Ondansetron Odt 4 Mg Tablet) 4 mg TL Q6HR PRN PRN Reason: Nausea / Vomiting Ondansetron HCl (Ondansetron 4 Mg/2 Ml Vial) 4 mg IVP Q6HR PRN PRN Reason: Nausea / Vomiting Oxycodone HCl (Oxycodone 5 Mg Tablet) 5 mg PO Q4HR PRN PRN Reason: Pain 5 to 7 Sodium Chloride (Sodium Chloride Flush 0.9% 10 Ml Syringe) 10 ml IVP PRN PRN PRN Reason: NEEDED PER PROVIDER ORDERS Last Admin: 07/21/21 10:45 Dose: 10 ml Sodium Chloride (Sodium Chloride Flush 0.9% 10 Ml Syringe) 10 ml IVP 0100,0900,1700 [facility] Last Admin: 07/21/21 09:28 Dose: 10 ml Levothyroxine Sodium [Synthroid] 112 mcg PO QDAC 06/05/17 Albuterol Sulfate [Proair Hfa Inhaler] 1 - 2 puffs INH Q4H PRN 07/19/21 Cyclobenzaprine [Flexeril] 10 mg PO DAILY PRN 07/19/21 Ondansetron HCl 4 mg PO BID PRN 07/19/21 Oxycodone HCl 10 mg PO Q6H PRN 07/19/21 Umeclidinium Brm/Vilanterol Tr [Anoro Ellipta 62.5-25 Mcg INH] 1 puffs INH DAILY 07/19/21 Objective - Vital Signs/Intake & Output Reviewed Vital Signs: Yes Vital Signs: Vital Signs x48h Temp Pulse Pulse Resp BP Pulse Ox 07/21/21 11:43 36.5 C 95 28 H 141/65 H 93 07/21/21 08:53 101 H 19 07/21/21 07:57 37 C 95 24 132/76 H 94 Intake & Output: Intake & Output 07/18/21 07/19/21 07/20/21 07/21/21 23:59 23:59 23:59 23:59 Intake Total 1697.5 3661 2604.333 1080 Output Total 200 1500 1625 825 Balance 1497.5 2161 979.333 255 - Objective General Appearance: positive: No acute distress, Alert Eyes Bilateral: positive: Normal inspection, Conjunctivae nml ENT: positive: ENT inspection nml Neck: positive: Nml inspection Respiratory: positive: No respiratory distress, Rhonchi, Other (She is nondistressed but she is still tachypneic at rest.). negative: Wheezes, Rales Cardiovascular: positive: Regular rate & rhythm. negative: Tachycardia Abdomen: positive: Other (Urostomy and ileostomy in place.) Skin: positive: Warm Extremities: positive: No pedal edema, Pedal edema Neurologic/Psychiatric: positive: Other (She is more oriented today but is still easily forgetful.). negative: Disoriented to person, Disoriented to place, Disoriented to time - Lab Results Fish Bones: 07/21/21 07:25 07/21/21 07:25 Other Labs: Lab Results x24hrs 07/21/21 07/21/21 07/21/21 Range/Units 07:25 07:25 07:25 WBC 11.3 H (4.8-10.8) x10^3/uL RBC 4.23 (4.20-5.40) 10^6/uL Hgb 9.1 L (12.0-16.0) g/dL Hct 30.7 L (37.0-47.0) % MCV 72.6 L (81.0-99.0) fL MCH 21.5 L (27.0-31.0) pg MCHC 29.6 L (32.0-36.0) g/dL RDW 18.6 H (12.0-15.0) % Plt Count 347 (130-450) 10^3/uL MPV 8.9 (7.9-10.8) fL Neut # (Auto) 9.6 H (1.5-6.6) 10^3/uL Lymph # (Auto) 1.0 L (1.5-3.5) 10^3/uL [place] # (Auto) 0.6 (0.0-1.0) 10^3/uL Eos # (Auto) 0.0 (0.0-0.7) 10^3/uL Baso # (Auto) 0.1 (0.0-0.1) 10^3/uL Absolute Nucleated RBC 0.00 x10^3/uL Nucleated RBC % 0.0 /100WBC Sodium 135 (135-145) mmol/L Potassium 3.8 (3.5-5.0) mmol/L Chloride 102 (101-111) mmol/L Carbon Dioxide 24 (21-32) mmol/L Anion Gap 9.0 (6-13) BUN 32 H (6-20) mg/dL Creatinine 0.8 (0.4-1.0) mg/dL Estimated GFR (MDRD) 69 L (>89) Glucose 117 H (70-100) mg/dL Calcium 7.8 L (8.5-10.3) mg/dL Vitamin B12 969 H (180-914) pg/mL Folate 10.90 (5.90 - >24.8) ng/mL Assessment/Plan - Problem List (1) Acute respiratory failure with hypoxia Impression: She is not hypoxic at rest but today we did perform an exercise desaturation test and she dropped to the mid 80s with minimal activity. She still is quite tachypneic at rest. We are treating her for COVID-[address] was concerning for pneumonia versus edema. I did repeat a chest x-ray today which showed no acute abnormalities. Her Covid diagnosis is relatively new and I wonder if she may potentially still get worse before she gets better. Her white blood cell count is increased today but this may be due to the steroids. We will start her on antibiotics empirically given the prior CT scan findings. Hold off on diuresis given clinically she does not appear to be in heart failure with no edema. We will continue with Decadron. I discussed with the patient today regarding hospice and she is open to the idea of it. I spoke with her as well today and I asked him to speak with the patient so they both can be on the same page with regards to consideration of hospice. (2) COVID-19 Impression: This is presumed to be the cause of her respiratory failure with hypoxia. We will continue Decadron and we have added antibiotics today given elevated white blood cell count and the fact that she is not hypoxic with activity. Continue contact precautions. She is vaccinated with a booster vaccine as well. (3) Complications of immobility Impression: She is quite deconditioned and PT recommended SNF potentially. I discussed this with the patient's who felt that she would not be agreeable to this. I discussed with the patient today who prefers to go home rather than going to a SNF. I expressed my concerns over her poor functional status and she expressed understanding of this. We discussed that she may potentially be a candidate for hospice and what hospice entails of. She is potentially open to the idea of focusing on her comfort. I asked her to speak with her so they can both discuss this to see if they would be amenable to this. In the interim, we will continue with PT on a daily basis. (4) Dementia Impression: She does have dementia which has progressed over the past 6 months. Today she is oriented to self, location, year, month which is an improvement compared to yesterday. I still do not believe she has ability to make full medical decisions for herself and this is why I have asked her to speak with her regarding goals of care. We will avoid sedatives to decrease the risk of delirium. 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 Continue her home TPN regimen with diet as tolerated. If she does ultimately go home on hospice then TPN will need to be discontinued and this was discussed with patient and her . (6) Anemia Impression: Her iron studies are suggestive of anemia of chronic disease with a potential component of iron deficiency. We have started her on oral iron supplementation. Her stool is negative for occult blood. Qualifiers: Anemia type: unspecified type Qualified Code(s): D64.9 - Anemia, unspecified (7) History of urostomy Impression: She has a history of a urostomy. There is a small amount of leaking where the Taveras catheter inserts. We will continue with dressing changes to keep the ostomy as dry as possible. (8) Hypothyroid Impression: Continue synthroid. Qualifiers: Hypothyroidism type: postoperative Qualified Code(s): E89.0 - Postprocedural hypothyroidism
[2021-07-21] MEDS: FAT EMULSION 20% 250 ML IV SCH (18:57)
[2021-07-21] MEDS: TPN (CLINIMIX E 5/15) 2,000 ML with MULTIVITAMIN 10 ML, TRACE ELEMENTS 1 ML IV SCH ×3 (19:03)
[2021-07-22] MEDS: SODIUM CHLORIDE FLUSH 0.9% 10 ML SYRINGE IVP SCH ×3 (00:13→16:37)
[2021-07-22] MEDS: LEVOTHYROXINE 112 MCG TABLET PO SCH (06:52)
[2021-07-22 07:32] LABS: BASOPHILS % (AUTO) 0.2 %; EOSINOPHILS % (AUTO) 0.2 %; HCT - HEMATOCRIT 33.2 % (37.0-47.0); HGB - HEMOGLOBIN 9.6 g/dL (12.0-16.0); LYMPHOCYTES # (AUTO) 0.9 10^3/uL (1.5-3.5); LYMPHOCYTES % (AUTO) 7.5 %; MEAN CORPUSCULAR HEMOGLOBIN 20.9 pg (27.0-31.0); MEAN CORPUSCULAR HGB CONC 28.9 g/dL (32.0-36.0); MEAN CORPUSCULAR VOLUME 72.3 fL (81.0-99.0); MEAN PLATELET VOLUME 9.1 fL (7.9-10.8); MONOCYTES # (AUTO) 0.5 10^3/uL (0.0-1.0); MONOCYTES % (AUTO) 4.2 %; NEUTROPHILS # (AUTO) 10.9 10^3/uL (1.5-6.6); NEUTROPHILS % (AUTO) 87.2 %; PLT - PLATELET COUNT 365 10^3/uL (130-450); RED BLOOD COUNT 4.59 10^6/uL (4.20-5.40); RED CELL DISTRIBUTION WIDTH 18.8 % (12.0-15.0); WHITE BLOOD COUNT 12.4 x10^3/uL (4.8-10.8)
[2021-07-22 07:39] LABS: CALCIUM 8.2 mg/dL (8.5-10.3); CREATININE 0.8 mg/dL (0.4-1.0); POTASSIUM 3.7 mmol/L (3.5-5.0)
[2021-07-22] MEDS: cefTRIAXone 2 GM in SODIUM CHLORIDE 0.9% MINIBAG 100 ML IV SCH (08:23)
[2021-07-22] MEDS: INSULIN ASPART 300 UNIT/3 ML PEN SUBQ SCH ×4 (08:23→21:26)
[2021-07-22] MEDS: DEXAMETHASONE 4 MG/ML VIAL IVP SCH (08:24)
[2021-07-22] MEDS: ENOXAPARIN 40 MG/0.4 ML SYRINGE SUBQ SCH (08:24)
[2021-07-22] MEDS: AZITHROMYCIN INJ 500 MG in SODIUM CHLORIDE 0.9% 250 ML IV SCH (09:58)
[2021-07-22] MEDS: FERROUS SULFATE 325 MG TABLET PO SCH (12:41)
[2021-07-22] MEDS ORDERED: FUROSEMIDE 40 MG/4 ML VIAL IVP STA (13:20)
--- NOTE | 2021-07-22 13:20 | PROVIDER PROGRESS NOTE ---
Subjective - Prog Note Date Prog Note Date: 07/22/21 - Subjective Subjective: She feels more short of breath in the morning. Feels better throughout the day. She feels much better compared to admission and is hoping she can go home tomorrow. Current Medications - Current Medications Current Medications: Active Medications Acetaminophen (Acetaminophen 325 Mg Tablet) 650 mg PO Q4HR PRN PRN Reason: Pain 1 to 4, or Fever Albuterol (Albuterol 1 Puff) 2 puffs INH Q4HR PRN PRN Reason: Wheezing Stop: 07/26/21 07:00 Last Admin: 07/21/21 08:41 Dose: 2 puffs Dexamethasone (Dexamethasone 4 Mg/Ml Vial) 6 mg IVP DAILY [facility] Last Admin: 07/22/21 08:24 Dose: 6 mg Enoxaparin Sodium (Enoxaparin 40 Mg/0.4 Ml Syringe) 40 mg SUBQ DAILY [facility] Last Admin: 07/22/21 08:24 Dose: 40 mg Ferrous Sulfate (Ferrous Sulfate 325 Mg Tablet) 325 mg PO QDLUNCH [facility] Last Admin: 07/22/21 12:41 Dose: 325 mg Heparin Sodium (Beef Lung) (Heparin Flush 50 Units/5 Ml Syringe) 30 - 50 unit IVP PRN PRN PRN Reason: Port Protocol (<24 hours) Last Admin: 07/21/21 19:07 Dose: 50 unit Multivitamins 10 ml/ TRACE ELEMENTS 1 ml/ Amino Ac/Electrol/Dextrose/Calcium 2,011 mls @ 83 mls/hr IV Q24H [facility]; Protocol Last Admin: 07/21/21 19:03 Dose: 83 mls/hr Fat Emulsion Intravenous (Intralipid 20%) 250 mls @ 21 mls/hr IV Q24H [facility] Last Infusion: 07/22/21 06:53 Dose: Infused Azithromycin 500 mg/ Sodium (Chloride) 250 mls @ 250 mls/hr IV 1000 [facility] Stop: 07/23/21 10:59 Last Infusion: 07/22/21 11:45 Dose: Infused Ceftriaxone Sodium 2 gm/ (Sodium Chloride) 100 mls @ 200 mls/hr IV DAILY [facility] Stop: 07/25/21 09:29 Last Infusion: 07/22/21 09:46 Dose: Infused Insulin Aspart (Insulin Aspart 300 Unit/3 Ml Pen) 1 - 5 unit SUBQ 0800,1200,1700,2100 [facility]; Protocol Last Admin: 07/22/21 16:37 Dose: 1 unit Levothyroxine Sodium (Levothyroxine 112 Mcg Tablet) 112 mcg PO QDAC [facility] Last Admin: 07/22/21 06:52 Dose: 112 mcg Multi-Ingredient Ointment (Zinc Oxide 20% Oint 30 Gm Tube) 1 applic TOP PRN PRN PRN Reason: Skin Care Last Admin: 07/21/21 11:46 Dose: 1 applic Ondansetron HCl (Ondansetron Odt 4 Mg Tablet) 4 mg TL Q6HR PRN PRN Reason: Nausea / Vomiting Ondansetron HCl (Ondansetron 4 Mg/2 Ml Vial) 4 mg IVP Q6HR PRN PRN Reason: Nausea / Vomiting Oxycodone HCl (Oxycodone 5 Mg Tablet) 5 mg PO Q4HR PRN PRN Reason: Pain 5 to 7 Sodium Chloride (Sodium Chloride Flush 0.9% 10 Ml Syringe) 10 ml IVP PRN PRN PRN Reason: NEEDED PER PROVIDER ORDERS Last Admin: 07/21/21 19:07 Dose: 10 ml Sodium Chloride (Sodium Chloride Flush 0.9% 10 Ml Syringe) 10 ml IVP 0100,0900 ,1700 [facility] Last Admin: 07/22/21 16:37 Dose: 10 ml Levothyroxine Sodium [Synthroid] 112 mcg PO QDAC 06/05/17 Albuterol Sulfate [Proair Hfa Inhaler] 1 - 2 puffs INH Q4H PRN 07/19/21 Cyclobenzaprine [Flexeril] 10 mg PO DAILY PRN 07/19/21 Ondansetron HCl 4 mg PO BID PRN 07/19/21 Oxycodone HCl 10 mg PO Q6H PRN 07/19/21 Umeclidinium Brm/Vilanterol Tr [Anoro Ellipta 62.5-25 Mcg INH] 1 puffs INH DAILY 07/19/21 Objective - Vital Signs/Intake & Output Reviewed Vital Signs: Yes Vital Signs: Vital Signs x48h Temp Pulse Resp BP Pulse Ox 07/22/21 11:45 36.0 C L 101 H 24 126/62 96 07/22/21 07:57 36.9 C 98 28 H 139/58 H 92 Intake & Output: Intake & Output 07/19/21 07/20/21 07/21/21 07/22/21 23:59 23:59 23:59 23:59 Intake Total 3661 2604.333 3378 1172 Output Total 1500 1625 950 75 Balance 2161 103.352 6324 1097 - Objective General Appearance: positive: Alert Eyes Bilateral: positive: Normal inspection, Conjunctivae nml ENT: positive: ENT inspection nml Respiratory: positive: No respiratory distress, Rhonchi, Other (Although she is not in distress, she is still quite tachypneic even with minimal activity. Speaks in short sentences at times.). negative: Rales Cardiovascular: positive: Regular rate & rhythm, No murmur Abdomen: positive: Other (Ileostomy and urostomy in place.) Skin: positive: Warm, Dry Extremities: positive: Pedal edema (Trace edema in bilateral lower extremities) Neurologic/Psychiatric: negative: Disoriented to person, Disoriented to place - Lab Results Fish Bones: 07/22/21 07:23 07/22/21 07:23 Other Labs: Lab Results x24hrs 07/22/21 07/22/21 Range/Units 07:23 07:23 WBC 12.4 H (4.8-10.8) x10^3/uL RBC 4.59 (4.20-5.40) 10^6/uL Hgb 9.6 L (12.0-16.0) g/dL Hct 33.2 L (37.0-47.0) % MCV 72.3 L (81.0-99.0) fL MCH 20.9 L (27.0-31.0) pg MCHC 28.9 L (32.0-36.0) g/dL RDW 18.8 H (12.0-15.0) % Plt Count 365 (130-450) 10^3/uL MPV 9.1 (7.9-10.8) fL Neut # (Auto) 10.9 H (1.5-6.6) 10^3/uL Lymph # (Auto) 0.9 L (1.5-3.5) 10^3/uL [place] # (Auto) 0.5 (0.0-1.0) 10^3/uL Eos # (Auto) 0.0 (0.0-0.7) 10^3/uL Baso # (Auto) 0.0 (0.0-0.1) 10^3/uL Absolute Nucleated RBC 0.00 x10^3/uL Nucleated RBC % 0.0 /100WBC Sodium 134 L (135-145) mmol/L Potassium 3.7 (3.5-5.0) mmol/L Chloride 102 (101-111) mmol/L Carbon Dioxide 24 (21-32) mmol/L Anion Gap 8.0 (6-13) BUN 33 H (6-20) mg/dL Creatinine 0.8 (0.4-1.0) mg/dL Estimated GFR (MDRD) 69 L (>89) Glucose 117 H (70-100) mg/dL Calcium 8.2 L (8.5-10.3) mg/dL Assessment/Plan - Problem List (1) Acute respiratory failure with hypoxia Impression: She continues to improve. Yesterday she was on room air but became hypoxic with minimal activity. Today she only desaturated to 92% with activity. She still appears quite tachypneic with minimal activity but overall is slowly improving. Today is day 2 of IV antibiotics for a suspected bacterial pneumonia. She is also on Decadron for COVID-19 infection. We did give a one-time dose of Lasix IV today given initial CT showed possible edema and that she has been slow to improve. If she remains on room air throughout today into tomorrow then we will plan for discharge tomorrow. (2) COVID-19 Impression: This is felt to be contributing to the respiratory failure with hypoxia. She is vaccinated and has received a booster dose. Her CT suggested pulmonary edema versus pneumonia. She remains on Decadron and we did add antibiotics given her rising white blood cell count which may have been due to the steroids but she had also been slow to improve. Continue contact precautions. (3) Complications of immobility Impression: She is quite deconditioned and although SNF is recommended, the patient and her prefer to go home with home health. Her informed me that once they are home, they will discuss together if they would like to proceed with palliative care or hospice. (4) Dementia Impression: She does have dementia and has been declining over the past 6 months. The patient is oriented but does not have the ability to make decisions for herself due to her dementia. Her would like to have her home when medically stable to discuss goals of care further. 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 Continue her home TPN regimen with diet as tolerated. Her understands that if she were to go on hospice at some point, then the TPN will be discontinued. (6) Anemia Impression: Impression: Her iron studies are suggestive of anemia of chronic disease with a potential component of iron deficiency. We have started her on oral iron supplementation. Her stool is negative for occult blood. Hemoglobin remains stable. Qualifiers: Anemia type: unspecified type Qualified Code(s): D64.9 - Anemia, unspecified (7) History of urostomy Impression: She has a history of a urostomy. There is a small amount of leaking where the Taveras catheter inserts. We will continue with dressing changes to keep the ostomy as dry as possible. (8) Hypothyroid Impression: Continue synthroid. Qualifiers: Hypothyroidism type: postoperative Qualified Code(s): E89.0 - Postprocedural hypothyroidism
[2021-07-22] MEDS ORDERED: ALBUTEROL NEB 2.5 MG/3 ML INH PRN (18:14)
[2021-07-22] MEDS: FAT EMULSION 20% 250 ML IV SCH (19:08)
[2021-07-22] MEDS: TPN (CLINIMIX E 5/15) 2,000 ML with MULTIVITAMIN 10 ML, TRACE ELEMENTS 1 ML IV SCH ×3 (19:12)
[2021-07-22] MEDS: SODIUM CHLORIDE FLUSH 0.9% 10 ML SYRINGE IVP PRN (19:16)
[2021-07-22] MEDS: IPRATROPIUM/ALBUTEROL 3 ML NEB INH SCH (20:00)
[2021-07-23] MEDS: SODIUM CHLORIDE FLUSH 0.9% 10 ML SYRINGE IVP SCH ×3 (00:40→17:15)
[2021-07-23] MEDS ORDERED: BENZOCAINE/MENTHOL LOZENGE MM PRN (02:14)
[2021-07-23] MEDS: LEVOTHYROXINE 112 MCG TABLET PO SCH (05:16)
[2021-07-23 05:29] LABS: BASOPHILS % (AUTO) 0.2 %; HCT - HEMATOCRIT 33.7 % (37.0-47.0); HGB - HEMOGLOBIN 9.9 g/dL (12.0-16.0); LYMPHOCYTES % (AUTO) 4.8 %; MEAN CORPUSCULAR HEMOGLOBIN 20.8 pg (27.0-31.0); MEAN CORPUSCULAR HGB CONC 29.4 g/dL (32.0-36.0); MEAN CORPUSCULAR VOLUME 70.8 fL (81.0-99.0); MEAN PLATELET VOLUME 9.2 fL (7.9-10.8); MONOCYTES % (AUTO) 3.7 %; NEUTROPHILS % (AUTO) 90.3 %; PLT - PLATELET COUNT 434 10^3/uL (130-450); RED BLOOD COUNT 4.76 10^6/uL (4.20-5.40); RED CELL DISTRIBUTION WIDTH 18.6 % (12.0-15.0); WHITE BLOOD COUNT 21.6 x10^3/uL (4.8-10.8)
[2021-07-23 05:35] LABS: ABNORMAL LYMPHS % (MANUAL) 0 %; BAND NEUTROPHILS % (MANUAL) 0 %
[2021-07-23 05:38] LABS: CALCIUM 8.3 mg/dL (8.5-10.3); CREATININE 0.9 mg/dL (0.4-1.0); POTASSIUM 3.8 mmol/L (3.5-5.0)
[2021-07-23 05:47] LABS: LYMPHOCYTES # (MANUAL) 2.2 10^3/uL (1.5-3.5); LYMPHOCYTES % (MANUAL) 10 %; MONOCYTES # (MANUAL) 0.6 10^3/uL (0.0-1.0); MYELOCYTES % (MANUAL) 1 %; NEUTROPHILS # (MANUAL) 18.6 10^3/uL (1.5-6.6); PLATELET ESTIMATE, MANUAL NORMAL (130-450,000) (NORMAL); PLATELET MORPHOLOGY NORMAL APPEARANCE (NORMAL); RBC MORPHOLOGY (MULTIPLE) NORMAL APPEARANCE (NORMAL); WBC MORPHOLOGY (MULTIPLE) NORMAL APPEARANCE (NORMAL)
[2021-07-23 05:48] LABS: DIFFERENTIAL COMMENT MANUAL DIFFERENTIAL
[2021-07-23] MEDS: IPRATROPIUM/ALBUTEROL 3 ML NEB INH SCH ×2 (07:01→11:22)
[2021-07-23] MEDS: INSULIN ASPART 300 UNIT/3 ML PEN SUBQ SCH (08:16)
[2021-07-23] MEDS: cefTRIAXone 2 GM in SODIUM CHLORIDE 0.9% MINIBAG 100 ML IV SCH (08:17)
[2021-07-23] MEDS: ENOXAPARIN 40 MG/0.4 ML SYRINGE SUBQ SCH (08:18)
[2021-07-23] MEDS: DEXAMETHASONE 4 MG/ML VIAL IVP SCH (08:18)
[2021-07-23] MEDS: AZITHROMYCIN INJ 500 MG in SODIUM CHLORIDE 0.9% 250 ML IV SCH (09:00)
[2021-07-23] MEDS ORDERED: MORPHINE 2 MG/ML CARPUJECT IVP PRN (11:05)
[2021-07-23] MEDS ORDERED: LORazepam 1 MG TABLET PO PRN (11:05)
[2021-07-23] MEDS ORDERED: MORPHINE SOL 10 MG/0.5 ML ORAL SYRINGE PO PRN (11:05)
--- NOTE | 2021-07-23 11:07 | ADVANCE CARE PLANNING NOTE ---
Advance Care Planning - Planning Encounter Date: 07/23/21 Time: 11:00 Purpose: To clarify goals of care. Parties in Attendance: The patient and her spouse, [place]. Myself. Decisional Capacity of the Patient: She does have dementia but understands her current condition and I do believe she has ability to make her own medical decisions. Her is also present and supports her decisions. - Diagnosis for Encounter (1) Acute respiratory failure with hypoxia Summary: She was admitted due to respiratory failure suspected be secondary to Covid [address] pneumonia [address] angiogram was negative for pulmonary embolism. Despite therapy, she still is quite tachypneic and the concern is now that she may potentially be septic given the rise in her white blood cell count and the lack of significant chest x-ray findings. (2) Complications of immobility Summary: Due to her significant medical history, she has had significant issues with mobility. She is very deconditioned and has a poor functional status. She is for the most part bedbound. (3) Dementia Qualifiers: Dementia type: Alzheimer's Alzheimer's disease onset: late-onset Dementia behavioral disturbance: without behavioral disturbance Qualified Code(s): G30.1 - Alzheimer's disease with late onset; F02.80 - Dementia in other diseases classified elsewhere without behavioral disturbance Summary: This has been progressive over the past 6 months. She is alert and oriented but is forgetful and has difficulty with short-term memory. (4) Altered bowel elimination due to intestinal ostomy Summary: She is on chronic TPN due to malnutrition. - Encounter Subjective/Patient's Story: She has been to her for 62 years. The patient and her have both noticed a significant decline in her functional status over the past 5 years. This occurred after a left hip fracture. Her has noticed that she has had progressive dementia over the past 6 months and has become more forgetful. She has become more sedentary and her quality of life has significantly diminished because of this. Objective/Medical Story: She has extensive medical history as previously outlined which includes a history of cervical cancer, lung cancer. She has history of small bowel resec tion with ileostomy. She also had a history of bladder is cancer and required diverting urostomy. She is now admitted with respiratory failure which was initially thought to be due to COVID-19 pneumonia. She was treated with steroids and antibiotics given concern for potential bacterial component. She had a CT angiogram which showed no evidence of pulmonary embolism. Despite supportive measures, she has continued to decline. The concern is now that she may potentially be septic given her significant rise in the white blood cell count and her ongoing tachypnea despite lack of hypoxia and relatively unremarkable chest x-ray. She has already been receiving ceftriaxone and azithromycin as well as Decadron. We have continued her on the TPN during this hospitalization. Goals of Care: The patient has made it quite clear today that she has been through so much in her life and she understands that her health has been declining significantly. She no longer wants to continue with current medical therapy and would like to focus on her comfort and to be home with her and her dog. Her also expressed concern about her decline and is in agreement with this plan. They would both like to optimize her quality of life. They both understand that TPN will need to be discontinued if she were to go home on hospice. Plan: The plan is now to transition her to comfort measures only. We will discontinue antibiotics and will not obtain any further lab draws. She does not want further work-up of the potential infection or her dyspnea. We will stop the TPN. I have spoken with the hospice care consultant and she will let us know if we can potentially admit the patient to hospice tomorrow. We have not worked with social work to obtain a hospital bed at home. The patient and her are hopeful that she can be discharged home tomorrow on hospice. We have started her on morphine and lorazepam as needed for dyspnea and anxiety. Code Status: Do Not Attempt Resuscitation Time spent on advance care plannin
--- NOTE | 2021-07-23 11:07 | PROVIDER PROGRESS NOTE ---
Subjective - Prog Note Date Prog Note Date: 07/23/21 - Subjective Subjective: She reports that she really does feel like her body is failing her at this point. She does not want to keep going through everything that she has been and understands she is declining from a health standpoint. She wants to just focus on her comfort and to go home with her family and to see her dog. Current Medications - Current Medications Current Medications: Active Medications Acetaminophen (Acetaminophen 325 Mg Tablet) 650 mg PO Q4HR PRN PRN Reason: Pain 1 to 4, or Fever Albuterol (Albuterol 1 Puff) 2 puffs INH Q4HR PRN PRN Reason: Wheezing Stop: 07/26/21 07:00 Last Admin: 07/21/21 08:41 Dose: 2 puffs Albuterol (Albuterol Neb 2.5 Mg/3 Ml) 2.5 mg INH RTQ4H PRN PRN Reason: Wheezing Heparin Sodium (Beef Lung) (Heparin Flush 50 Units/5 Ml Syringe) 30 - 50 unit IVP PRN PRN PRN Reason: Port Protocol (<24 hours) Last Admin: 07/22/21 19:15 Dose: 50 unit Levothyroxine Sodium (Levothyroxine 112 Mcg Tablet) 112 mcg PO QDAC NICHO Last Admin: 07/23/21 05:16 Dose: 112 mcg Lorazepam (Lorazepam 1 Mg Tablet) 1 mg PO Q6H PRN PRN Reason: Anxiety/Agitation Morphine Sulfate (Morphine Althea 10 Mg/0.5 Ml Oral Syringe) 5 mg PO Q2HR PRN PRN Reason: NEEDED PER PROVIDER ORDERS Morphine Sulfate (Morphine 2 Mg/Ml Carpuject) 2 mg IVP Q2HR PRN PRN Reason: Pain or Shortness of air Multi-Ingredient Ointment (Zinc Oxide 20% Oint 30 Gm Tube) 1 applic TOP PRN PRN PRN Reason: Skin Care Last Admin: 07/21/21 11:46 Dose: 1 applic Ondansetron HCl (Ondansetron Odt 4 Mg Tablet) 4 mg TL Q6HR PRN PRN Reason: Nausea / Vomiting Ondansetron HCl (Ondansetron 4 Mg/2 Ml Vial) 4 mg IVP Q6HR PRN PRN Reason: Nausea / Vomiting Sodium Chloride (Sodium Chloride Flush 0.9% 10 Ml Syringe) 10 ml IVP PRN PRN PRN Reason: NEEDED PER PROVIDER ORDERS Last Admin: 07/22/21 19:16 Dose: 10 ml Sodium Chloride (Sodium Chloride Flush 0.9% 10 Ml Syringe) 10 ml IVP 0100,0900,1700 NICHO Last Admin: 07/23/21 08:19 Dose: 10 ml Levothyroxine Sodium [Synthroid] 112 mcg PO QDAC 06/05/17 Albuterol Sulfate [Proair Hfa Inhaler] 1 - 2 puffs INH Q4H PRN 07/19/21 Cyclobenzaprine [Flexeril] 10 mg PO DAILY PRN 07/19/21 Ondansetron HCl 4 mg PO BID PRN 07/19/21 Oxycodone HCl 10 mg PO Q6H PRN 07/19/21 Umeclidinium Brm/Vilanterol Tr [Anoro Ellipta 62.5-25 Mcg INH] 1 puffs INH DAILY 07/19/21 Objective - Vital Signs/Intake & Output Reviewed Vital Signs: Yes Vital Signs: Vital Signs x48h Temp Pulse Pulse Resp BP Pulse Ox 07/23/21 08:29 36.8 C 110 H 28 H 135/56 H 98 07/23/21 07:02 106 H 26 H 07/23/21 04:55 37.3 C 107 H 28 H 145/73 H 94 Intake & Output: Intake & Output 07/20/21 07/21/21 07/22/21 07/23/21 23:59 23:59 23:59 23:59 Intake Total 2604.333 3378 3426.45 750 Output Total 1625 950 800 Balance 108.544 7258 2626.45 750 - Objective General Appearance: positive: Other (She looks to be in distress today and is quite tachypneic.) Eyes Bilateral: positive: Conjunctivae nml Respiratory: positive: Rhonchi, Other (She is much more tachypneic compared to yesterday and appears to be in some respiratory distress at times.). negative: No respiratory distress Cardiovascular: positive: Regular rate & rhythm, Tachycardia. negative: Irregularly irregular, Systolic murmur Abdomen: positive: Other (Ileostomy in place. Urostomy right lower quadrant with a Taveras catheter in place that is leaking.) Skin: positive: Warm, Dry Extremities: positive: No pedal edema Neurologic/Psychiatric: negative: Disoriented to person, Disoriented to place, Disoriented to time - Lab Results Fish Bones: 07/23/21 05:15 07/23/21 05:15 Other Labs: Lab Results x24hrs 07/23/21 07/23/21 Range/Units 05:15 05:15 WBC 21.6 H (4.8-10.8) x10^3/uL RBC 4.76 (4.20-5.40) 10^6/uL Hgb 9.9 L (12.0-16.0) g/dL Hct 33.7 L (37.0-47.0) % MCV 70.8 L (81.0-99.0) fL MCH 20.8 L (27.0-31.0) pg MCHC 29.4 L (32.0-36.0) g/dL RDW 18.6 H (12.0-15.0) % Plt Count 434 (130-450) 10^3/uL MPV 9.2 (7.9-10.8) fL Neut # (Auto) Not Reportable Lymph # (Auto) Not Reportable Lucas # (Auto) Not Reportable Eos # (Auto) Not Reportable Baso # (Auto) Not Reportable Absolute Nucleated RBC Not Reportable Total Counted 100 Band Neuts % (Manual) 0 (0 - 10) % Abnorm Lymph % (Manual) 0 % Myelocytes % 1 H ( - 0) % Nucleated RBC % Not Reportable Neutrophils # (Manual) 18.6 H (1.5-6.6) 10^3/uL Lymphocytes # (Manual) 2.2 (1.5-3.5) 10^3/uL Monocytes # (Manual) 0.6 (0.0-1.0) 10^3/uL Eosinophils # (Manual) 0.0 (0-0.7) 10^3/uL Basophils # (Manual) 0.0 (0-0.1) 10^3/uL Differential Comment MANUAL DIFFERENTIAL WBC Morphology NORMAL APPEARANCE (NORMAL) Platelet Estimate NORMAL (130-450,000) (NORMAL) Platelet Morphology NORMAL APPEARANCE (NORMAL) RBC Morph Micro Appear NORMAL APPEARANCE (NORMAL) Sodium 135 (135-145) mmol/L Potassium 3.8 (3.5-5.0) mmol/L Chloride 100 L (101-111) mmol/L Carbon Dioxide 25 (21-32) mmol/L Anion Gap 10.0 (6-13) BUN 42 H (6-20) mg/dL Creatinine 0.9 (0.4-1.0) mg/dL Estimated GFR (MDRD) 60 L (>89) Glucose 108 H (70-100) mg/dL Calcium 8.3 L (8.5-10.3) mg/dL ABX Reporting Has patient been on IV antibiotics over the past 48 hours?: Yes Assessment/Plan - Problem List (1) Acute respiratory failure with hypoxia Impression: She remains on room air but is visibly much more tachypneic today and in distress. The concern is now that her dyspnea may potentially be due to sepsis. She had a work-up with CT which showed no evidence of PE and suggested edema versus pneumonia. She has been on antibiotics for bacterial pneumonia as well as Decadron for COVID-19 pneumonia. We trialed a dose of Lasix yesterday which did not provide her much benefit. Today her white blood cell count is 20,000 an d she is tachycardic. We discussed that we would like to obtain repeat labs including a lactic acid and check blood cultures as well as broaden her antibiotics. We discussed she may have potential have a urinary tract infection or other source of infection causing her to feel so short of breath. The patient at this point expressed to me that she understands her body is failing her and she does not want to keep going through all of this medical therapy. She is tired of all the blood draws and IVs. I spoke with her and informed him of the patient's wishes. As previously documented the prior days, he is not surprised as he agrees that she has been through a lot and has been rapidly declining. He came in today and we discussed goals of care with the patient and her spouse. Please see the advance care planning document dated today. Ultimately, they have decided to focus on the patient's comfort and will transition to comfort measures. We will discontinue all IV antibiotics and the TPN. We will no longer check labs. We will start her on morphine with Ativan as needed. We will look to discharge her home tomorrow with hospice admitting as soon as possible. (2) COVID-19 Impression: We are now discontinuing antibiotics and the steroids given the goal is to focus on her comfort as documented above. Continue contact precautions. (3) Complications of immobility Impression: She is quite deconditioned and the goal is now to discharge her home on hospice. We will have social work meet with the patient and her family as they may need the assistance of caregivers at home. (4) Dementia Impression: She does have dementia that has been progressing over the past 6 months. She is alert and oriented and has expressed her wishes. Her is in agreement with this. We will look to transition her to hospice at home. Qualifiers: Dementia type: Alzheimer's Alzheimer's disease onset: late-onset Dementia behavioral disturbance: without behavioral disturbance Qualified Code(s): G30.1 - Alzheimer's disease with late onset; F02.80 - Dementia in other diseases classified elsewhere without behavioral disturbance (5) Altered bowel elimination due to intestinal ostomy Impression: We will discontinue the TPN now that she would like to focus on her comfort. (6) Anemia Impression: We have discontinued the iron supplementation. Qualifiers: Anemia type: unspecified type Qualified Code(s): D64.9 - Anemia, unspecified (7) History of urostomy Impression: We will keep the catheter in place given that urostomy. Continue with dressing changes to keep the ostomy as dry as possible for comfort purposes. (8) Hypothyroid Impression: We will continue the Synthroid. Qualifiers: Hypothyroidism type: postoperative Qualified Code(s): E89.0 - Postprocedural hypothyroidism
[2021-07-23] MEDS: SODIUM CHLORIDE FLUSH 0.9% 10 ML SYRINGE IVP PRN (12:10)
[2021-07-23] MEDS: ZINC OXIDE 20% OINT 30 GM TUBE TOP PRN (17:15)
[2021-07-24] MEDS: SODIUM CHLORIDE FLUSH 0.9% 10 ML SYRINGE IVP SCH ×2 (00:40→09:24)
[2021-07-24] MEDS: LEVOTHYROXINE 112 MCG TABLET PO SCH (06:14)
--- NOTE | 2021-07-24 08:47 | Discharge Plan ---
Discharge Plan Problem Reviewed?: Yes Disposition: 50 Hospice/Home DC/Xfer Condition: Poor Prescriptions: LORazepam [Ativan] 1 mg PO Q6H PRN #15 tablet PRN Reason: Anxiety/Agitation Morphine Oral Soln [Roxanol] 5 mg PO Q4H PRN #15 ml PRN Reason: As Needed Per Provider Orders Ondansetron Odt [Zofran Odt] 4 mg TL Q6H PRN #10 tablet PRN Reason: Nausea / Vomiting Diet: Regular Health Concerns: You were admitted to the hospital because of difficulty breathing. We thought this may be due to pneumonia due to Covid or a bacterial infection. We treated you with antibiotics and steroids. Although you no longer require oxygen, you were still quite short of breath. After further discussion with you and your family, he had decided to focus on your comfort and transition to hospice. Plan of Treatment: The plan is to focus on your comfort at home. We will be providing you with medication like morphine and lorazepam to take as needed for pain and anxiety respectively. You can continue take your thyroid medications. The TPN will be discontinued since you are now on hospice. You may continue with the inhalers as needed. Care Goals: The goal is to focus on your comfort. Assessment: The patient and family expressed understanding of the treatment plan. Additional Instructions or Follow Up instructions: Please follow-up with hospice on discharge. Follow-Up Care: Hospice No Smoking: If you smoke, Please STOP! Call for help. Follow-up with: LEW ACHARYA MD [Primary Care Provider] -
--- NOTE | 2021-07-24 10:43 | DISCHARGE SUMMARY ---
Discharge Summary Admit Date: 07/18/21 Discharge Date: 07/24/21 Discharging Provider: Vinod Jaquez Primary Care Provider: Felicia Chaudhry Code Status: Do Not Attempt Resuscitation Condition at Discharge: Poor Discharge Disposition: 50 Hospice/Home DC/Xfer - DIAGNOSES Admission Diagnoses: Acute respiratory failure with hypoxia COVID-19 COPD Renal insufficiency Calorie malnutrition Complications of immobility Anemia Anxiety and depression Hypothyroidism History of urinary diversion procedure Assistance needed for personal hygiene Dementia Discharge Diagnoses with Status of Each Condition: Acute respiratory failure with hypoxia - resolved. COVID-19 - stable. Complications of immobility - ongoing. Dementia - stable. Altered bowel elimination due to intestinal ostomy - stable. Anemia - stable. History of urostomy - stable. Hypothyroidism - stable. - HPI History of Present Illness: H&P per Dr. Gatica: This is a patient who had some type of lung neoplasm treated 2-1/2 years ago. It is unclear if this was a primary lung neoplasm or whether it was metastatic disease from her remote cervical cancer from 1965 that recurred in 1991. For 1- 1/2 years she did "okay" after the treatment. She is described as having emphysema from her remote cigarettes that she stop smoking in approximately 1989. But she is not on oxygen. She did not have any need for bronchodilators either. Starting 5 or 6 months ago she began having increasing shortness of breath, increasing cough and increasing production of mucus. At times is quite copious and overwhelming. She and her are careful about their exposure because of her immunocompromised status. He goes out for groceries and she basically stays home. He became ill last week, and was diagnosed with Covid on Saturday (today is Saturday). He states that he kept a "close eye on her" this last weekend and she seemed to be doing okay. Her lung problems were stable. Then for the last 2 days she has been complaining of increasing fatigue, chills, coldness, but at the same time felt feverish. Cough was getting worse. No hemoptysis. No new GI symptoms. Today she was so fatigued that her called EMS.. This morning she became so short of breath. With the emergency room provider she was tachycardic to a heart rate was 122. Temperature was 37.7. Blood pressure 149/59. Respiratory rate 28. 88% on room air requiring 3 L to saturate to 94%. The emergency room provider described her as a fatigued, confused elderly female. She did respond to nasal cannula oxygen and tachypnea and tachycardia improved. Chest x-ray had no acute cardiopulmonary abnormality. She does have the right port in place with the catheter tip at the right atrium. Calcified granuloma in the right midlung. Curvilinear opacity in the left midlung is unchanged. These are compared to chest x-rays from December and March 2021.Laboratory studies showed her to have acute kidney insufficiency. Baseline creatinine is 0.9 and she is 1.1. Baseline GFR is 60 and she is 48 today. Albumin is chronically low and she is 2.4 today. Total protein 8.1. White cell count 9.8 and hemoglobin is 8.7. She is usually chronically anemic with a hemoglobin of 9.3-9.5. She is Covid positive. Urinalysis has a large amount of leukocyte Estrace, greater than 25 white cells, 6-10 red cells, rare squamous, few bacteria. We are now placing her in inpatient status for acute hypoxia due to Covid pneumonia and possible early COPD exacerbation - HOSPITAL COURSE Hospital Course: The patient was admitted for acute hypoxic respiratory failure which was thought to be secondary to COVID-19 and a potential COPD exacerbation. She underwent a CT angiogram which showed no evidence of pulmonary embolism but did suggest mild pulmonary edema versus pneumonia. She was started on Decadron for the COVID-19 infection. Her oxygen requirements did improve but she still remained quite dyspneic and tachypneic with minimal activity. Her white blood cell count began to increase so we added ceftriaxone and azithromycin for potential bacterial component of infection. Despite this, she was still quite tachypneic and dyspneic. There was low suspicion for heart failure given her lack of edema and relatively low BNP but we did trial a dose of IV Lasix without improvement in her symptoms. Her white blood cell count then began to rise to nearly 20,000. The concern was for sepsis and further work-up with blood cultures, urinalysis, broadening of antibiotics was recommended. This was discussed with the patient and her and they ultimately decided to focus on her comfort and to transition to comfort measures with the plan of discharging home on hospice. Therefore all antibiotics were discontinued. She will be discharged home today and hospice will be admitting tomorrow. Hospital bed will not be delivered until tomorrow but the patient prefers to go home today and her feels that he can care for her at home. A prescription was sent for Roxanol and lorazepam to take as needed. I also recommended to continue taking the Synthroid and her albuterol as needed. - ALLERGIES Allergies/Adverse Reactions: Allergies Allergy/AdvReac Type Severity Reaction Status Date / Time codeine Allergy Nausea Verified 07/18/21 17:28 ciprofloxacin [From Cipro] AdvReac bones ache Verified 07/18/21 17:28 - MEDICATIONS Home Medications: Ambulatory Orders Medication Instructions Recorded Confirmed Levothyroxine Sodium [Synthroid] 112 mcg PO QDAC 06/05/17 07/18/21 Albuterol Sulfate [Proair Hfa 1 - 2 puffs INH Q4H PRN 07/19/21 07/19/21 Inhaler] Umeclidinium Brm/Vilanterol Tr 1 puffs INH DAILY 07/19/21 07/19/21 [Anoro Ellipta 62.5-25 Mcg INH] LORazepam [Ativan] 1 mg PO Q6H PRN #15 tablet 07/24/21 Morphine Oral Soln [Roxanol] 5 mg PO Q4H PRN #15 ml 07/24/21 Ondansetron Odt [Zofran Odt] 4 mg TL Q6H PRN #10 tablet 07/24/21 - PHYSICAL EXAM AT DISCHARGE General Appearance: positive: Alert, Mild distress Eyes Bilateral: positive: Normal inspection, Conjunctivae nml ENT: positive: ENT inspection nml Respiratory: positive: Other (She is nondistressed today but she is still tachypneic. Breath sounds diminished.). negative: Wheezes, Rales Cardiovascular: positive: Regular rate & rhythm, Tachycardia. negative: Irregularly irregular, Systolic murmur Abdomen: positive: Non-tender, No distention, Other (Ileostomy in place. Urostomy is also in place with a Taveras catheter present. There is a small amount of leakage surrounding the catheter insertion site.) Skin: positive: Warm, Dry Extremities: positive: No pedal edema Neurologic/Psychiatric: negative: Disoriented to person, Disoriented to place Physical Exam Other/Comments: Vital Signs - 24 hr 07/23/21 07/24/21 07/24/21 16:33 00:38 08:16 Temperature 36.9 C 36.6 C Heart Rate [ 87 91 100 Brachial] Respiratory 28 H 29 H 22 Rate Blood Pressure 108/63 109/60 [Right Brachial artery] O2 Saturation 94 93 92 07/24/21 14:21 Temperature 36.4 C L Heart Rate [ 87 Brachial] Respiratory 22 Rate Blood Pressure 130/87 H [Right Brachial artery] O2 Saturation 94 Oxygen O2 Source Room air - LABS Result Diagrams: 07/23/21 05:15 07/23/21 05:15 - DIAGNOSTIC IMAGING Diagnostic Imaging Results: Final report reviewed - FOLLOW UP Follow Up: She will be following up with hospice tomorrow. - TIME SPENT Time Spent in Discharge (Minutes): 34
[2021-07-24 14:22] VITALS: BP 130/87
== END 2021-07-24 16:40 | disposition hospice, home (50) | DRG 177 ==
LOC: EDUNIT# → ED 17:03 → MS2 22:08
PROVIDERS: ADMIT Specialist; ATTEND Internal Medicine
PROC: XW033E5 Introduction of Remdesivir Anti-infective into Peripheral Vein, Percutaneous Approach, New Technology Group 5 (ICD-10-PCS; principal; 2021-07-19)
PROC: 3E0333Z Introduction of Anti-inflammatory into Peripheral Vein, Percutaneous Approach (ICD-10-PCS; 2021-07-19)
PROC: 3E0336Z Introduction of Nutritional Substance into Peripheral Vein, Percutaneous Approach (ICD-10-PCS; 2021-07-19)
DX: U07.1 COVID-19 (principal); R09.02 Hypoxemia; J44.9 Chronic obstructive pulmonary disease, unspecified; J96.01 Acute respiratory failure with hypoxia; R06.82 Tachypnea, not elsewhere classified; R00.0 Tachycardia, unspecified; I50.9 Heart failure, unspecified; E03.9 Hypothyroidism, unspecified; J12.82 Pneumonia due to coronavirus disease 2019; A41.9 Sepsis, unspecified organism; J15.9 Unspecified bacterial pneumonia; E44.1 Mild protein-calorie malnutrition; R53.1 Weakness; D64.9 Anemia, unspecified; R19.4 Change in bowel habit; G30.9 Alzheimer's disease, unspecified; F02.80 Dementia in other diseases classified elsewhere, unspecified severity, without behavioral disturbance, psychotic disturbance, mood disturbance, and anxiety; J43.9 Emphysema, unspecified; Z66 Do not resuscitate; N28.9 Disorder of kidney and ureter, unspecified; F41.9 Anxiety disorder, unspecified; E89.0 Postprocedural hypothyroidism; F32.A Depression, unspecified; Z96.641 Presence of right artificial hip joint; Z93.2 Ileostomy status; Z99.3 Dependence on wheelchair; Z85.41 Personal history of malignant neoplasm of cervix uteri; Z85.118 Personal history of other malignant neoplasm of bronchus and lung; Z85.51 Personal history of malignant neoplasm of bladder; Z85.850 Personal history of malignant neoplasm of thyroid; Z93.6 Other artificial openings of urinary tract status; Z51.5 Encounter for palliative care; Z87.891 Personal history of nicotine dependence
CPT/HCPCS: 36415; 71045; 71275; 80048; 80053; 82272; 82607; 82728; 82746; 83540; 83690; 83735; 83880; 84100; 84134; 84443; 84466; 84478; 85025; 87633; 94640; 94664; 96361; 96374; 97161; 97165; 97530; 99285; A9270; J1650; J2060; J3490; J7512; Q9967; 83605

== ENCOUNTER 2021-07-24 16:42 | Outpatient (CLI) | payer MEDICARE, OTHER | END 2021-07-24 16:43 | disposition home or self-care (01) | LOC: EMS 16:42 | PROVIDERS: ATTEND Internal Medicine | DX: U07.1 COVID-19 (principal); R53.1 Weakness; Z51.5 Encounter for palliative care; Z74.01 Bed confinement status | CPT/HCPCS: A0425; A0428 ==